=== PATIENT | male | born 1950 | race Caucasian/White ===

== ENCOUNTER 2018-05-01 14:35 | Inpatient (IN) | END 2018-05-02 18:37 | disposition home or self-care (01) | DRG 281 ==

== ENCOUNTER 2018-05-27 08:33 | Emergency (ER) | END 2018-05-27 12:58 ==

== ENCOUNTER 2018-06-20 12:57 | Inpatient (IN) | payer MEDICARE ==
[~2018-06-20] VITALS: Ht 185.4 cm; Wt 117.4 kg
[2018-06-20] VITALS (9 sets, daily range): BP systolic 131–162; BP diastolic 70–94; PULSE 77–98; RESP 16–23; Ht 185.4 cm; Wt 117.4 kg
[~2018-06-20 12:57] MED LIST: ASPI-831 PO; ATOR20TA65 PO; CARV6.2579 PO; GLIP10TA14 PO; LOSA50TA2 PO; METF-849 PO; METO-407 PO; MIRT15TA5 PO; ZOLP10TA5 PO
[2018-06-20] MEDS ORDERED: LORAZEPAM 2 MG INJ IV STA (13:16)
[2018-06-20] MEDS ORDERED: SOD CHLORIDE 0.9% 1,000 ML IV STA ×2 (13:16→14:00)
[2018-06-20] MEDS ORDERED: INSULIN LISPRO 100 UNIT/ML VIAL SC ONE (14:00)
[2018-06-20] MEDS ORDERED: ACETAMINOPHEN 325 MG TAB PO PRN (14:30)
[2018-06-20] MEDS ORDERED: ONDANSETRON 4 MG INJ IV PRN ×2 (14:30→15:30)
[2018-06-20] MEDS ORDERED: SODIUM CHLORIDE 23.4% 77 MEQ in DEXTROSE 10% 1,000 ML IV SCH (15:14)
[2018-06-20] MEDS ORDERED: POTASSIUM CHLORIDE 40 MEQ in SOD CHLORIDE 0.9% 1,000 ML IV SCH (15:14)
[2018-06-20] MEDS ORDERED: POTASSIUM CHLORIDE 30 MEQ in SOD CHLORIDE 0.9% 1,000 ML IV SCH (15:14)
[2018-06-20] MEDS ORDERED: NACL 0.9% 3 ML SYG IV SCH (15:30)
[2018-06-20] MEDS ORDERED: morphine SULFATE/PF (2 MG/2 ML) SYG IV PRN (15:30)
[2018-06-20] MEDS ORDERED: HYDROCODONE/APAP (5/325) TAB PO PRN (15:30)
[2018-06-20] MEDS ORDERED: MAGNESIUM HYDROXIDE 30ML CUP PO PRN (15:30)
[2018-06-20] MEDS ORDERED: hydrALAzine 20 MG INJ IV PRN (15:30)
[2018-06-20] MEDS ORDERED: DOCUSATE SODIUM 100 MG CAP PO PRN (15:30)
[2018-06-20] MEDS ORDERED: ALBUTEROL/IPRATROPIUM (NEB) 3 ML AMP HHN PRN (15:30)
[2018-06-20] MEDS ORDERED: NITROGLYCERIN (SL) 0.4 MG TAB SL PRN (15:30)
[2018-06-20] MEDS: ACCU-CHEK XX SCH ×8 (16:00→23:07)
--- NOTE | 2018-06-20 16:04 | NUR ---
SS Note: Consult The patient is a 68-year-old male who presented in ED with SI. Pt required admission for medical care and transferred to [facility]. SW met with pt at bedside to provide support, complete psychosocial assessment, and link pt to appropriate resources. Pt awake, alert, and oriented x4. Pt appeared depressed, hopeless, and helpless. He was calm and cooperative with SW. Pt reported hx of depression, which worsened on March 2018 when he lost his cat and was feeling lonely. Pt reported "feeling down", racing thoughts, poor appetite, and insomnia. Pt denied active SI at this time but stated he is "being passive by not eating". No HI. No AH/VH. Pt reported taking Remeron 20mg prescribed by PCP. Pt denied f/u with an outpatient mental health specialist and it's been difficult to find a psychiatrist. Per record, Pt was in the ED on 05/27/18 due to SI with plan to OD and transferred to [facility] for further psychiatric care. Per pt, he was d/c after 4 days and d/c with Rx for Remeron and Seroquel for sleeping. Pt feels Remeron is not working for for him and would like to try a different psych medication. Pt is single and has no children. Pt verbally appointed his sister, Rain Lopez , who lives in [place] as surrogate decision maker/spokesperson. Pt named his friend/supervisory training specialist, Bernardo Sandoval , as his primary support. Pt lives alone with his cat at [address]. 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 Pt is independent with ADL's and does not require DME. Pt has Medicare Part A and B insurance and has a PCP. Pt on 1:1 sitter for pt safety. placed order for [employer] psych eval. Psych eval pending for recommendation.
--- NOTE | 2018-06-20 16:11 | HP ---
Date/Time of Note Date/Time of Note DATE: 06/20/18 TIME: 16:04 Assessment/Plan VTE Prophylaxis Pharmacological prophylaxis: heparin Lines/Catheters IV Catheter Type (from [facility], [place]): Peripheral IV Assessment/Plan Hospital Course Assessment and plan: 68-year-old male diabetes, high cholesterol, depression, prior suicide ideation, hypertension who presents with DKA mild, suicidal ideation, AK I. #Depression/suicidal ideation: Again patient has been feeling this way for the last 5 days and stopped eating at that time -Continue to monitor patient likely with 1 1 sitter, will get psychiatry consult -Figueroa PIERREN #Mild DKA: Again sugars are in the mid to high 300 range with anion gap Anna elevated, bicarb slightly decreased as well. -For now we will do an admission to the ICU, start IV fluids and IV insulin. I suspect patient will correct fairly quickly however we want to make sure he gets appropriate treatment in the beginning. -Follow-up A1c -Replete electrolytes as needed #Acute kidney injury: When patient was last here in the hospital about a month ago his creatinine was 1.4. Today's 2.0 -Continue IV fluids, monitor urine output -Monitor BUN/creatinine levels, will get renal consult # DM -see above #High cholesterol: Final patient's home medications, follow-up lipid panel HPI/ROS Admit Date/Time Admit Date/Time Jun 20, 2018 at 14:17 ROS 68-year-old male past medical history of depression, diabetes, high cholesterol, prior non-ST elevation MN, hypertension who presents with elevated blood sugars and anxiety/suicidal ideation. Patient states he has been feeling depressed and having suicidal thoughts, but apparently did not go through with any attempts recently, but these have been going on for last 5 days. He subsequently stopped eating for the last 5 days. Is also had some nonbilious nonbloody vomiting mild, nausea symptoms and diarrhea. No fevers or chills, no upper or lower GI bleeding, no diarrhea constipation, no chest pain or shortness of breath. Apparently the patient had a suicide ideation symptoms as well 1 month ago and at that time he had taken clonidine extra doses, but again that was a month ago. When he came in today he was found with a creatinine of 2.0. He was also found with elevated blood sugars in the 300 range and slight elevation in his anion gap so signs of early DKA. An attempt was made apparently in the ER to have a psychiatrist evaluate the patient for his suicidal ideations, however this was not performed but a social insurance analyst has spoken to the patient today. PMH/Family/Social Past Medical History Coded Allergies: Penicillins (Verified Allergy, Unknown, 05/27/18) Past Surgical History Past Surgical Hx: no surgical history Family History Significant Family History: no pertinent family hx Social History Smoking Status: Never smoker Drug Use: none Exam/Review of Systems Vital Signs Vitals Vital Signs Date Temp Pulse Resp B/P (MAP) Pulse Ox O2 O2 Flow FiO2 Time Delivery Rate 06/20/18 97.7 98 19 145/70 98 Room Air 15:39 (95) Exam Exam Gen: lying in bed, No acute distress Head: Atraumatic Eyes: Normal Conjunctiva ENT: Normal External Ears, Nose and Mouth. Neck: Full range of motion. No meningismus. Resp: Clear to auscultation bilaterally Cardio: Regular rate and rhythm, no murmurs Abd: Soft, non tender, non distended. Normal bowel sounds Ext: no lower extremity edema bilaterally Neur: No focal deficits Medications Medications Current Medications IV Flush (NS 3 ml) 3 ml PER PROTOCOL IV ; Start 06/20/18 at 15:30 Ondansetron HCl (Zofran Inj) 4 mg Q6H PRN IV NAUSEA AND/OR VOMITING; Start 06/20/18 at 15:30 Acetaminophen (Tylenol Tab) 650 mg Q6H PRN PO PAIN LEVEL 1-3 OR FEVER; Start 06/20/18 at 15:30 Acetaminophen/ Hydrocodone Bitart ([place] (5/325)) 1 tab Q6H PRN PO MODERATE PAIN LEVEL 4-6; Start 06/20/18 at 15:30 Morphine Sulfate (morphine SULFATE (PF)) 2 mg Q4H PRN IV SEVERE PAIN LEVEL 7- 10; Start 06/20/18 at 15:30 Docusate Sodium (Colace) 100 mg Q12H PRN PO CONSTIPATION; Start 06/20/18 at 15:30 Magnesium Hydroxide (Milk Of Mag) 30 ml DAILY PRN PO CONSTIPATION; Start 06/20/18 at 15:30 Pantoprazole (Protonix Iv) 40 mg DAILY@06 IV ; Start 06/20/18 at 17:00 Heparin Sodium (Porcine) (Heparin (5000 Units/1ml)) 5,000 unit Q12 SC ; Start 06/20/18 at 17:00 Lorazepam (Ativan) 1 mg Q4H PRN IV ANXIETY; Start 06/20/18 at 15:30 Sodium Chloride 1,000 ml @ 100 mls/hr Q10H IV ; Start 06/20/18 at 16:30 Albuterol/ Ipratropium (Duoneb) 3 ml Q4H RESP THERAPY PRN HHN SHORTNESS OF BREATH; Start 06/20/18 at 15:30 Hydralazine HCl (Apresoline) 10 mg Q6H PRN IV ELEVATED BLOOD PRESSURE; Start 06/20/18 at 15:30 Nitroglycerin (Nitroglycerin (Sl Tab) 0.4 Mg) 1 tab Q5M PRN SL ANGINA; Start 06/20/18 at 15:30 Diagnostic Test (Pha) (Accu-Chek) 1 ea Q1H XX ; Start 06/20/18 at 16:00 Potassium Chloride 40 meq/ Sodium Chloride 1,020 ml @ 0 mls/hr Q0M IV ; Start 06/20/18 at 15:14 Sodium Chloride 77 meq/Potassium Chloride 40 meq/ Dextrose 1,039.25 ml @ 0 mls/hr Q0M IV ; Start 06/20/18 at 17:30 Potassium Chloride 30 meq/ Sodium Chloride 1,015 ml @ 0 mls/hr Q0M IV ; Start 06/20/18 at 15:14 Sodium Chloride 77 meq/Potassium Chloride 30 meq/ Dextrose 1,034.25 ml @ 0 mls/hr Q0M IV ; Start 06/20/18 at 15:14 Sodium Chloride 1,000 ml @ 0 mls/hr Q0M IV ; Start 06/20/18 at 16:30 Sodium Chloride 77 meq/Dextrose 1,019.25 ml @ 0 mls/hr Q0M IV ; Start 06/20/18 at 15:14 Insulin Human Regular 100 unit/ Sodium Chloride 100 ml @ 11.7 mls/hr DKA PROTOCOL IV ; Start 06/20/18 at 16:30 Aspirin (Aspirin) 81 mg DAILY PO ; Start 06/20/18 at 17:00 Atorvastatin Calcium (Lipitor) 20 mg HS PO ; Start 06/20/18 at 21:00 Carvedilol (Coreg) 6.25 mg BID PO ; Start 12/21/18 at 17:00 Mirtazapine (Remeron) 15 mg HS PO ; Start 06/20/18 at 21:00 Results Result Diagram: 06/20/18 1320 06/20/18 1320 Results 24 hrs Laboratory Tests Test 06/20/18 13:06 06/20/18 13:20 06/20/18 14:52 Bedside Glucose 344 H 279 H White Blood Count 10.1 Red Blood Count 5.33 Hemoglobin 15.6 Hematocrit 45.8 Mean Corpuscular Volume 85.9 Mean Corpuscular Hemoglobin 29.3 Mean Corpuscular 34.1 Hemoglobin Concent Red Cell Distribution Width 12.7 Platelet Count 286 Mean Platelet Volume 11.1 H Immature Granulocytes % 0.600 H Neutrophils % 67.9 Lymphocytes % 21.3 Monocytes % 7.7 Eosinophils % 2.2 Basophils % 0.3 Nucleated Red Blood Cells % 0.0 Immature Granulocytes # 0.060 H Neutrophils # 6.9 Lymphocytes # 2.2 Monocytes # 0.8 Eosinophils # 0.2 Basophils # 0.0 Nucleated Red Blood Cells # 0.0 Sodium Level 139 Potassium Level 4.6 Chloride Level 102 Carbon Dioxide Level 19 L Anion Gap 18 H Blood Urea Nitrogen 29 H Creatinine 2.09 H Est Glomerular Filtrat 32 L Rate mL/min Glucose Level 348 H Calcium Level 9.7 Total Bilirubin 0.6 Direct Bilirubin 0.00 Indirect Bilirubin 0.6 Aspartate Amino 25 Transf (AST/SGOT) Alanine 29 Aminotransferase (ALT/SGPT) Alkaline Phosphatase 119 Total Protein 7.9 Albumin 4.5 Globulin 3.40 H Albumin/Globulin Ratio 1.32 Salicylates Level < 1.0 L Acetaminophen Level < 10.0 L Ethyl Alcohol Level < 10.0 H ROBINSON RAMIREZ Jun 20, 2018 16:11
--- NOTE | 2018-06-20 16:13 | NUR ---
Nursing note: Received pt. from ER in stable condition. Pt. oriented to room, call light within reach. Belongings searched; any hazards sent to security. Pt. will be transferred to ICU per MD orders; Will give report to RN and endorse POC.
[2018-06-20] MEDS ORDERED: INSULIN REGULAR, HUMAN 100 UNIT in SOD CHLORIDE 0.9% 99 ML IV SCH ×2 (16:30)
[2018-06-20] MEDS ORDERED: SOD CHLORIDE 0.9% 1,000 ML IV SCH (16:30)
--- NOTE | 2018-06-20 16:35 | ERD ---
ER Documentation Chief Complaint Chief Complaint GEN WEAKNESS, NO APPETITE, DIARRHEA, N/V, ONSET 5 DAYS HPI Patient is a 68-year-old male with diabetes, hypertension, and depression who presents saying that he has not eaten. He said that he has had depression for the past 3 months. He said that because of his depression he has not eaten for the past 6 days. He has diarrhea but no vomiting. He denies pain. There was no blood in the diarrhea. He feels "hopeless" and admits to suicidal ideation with a plan to overdose or start of himself. He stopped his diabetes meds 1 week ago. His primary doctor is Dr. Oliver. ROS All systems reviewed and are negative except as per history of present illness. Medications Home Meds Active Scripts Aspirin (Aspirin) 81 Mg Chew, 81 MG PO DAILY, #30 TAB Prov:SMITA ORTEGA STAMP PAD MAKER 05/02/18 Carvedilol* (Carvedilol*) 6.25 Mg Tablet, 6.25 MG PO BID, #60 TAB Prov:SMITA ORTEGA STAMP PAD MAKER 05/02/18 Losartan Potassium* (Cozaar*) 50 Mg Tablet, 50 MG PO BID, #60 TAB Prov:SMITA ORTEGA STAMP PAD MAKER 05/02/18 Atorvastatin Calcium (Atorvastatin Calcium) 20 Mg Tablet, 20 MG PO HS, #30 TAB Prov:SMITA ORTEGA STAMP PAD MAKER 05/02/18 Reported Medications Metoprolol Tartrate* (Lopressor*) 100 Mg Tablet, 100 MG PO BID, #60 TAB 05/27/18 Zolpidem Tartrate* (Zolpidem Tartrate*) 10 Mg Tablet, 10 MG PO QHS PRN for INSOMNIA, #30 TAB 05/01/18 Mirtazapine* (Mirtazapine*) 15 Mg Tablet, 15 MG PO HS, TAB 05/01/18 Glipizide* (Glipizide*) 10 Mg Tablet, 10 MG PO BID, TAB 11/24/14 Metformin* (Glucophage*) 500 Mg Tab, 500 MG PO BID, TAB 11/24/14 Allergies Allergies: Coded Allergies: Penicillins (Verified Allergy, Unknown, 05/27/18) PMhx/Soc History of Surgery: Yes (CATARACT SURGERY) Anesthesia Reaction: No Hx Neurological Disorder: No Hx Respiratory Disorders: No Hx Cardiac Disorders: Yes (HTN) Hx Psychiatric Problems: Yes (ANXIETY, DEPRESSION, ) Hx Miscellaneous Medical Probl: Yes (DIABETES TYPE II, SUICIDE ATTEMPT) Hx Alcohol Use: No Hx Substance Use: No Hx Tobacco Use: No Smoking Status: Never smoker FmHx Family History: diabetes Physical Exam Vitals Vital Signs Date Temp Pulse Resp B/P (MAP) Pulse Ox O2 O2 Flow FiO2 Time Delivery Rate 06/20/18 104 13 149/85 97 Room Air 14:15 (106) 06/20/18 98.8 124 17 142/89 97 12:58 (106) Physical Exam Const: Moderate distress Head: Atraumatic Eyes: Normal Conjunctiva ENT: Normal External Ears, Nose and Mouth. Neck: Full range of motion. No meningismus. Resp: Clear to auscultation bilaterally Cardio: Tachycardic rate without murmur Abd: Soft, non tender, non distended. Normal bowel sounds Skin: No petechiae or rashes Back: No midline or flank tenderness Ext: No cyanosis, or edema Neur: Awake and alert Psych: Depressed affect with positive suicidal ideation with plan Result Diagram: 06/20/18 1320 06/20/18 1320 Results 24 hrs Laboratory Tests Test 06/20/18 13:06 06/20/18 13:20 Bedside Glucose 344 mg/dL White Blood Count 10.1 10^3/ul Red Blood Count 5.33 10^6/ul Hemoglobin 15.6 g/dl Hematocrit 45.8 % Mean Corpuscular Volume 85.9 fl Mean Corpuscular Hemoglobin 29.3 pg Mean Corpuscular Hemoglobin Concent 34.1 g/dl Red Cell Distribution Width 12.7 % Platelet Count 286 10^3/UL Mean Platelet Volume 11.1 fl Immature Granulocytes % 0.600 % Neutrophils % 67.9 % Lymphocytes % 21.3 % Monocytes % 7.7 % Eosinophils % 2.2 % Basophils % 0.3 % Nucleated Red Blood Cells % 0.0 /100WBC Immature Granulocytes # 0.060 10^3/ul Neutrophils # 6.9 10^3/ul Lymphocytes # 2.2 10^3/ul Monocytes # 0.8 10^3/ul Eosinophils # 0.2 10^3/ul Basophils # 0.0 10^3/ul Nucleated Red Blood Cells # 0.0 10^3/ul Sodium Level 139 mmol/L Potassium Level 4.6 mmol/L Chloride Level 102 mmol/L Carbon Dioxide Level 19 mmol/L Anion Gap 18 Blood Urea Nitrogen 29 mg/dl Creatinine 2.09 mg/dl Est Glomerular Filtrat Rate mL/min 32 mL/min Glucose Level 348 mg/dl Hemoglobin A1c 8.5 % Calcium Level 9.7 mg/dl Total Bilirubin 0.6 mg/dl Direct Bilirubin 0.00 mg/dl Indirect Bilirubin 0.6 mg/dl Aspartate Amino Transf (AST/SGOT) 25 IU/L Alanine Aminotransferase (ALT/SGPT) 29 IU/L Alkaline Phosphatase 119 IU/L Total Protein 7.9 g/dl Albumin 4.5 g/dl Globulin 3.40 g/dl Albumin/Globulin Ratio 1.32 Free Thyroxine 1.53 ng/dl Salicylates Level < 1.0 mg/dl Acetaminophen Level < 10.0 ug/ml Ethyl Alcohol Level < 10.0 mg/dl Current Medications Medications Dose Sig/Vaibhav Start Time Status Last (Trade) Ordered Route PRN Stop Time Admin Dose Reason Admin Sodium 1,000 ml @ Q1H STAT 06/20/18 DC 06/20/18 Chloride 1,000 mls/hr IV 13:16 13:45 06/20/18 14:15 Lorazepam 1 mg ONCE STAT 06/20/18 DC 06/20/18 (Ativan) IV 13:16 13:44 06/20/18 13:17 Sodium 1,000 ml @ Q1H STAT 06/20/18 DC 06/20/18 Chloride 1,000 mls/hr IV 14:00 14:28 06/20/18 14:59 Insulin 10 unit ONCE ONCE 06/20/18 DC 06/20/18 Human SC 14:00 14:49 Lispro 06/20/18 (Humalog) 14:01 Procedures/MDM Patient is a 68-year-old male with hypertension and diabetes who presents with depression and hyperglycemia. The patient was found to have a bicarb of 19 and a sugar of greater than 300 with a anion gap of 18. I believe this is early diabetic ketoacidosis but to be treated with subcutaneous insulin and fluids. The patient was given 2 L of normal saline and 10 units of Humalog subcutaneous. The patient will be admitted to a medical surgical bed to the care of the panel team. Tele psychiatry was consulted but has not an evaluation as of yet. The patient is not medically clear for psychiatric transfer but may require further psychiatric treatment after he has been stabilized from a medical standpoint. Critical Care: Time: 35 minutes excluding all billable procedures. Treatments/Evaluations: Close monitoring and treatment of unstable vital signs, cardiorespiratory, and neurologic status, while maintaining tight balance of fluid, respiratory, and cardiac interventions. Departure Diagnosis: Primary Impression: Hyperglycemia due to type 2 diabetes mellitus Diabetes mellitus wave guide assembler insulin use: unspecified wave guide assembler insulin use status Qualified Codes: E11.65 - Type 2 diabetes mellitus with hyperglycemia Additional Impressions: Depression Depression Type: unspecified Qualified Codes: F32.9 - Major depressive disorder, single episode, unspecified Suicidal ideation Condition: Stable NOHEMY CHAMPAGNE MD Jun 20, 2018 16:35
--- NOTE | 2018-06-20 17:16 | NUR ---
Transfer note: Pt. transferred to ICU with ALONZO Beasley and ICU Charge Nurse. Pt. transferred with 1:1 isaac. Report given to ALONOZ Odom. Addendum: 06/20/18 at 1718 by PORSCHE MCLEAN RN Pt transferred on monitor
[2018-06-20] MEDS ORDERED: SODIUM CHLORIDE 23.4% 77 MEQ, POTASSIUM CHLORIDE 40 MEQ in DEXTROSE 10% 1,000 ML IV SCH (17:30)
[2018-06-20] MEDS: SOD CHLORIDE 0.9% 1,000 ML IV SCH (17:39)
[2018-06-20] MEDS: SODIUM CHLORIDE 23.4% 77 MEQ, POTASSIUM CHLORIDE 30 MEQ in DEXTROSE 10% 1,000 ML IV SCH (18:29)
[2018-06-20] MEDS ORDERED: LACTATED RINGER'S 1,000 ML IV ONE (18:30)
--- NOTE | 2018-06-20 18:52 | NUR ---
EOSS: PATIENT ARRIVED ON THE UNIT AT 1715, PATIENT ALERT AND ORIENTED X4. CONNECT PATIENT TO MONITOR AND PATIENT APPEARS CALM AND COOPERATIVE. STARTED DKA PROTOCOL PER ORDER.
[2018-06-20] MEDS: ASPIRIN 81 MG TAB PO SCH (19:05)
[2018-06-20] MEDS: PANTOPRAZOLE 40 MG INJ IV SCH (19:05)
[2018-06-20] MEDS: HEPARIN 5,000 UNIT/1 ML VIAL SC SCH (19:08)
--- NOTE | 2018-06-20 20:44 | NUR ---
DR. JIMENEZ MADE AWARE OF LABS. RESULTS, ORDERS RECEIVED.
[2018-06-20] MEDS: ATORVASTATIN 20 MG TAB PO SCH (20:59)
[2018-06-20] MEDS ORDERED: METOPROLOL 100 MG TAB PO SCH (21:00)
[2018-06-20] MEDS ORDERED: MIRTAZAPINE 15 MG TAB PO SCH (21:00)
[2018-06-20] MEDS ORDERED: INSULIN GLARGINE [LANTus] (100 UNITS/ML) SYG SC ONE (22:00)
[2018-06-20] MEDS ORDERED: MAGNESIUM SULFATE 3 GM in DEXTROSE 5% 100 ML IVPB ONE (22:00)
[2018-06-20] MEDS: ZOLPIDEM 5 MG TAB PO PRN (23:29)
[2018-06-21] VITALS (19 sets, daily range): BP systolic 107–165; BP diastolic 58–100; PULSE 70–97; RESP 12–28
[2018-06-21] MEDS: ACCU-CHEK XX SCH ×14 (01:05→12:28)
[2018-06-21] MEDS: HEPARIN 5,000 UNIT/1 ML VIAL SC SCH ×3 (01:14→20:38)
[2018-06-21] MEDS: SOD CHLORIDE 0.9% 1,000 ML IV SCH ×3 (02:30→18:57)
[2018-06-21] MEDS: SODIUM CHLORIDE 23.4% 77 MEQ, POTASSIUM CHLORIDE 30 MEQ in DEXTROSE 10% 1,000 ML IV SCH ×2 (03:35→09:33)
[2018-06-21] MEDS: PANTOPRAZOLE 40 MG INJ IV SCH (05:57)
[2018-06-21] MEDS ORDERED: GLUCOSE GEL 15 GRAM TUBE PO PRN ×2 (09:00)
[2018-06-21] MEDS ORDERED: GLUCOSE GEL 15 GRAM TUBE BUCCAL PRN (09:00)
[2018-06-21] MEDS ORDERED: GLUCAGON 1 MG INJ IM PRN (09:00)
[2018-06-21] MEDS ORDERED: DEXTROSE 50% 50 ML SYRINGE IV PRN ×2 (09:00)
[2018-06-21] MEDS: ASPIRIN 81 MG TAB PO SCH (09:04)
--- NOTE | 2018-06-21 09:08 | PN ---
Date/Time of Note Date/Time of Note DATE: 06/21/18 TIME: 09:05 Assessment/Plan VTE Prophylaxis Risk score (from Nsg)>0 risk: 3 SCD applied (from Nsg): Yes Pharmacological prophylaxis: heparin Lines/Catheters IV Catheter Type (from Nrsg): Peripheral IV Urinary Cath still in place: No Assessment/Plan Hospital Course S: Patient had no acute events overnight, anion gap is closed, sugars still in the low 200 range, still on insulin drip and IV fluids presently. Waiting to be seen by psychiatry team. O: VS - see below PE: Gen: lying in bed, No acute distress Head: Atraumatic Eyes: Normal Conjunctiva ENT: Normal External Ears, Nose and Mouth. Neck: Full range of motion. No meningismus. Resp: Clear to auscultation bilaterally Cardio: Regular rate and rhythm, no murmurs Abd: Soft, non tender, non distended. Normal bowel sounds Ext: no lower extremity edema bilaterally Neur: No focal deficits Assessment and plan: 68-year-old male diabetes, high cholesterol, depression, prior suicide ideation, hypertension who presents with DKA mild, suicidal ideation, AK I. #Depression/suicidal ideation: Again patient has been feeling this way for the last 5 days and stopped eating at that time -Continue to monitor patient, for now with 1:1 sitter, awaiting psychiatry consult -Figueroa MONTANO #Mild DKA: DKA has resolved, sugars in the low 200 range. A1c equals 8.7 -We will switch over to subcu insulins -aspart with meals, Lantus, sliding scale -Monitor sugars, start carb controlled diet -Replete electrolytes as needed #Acute kidney injury: When patient was last here in the hospital about a month ago his creatinine was 1.4. On admission 2.0, but trending down, this morning 1.26 -Continue IV fluids, monitor urine output -Monitor BUN/creatinine levels, consider renal consult # DM -see above #High cholesterol: Final patient's home medications, follow-up lipid panel Critical care time spent on patient care today equals 45 minutes. Exam/Review of Systems Vital Signs Vitals Vital Signs Date Temp Pulse Resp B/P (MAP) Pulse Ox O2 O2 Flow FiO2 Time Delivery Rate 06/21/18 81 24 148/90 99 Room Air 06:00 (109) 06/21/18 98.5 04:00 Intake and Output 06/20/18 06/20/18 06/21/18 1515:00 23:00 07:00 IntakeIntake Total 2032.5 ml 2006.7 ml OutputOutput Total 40 ml 900 ml BalanceBalance 1992.5 ml 1106.7 ml ROBINSON RAMIREZ Jun 21, 2018 09:08
[2018-06-21] MEDS ORDERED: INSULIN GLARGINE [LANTus] (100 UNITS/ML) SYG SC SCH (09:30)
--- NOTE | 2018-06-21 09:38 | PSY ---
Date/Time of Note Date/Time of Note DATE: 06/21/18 TIME: 09:37 Psychiatric Subjective Eval Consent Pt consented to telemedicine: No Subjective Evaluation Patient location: inpatient Chief Complaint: GEN WEAKNESS, NO APPETITE, DIARRHEA, N/V, ONSET 5 DAYS History of present illness Patient is a 68-year-old male with past medical history of diabetes, high cholesterol, prior non-ST elevation UT, hypertension who presents with elevated blood sugars. On a [id number] evaluation, patient states he has been feeling depressed and hopeless, he however denies suicidal ideation and contracted for safety, patient states he had suicidal thoughts about 4 weeks ago and actually overdosed on his blood pressure medication subsequently he was admitted at [facility] inpatient behavioral health unit. Patient states he was not satisfied with the care at [facility], states he continued with ringing in the ear rumination constant rumination. He states his reason for hospitalization this time is more medical with some feeling of depression and hopelessness but he denies suicidal ideation. Discussed risk and benefits of mood stabilizers antidepressant and Abilify antipsychotic for his rumination and patient verbalized understanding Past psychiatric history Long history of depression and overdosed 4 weeks ago with his blood pressure medication, and was recently having suicidal ideation to starve staff himself to date about a week ago Medical history Problems Medical Problems: (1) Anxiety Status: Acute (2) Depression Status: Acute (3) Hyperglycemia due to type 2 diabetes mellitus Status: Acute (4) Hypertension Status: Acute (5) Hypertensive urgency Status: Acute (6) Insomnia Status: Acute (7) Non-STEMI (non-ST elevated myocardial infarction) Status: Acute (8) Suicidal ideation Status: Acute (9) Suicide threat or attempt Status: Acute Allergies: Coded Allergies: Penicillins (Verified Allergy, Unknown, 05/27/18) Substance Abuse Substance use: No known substance abuse Substance abuse history: No Prior substance abuse treatmen: No Social History Marital status: single DPA/Conservatorship: No Psychiatric Objective Eval Review of Systems: Review of Systems: Not Applicable Physical Examination: Sleep: Terminal Appetite: Decreased Energy: Decreased Interest: Decreased Mental Status Examination: Appearance: Poor Hygiene Eye Contact: Good Psychomotor Activity: Slow Behavior: Cooperative Speech: Clear AFFECT: Flat Mood: Depressed Though Process: Linear Thought Content: Other (Rumination) Orientation: x4 Insight: Intact Judgement: Intact Laboratory Results Laboratory Tests Test 06/20/18 13:06 06/20/18 13:20 06/20/18 14:52 06/20/18 16:01 Bedside Glucose 344 mg/dL 279 mg/dL White Blood 10.1 10^3/ul Count Red Blood Count 5.33 10^6/ul Hemoglobin 15.6 g/dl Hematocrit 45.8 % Mean 85.9 fl Corpuscular Volume Mean 29.3 pg Corpuscular Hemoglobin Mean 34.1 g/dl Corpuscular Hemoglobin Conc ent Red Cell 12.7 % Distribution Width Platelet Count 286 10^3/UL Mean Platelet 11.1 fl Volume Immature 0.600 % Granulocytes % Neutrophils % 67.9 % Lymphocytes % 21.3 % Monocytes % 7.7 % Eosinophils % 2.2 % Basophils % 0.3 % Nucleated Red 0.0 /100WBC Blood Cells % Immature 0.060 10^3/ul Granulocytes # Neutrophils # 6.9 10^3/ul Lymphocytes # 2.2 10^3/ul Monocytes # 0.8 10^3/ul Eosinophils # 0.2 10^3/ul Basophils # 0.0 10^3/ul Nucleated Red 0.0 10^3/ul Blood Cells # Sodium Level 139 mmol/L Potassium Level 4.6 mmol/L Chloride Level 102 mmol/L Carbon Dioxide 19 mmol/L Level Anion Gap 18 Blood Urea 29 mg/dl Nitrogen Creatinine 2.09 mg/dl Est Glomerular 32 mL/min Filtrat Rate mL/min Glucose Level 348 mg/dl Hemoglobin A1c 8.5 % Calcium Level 9.7 mg/dl Total Bilirubin 0.6 mg/dl Direct 0.00 mg/dl Bilirubin Indirect 0.6 mg/dl Bilirubin Aspartate Amino 25 IU/L Transf (AST/SGO T) Alanine 29 IU/L Aminotransferas e (ALT/SGPT) Alkaline 119 IU/L Phosphatase Total Protein 7.9 g/dl Albumin 4.5 g/dl Globulin 3.40 g/dl Albumin/Globuli 1.32 n Ratio Free Thyroxine 1.53 ng/dl Salicylates < 1.0 mg/dl Level Acetaminophen < 10.0 ug/ml Level Ethyl Alcohol < 10.0 mg/dl Level Prothrombin 13.7 Sec Time Prothrombin 1.1 Time Ratio INR 1.04 International Normalized Rati o Activated 28.8 Sec Partial Thrombo plast Time Creatine Kinase 116 IU/L Creatine Kinase 2.0 Index Creatinine 2.34 ng/ml Kinase MB (Mass) Troponin I 0.079 ng/ml Test 06/20/18 16:56 06/20/18 17:23 06/20/18 18:11 06/20/18 19:25 Phosphorus 3.0 mg/dl Level Magnesium Level 1.4 mg/dl Bedside Glucose 202 mg/dL 219 mg/dL 213 mg/dL Test 06/20/18 19:41 06/20/18 20:00 06/20/18 20:14 06/20/18 20:40 Sodium Level 142 mmol/L Potassium Level 3.7 mmol/L Chloride Level 108 mmol/L Carbon Dioxide 22 mmol/L Level Anion Gap 12 Blood Urea 24 mg/dl Nitrogen Creatinine 1.41 mg/dl Est Glomerular 50 mL/min Filtrat Rate mL/min Glucose Level 180 mg/dl Calcium Level 7.9 mg/dl Phosphorus 2.3 mg/dl Level Magnesium Level 1.3 mg/dl Blood Gas Blood venous Specimen Source Arterial Blood 06/20/2018 7:45 Date Drawn :08 PM Arterial Blood VENOUS LINE Gas Puncture Site Lobo Test N/A Venous Blood pH 7.353 Venous Blood 44.7 mmHG pCO2 (Temp Corrected ) Venous Blood 17.7 mmHG pO2 (Temp Corrected ) Venous Blood 24.3 mmol/L HCO3 Venous Blood 28.0 mmHG Oxygen Saturation Venous Blood -1.5 mmol/L Base Excess Venous Blood 14.0 g/dl Total Hemoglobin Venous Blood 27.5 % Oxyhemoglobin Venous Blood 1.5 % Methemoglobin Carboxyhemoglob 0.3 % in Blood Gas 37.0 C Temperature Blood Gas ROOM AIR Modality FiO2 21.0 % Blood Gas MG Notified Whom Blood Gas 06/20/2018 7:53 Notified Time :54 PM Bedside Glucose 197 mg/dL Urine Color YELLOW Urine Clarity SLIGHTLY CLOUD Y Urine pH 5.0 Urine Specific 1.017 [place] Urine Ketones TRACE mg/dL Urine Nitrite NEGATIVE mg/dL Urine Bilirubin NEGATIVE mg/dL Urine NEGATIVE mg/dL Urobilinogen Urine Leukocyte NEGATIVE Chelsi/u Esterase l Urine 142 /HPF Microscopic RBC Urine 4 /HPF Microscopic WBC Urine Squamous FEW /HPF Epithelial Cell s Urine Bacteria FEW /HPF Urine Mucus FEW /HPF Urine 3+ mg/dL Hemoglobin Urine Random 199.33 mg/dl Creatinine Urine Random 120 mmol/L Sodium Urine Glucose 2+ mg/dL Urine Total 18.0 mg/dl Protein Urine Opiates Negative Screen Urine Negative Barbiturates Urine Negative Amphetamines Screen Urine Negative Benzodiazepines Screen Urine Cocaine Negative Screen Urine Negative Cannabinoids Test 06/20/18 21:03 06/20/18 22:00 06/20/18 22:04 06/20/18 22:06 Bedside Glucose 162 mg/dL 104 mg/dL Blood Gas Blood venous Specimen Source Arterial Blood 06/20/2018 10:0 Date Drawn 0:25 PM Arterial Blood VENOUS LINE Gas Puncture Site Lobo Test N/A Venous Blood pH 7.342 Venous Blood 48.9 mmHG pCO2 (Temp Corrected ) Venous Blood 24.4 mmHG pO2 (Temp Corrected ) Venous Blood 25.9 mmol/L HCO3 Venous Blood 39.6 mmHG Oxygen Saturation Venous Blood -0.4 mmol/L Base Excess Venous Blood 14.0 g/dl Total Hemoglobin Venous Blood 39.2 % Oxyhemoglobin Venous Blood 0.5 % Methemoglobin Carboxyhemoglob 0.5 % in Blood Gas 37.0 C Temperature Blood Gas ROOM AIR Modality FiO2 21.0 % Blood Gas UP Notified Whom Blood Gas 06/20/2018 10:1 Notified Time 3:20 PM Sodium Level 143 mmol/L Potassium Level 3.8 mmol/L Chloride Level 106 mmol/L Carbon Dioxide 24 mmol/L Level Anion Gap 13 Blood Urea 24 mg/dl Nitrogen Creatinine 1.59 mg/dl Est Glomerular 43 mL/min Filtrat Rate mL/min Glucose Level 95 mg/dl Calcium Level 8.8 mg/dl Phosphorus 2.4 mg/dl Level Magnesium Level 1.4 mg/dl Creatine Kinase 91 IU/L Creatine Kinase 2.1 Index Creatinine 1.92 ng/ml Kinase MB (Mass) Troponin I 0.095 ng/ml Test 06/20/18 22:54 06/20/18 23:52 06/21/18 00:59 06/21/18 02:00 Bedside Glucose 103 mg/dL 91 mg/dL 102 mg/dL Blood Gas Blood venous Specimen Source Arterial Blood 06/21/2018 2:0 Date Drawn 0:34 AM Arterial Blood VENOUS LINE Gas Puncture Site Lobo Test N/A Venous Blood pH 7.368 Venous Blood 41.1 mmHG pCO2 (Temp Corrected ) Venous Blood 37.8 mmHG pO2 (Temp Corrected ) Venous Blood 23.1 mmol/L HCO3 Venous Blood 71.6 mmHG Oxygen Saturation Venous Blood -2.1 mmol/L Base Excess Venous Blood 14.7 g/dl Total Hemoglobin Venous Blood 71.0 % Oxyhemoglobin Venous Blood 0.2 % Methemoglobin Carboxyhemoglob 0.7 % in Blood Gas 37.0 C Temperature Blood Gas ROOM AIR Modality FiO2 21.0 % Blood Gas UP Notified Whom Blood Gas 06/21/2018 2:4 Notified Time 3:28 AM Test 06/21/18 02:02 06/21/18 02:04 06/21/18 02:59 06/21/18 04:05 Sodium Level 142 mmol/L Potassium Level 3.9 mmol/L Chloride Level 108 mmol/L Carbon Dioxide 22 mmol/L Level Anion Gap 12 Blood Urea 21 mg/dl Nitrogen Creatinine 1.31 mg/dl Est Glomerular 54 mL/min Filtrat Rate mL/min Glucose Level 100 mg/dl Calcium Level 8.8 mg/dl Magnesium Level 1.9 mg/dl Bedside Glucose 111 mg/dL 108 mg/dL 150 mg/dL Test 06/21/18 04:52 06/21/18 05:58 06/21/18 06:00 06/21/18 06:36 Bedside Glucose 178 mg/dL 227 mg/dL Blood Gas Blood venous Specimen Source Arterial Blood 06/21/2018 6:3 Date Drawn 5:50 AM Arterial Blood VENOUS LINE Gas Puncture Site Lobo Test N/A Venous Blood pH 7.339 Venous Blood 47.0 mmHG pCO2 (Temp Corrected ) Venous Blood 28.9 mmHG pO2 (Temp Corrected ) Venous Blood 24.7 mmol/L HCO3 Venous Blood 54.0 mmHG Oxygen Saturation Venous Blood -1.4 mmol/L Base Excess Venous Blood 14.3 g/dl Total Hemoglobin Venous Blood 53.5 % Oxyhemoglobin Venous Blood 0.3 % Methemoglobin Carboxyhemoglob 0.7 % in Blood Gas 37.0 C Temperature Blood Gas ROOM AIR Modality FiO2 21.0 % Blood Gas MG Notified Whom Blood Gas 06/21/2018 6:4 Notified Time 3:33 AM White Blood 8.4 10^3/ul Count Red Blood Count 4.44 10^6/ul Hemoglobin 13.1 g/dl Hematocrit 39.5 % Mean 89.0 fl Corpuscular Volume Mean 29.5 pg Corpuscular Hemoglobin Mean 33.2 g/dl Corpuscular Hemoglobin Conc ent Red Cell 12.7 % Distribution Width Platelet Count 167 10^3/UL Mean Platelet 11.2 fl Volume Immature 0.600 % Granulocytes % Neutrophils % 52.7 % Lymphocytes % 32.9 % Monocytes % 8.9 % Eosinophils % 4.5 % Basophils % 0.4 % Nucleated Red 0.0 /100WBC Blood Cells % Immature 0.050 10^3/ul Granulocytes # Neutrophils # 4.4 10^3/ul Lymphocytes # 2.8 10^3/ul Monocytes # 0.8 10^3/ul Eosinophils # 0.4 10^3/ul Basophils # 0.0 10^3/ul Nucleated Red 0.0 10^3/ul Blood Cells # Sodium Level 138 mmol/L Potassium Level 4.5 mmol/L Chloride Level 105 mmol/L Carbon Dioxide 23 mmol/L Level Anion Gap 10 Blood Urea 20 mg/dl Nitrogen Creatinine 1.26 mg/dl Est Glomerular 57 mL/min Filtrat Rate mL/min Glucose Level 239 mg/dl Hemoglobin A1c 8.7 % Calcium Level 8.6 mg/dl Phosphorus 2.7 mg/dl Level Magnesium Level 1.7 mg/dl Triglycerides 127 mg/dl Level Cholesterol 131 mg/dl Level LDL 79 mg/dl Cholesterol, Calculated HDL Cholesterol 27 mg/dl Cholesterol/HDL 4.8 RATIO Ratio Thyroid 1.560 MIU/L Stimulating Hormone (TSH) Test 06/21/18 06:59 06/21/18 08:10 06/21/18 09:34 Bedside Glucose 231 mg/dL 220 mg/dL 206 mg/dL Assessment and Plan Assessment/Diagnosis Diagnosis Mood disorder Recommendation/Plan Medication Management Remeron 30 mg at bedtime, Abilify 2 mg daily, Lamictal 25 mg twice a day Multiple antipsychotics: Yes Psychotherapy Provide supportive therapy Discharge Disposition: Other Legal Status: Voluntary (Patient is currently denying suicidal ideation and does not meets criteria for 5150 hold) LATANYA TSAI NP Jun 21, 2018 09:38
--- NOTE | 2018-06-21 11:16 | NUR ---
NUTRITION NOTE: Consult received. Pt admitted with suicidal idealation, elevated BG's, A1C 8.7%. Currently on insulin drip, BGs still in 200's. Pt seen asleep at time of visit, has 1:1 sitter. Pt was admitted about 1 month ago for suicidal idealation. Currently pending psych eval. Diet education is not appropriate at this time, will f/u when able to. Noted due to mental health status, pt reported not eating in 5 days. Will be starting on a carb controlled diet today. Will monitor PO tolerance and intake.
--- NOTE | 2018-06-21 12:03 | CONS ---
DATE OF ADMISSION: 06/20/2018 DATE OF CONSULTATION: 06/20/2018 TYPE OF CONSULTATION: Nephrology. REASON FOR CONSULTATION: Acute kidney injury. PHYSICIAN REQUESTING CONSULTATION: Dr. Ramirez. HISTORY OF PRESENT ILLNESS: Elliott Headley is a 68-year-old male with a past medical history of depres aurora, diabetes, dyslipidemia, history of coronary artery disease, hypertension who presents to [facility] Emergency Room with elevated blood sugars, anxiety and suicidal ideation. The patient states he has been feeling depressed and having suicidal thoughts over the last several days. The pa tient stopped eating. He also complained of some nonbilious, nonbloody emesis and nausea. The patie nt was subsequently brought into the emergency room. Upon arrival, the patient was noted to have a c reatinine of 2.0, blood sugars greater than 300. No urinalysis was performed. The patient was initia lly admitted to med/surg, but given his elevated sugars, was placed on insulin drip and transferred t o the intensive care unit. In terms of patient's renal history, the patient has a baseline creatinine of approximately 1.1 to 1. 2 mg/dL. On admission, the patient's creatinine was 2.9 mg/dL. The patient admits to having polyuri a, admits to nausea and vomiting. Denies any hemoptysis, hematemesis, hematochezia. The patient hudson s take an ARB at home. PAST MEDICAL HISTORY: See above, history of depression, diabetes, hypertension, history of CKD, hist ory of suicidal ideation. ALLERGIES: THE PATIENT IS ALLERGIC TO PENICILLIN. FAMILY HISTORY: No family history of kidney disease. SOCIAL HISTORY: Does not actively drink, smoke or do drugs. MEDICATIONS: The patient's medications have been reviewed. REVIEW OF SYSTEMS: A 14-point review of systems was conducted. Pertinent positives stated in the HP I, otherwise negative. PHYSICAL EXAMINATION: VITAL SIGNS: Blood pressure is 145/70, respirations 19, pulse 98, temperature 97.7. HEENT: Head is normocephalic. NECK: Supple. HEART: Regular rate. LUNGS: Show diminished breath sounds at the base. ABDOMEN: Soft, nontender to palpation. No rebound or guarding. EXTREMITIES: Negative for clubbing, cyanosis. No edema. DERMATOLOGIC: No rashes. MUSCULOSKELETAL: No joint effusion. NEUROLOGIC: No focal deficits. LABORATORY DATA: Shows white count 10.1, hemoglobin 15.6, platelet count 287. Sodium 139, potassium 4.6, BUN 29, creatinine 2.02, glucose 358, magnesium 1.4. ASSESSMENT AND PLAN: This is a 68-year-old male who presents with: 1. Nonoliguric acute kidney injury with previous baseline creatinine of 1.1 mg/dL. Etiology of acut e kidney injury is likely secondary to hemodynamics, possible volume depletion. Other possibilities such as acute interstitial nephritis or tubular injury are of consideration. Low suspicion for acute glomerulonephritis or vasculitis, given patient's clinical presentation. Plan at this point is to c heck a urinalysis with microanalysis, check urine electrolytes. We will check a renal ultrasound. W e will continue the patient on aggressive intravenous hydration. Recommend also to maintain euglycem ia, which will help prevent osmotic diuresis. Otherwise, continue supportive care, renally dose all medications, avoid nephrotoxins. 2. Mineral bone disorder. Monitor calcium and phosphorus levels. 3. Metabolic acidosis. Etiology is secondary to acute kidney injury, possible early diabetic ketoac idosis. The patient has an anion gap of 18, and a glucose of 348. Plan at this point is to continue the patient on IV hydration. Agree with insulin drip. Will check a urinalysis to see if there is a ny evidence of ketones. No need for bicarbonate therapy at this time. 4. Diabetes. The patient is going to be started on an insulin drip. Continue to monitor. Continue IV hydration. 5. Depression, suicidal ideation. Follow up with psychiatry. Thank you, Dr. Ramirez, for this interesting consult. It will be a pleasure to follow the patient with you throughout the hospital course. Dictated By: MICHAEL WILLIS DO NR/NTS Conf#: [id number] DID#: [id number] CC: ROBINSON RAMIREZ;*EndCC*
[2018-06-21] MEDS: ARIPIPRAZOLE 2 MG TAB PO SCH (12:20)
[2018-06-21] MEDS: INSULIN ASPART [NOVOLOG] 3 ML PEN SC SCH ×5 (12:23→20:48)
--- NOTE | 2018-06-21 12:35 | NUR ---
PT NOTE , RECEIVED MD ORDER WHILE PATIENT WAS ON MED-SURG UNIT , HOWEVER IS NOW TRANSFERRED TO ICU, PT DEPARTMENT WILL REQUIRE NEW MD ORDERS TO INITIATE PT EVALUATION DEEMED APPROPRIATE BY MD .
--- NOTE | 2018-06-21 12:55 | PN ---
DATE: 06/21/2018 SUBJECTIVE: The patient is stable. The patient is on insulin drip. No other events noted. No hemo ptysis, hematemesis, hematochezia. OBJECTIVE: VITAL SIGNS: Blood pressure is 148/90, respirations 24, pulse 81, temperature 98.5. HEENT: Head is normocephalic. NECK: Supple. HEART: Regular rate. LUNGS: Show diminished breath sounds at the base. ABDOMEN: Soft, nontender to palpation. No rebound or guarding. EXTREMITIES: Negative for clubbing, cyanosis, no edema. DERMATOLOGIC: No rashes. MUSCULOSKELETAL: No joint effusion. NEUROLOGIC: No change in exam. MEDICATIONS: The patient's medications have been reviewed. LABORATORY DATA: From 06/21/2018, shows sodium 142, potassium 3.9, BUN 21, creatinine 1.31. White c ount 8.4, hemoglobin 13.1, platelet count 167. Renal ultrasound is unremarkable. Urine shows FENa of greater than 1%, a protein creatinine ratio approximately 150 mg per gram of creatinine. ASSESSMENT AND PLAN: 1. Nonoliguric acute kidney injury with a previous baseline creatinine of 1.1 mg/dL. Etiology is se condary to hemodynamics. The patient's urinalysis shows evidence of hematuria but noted bacteria can be seen and UTI. The patient's FENa is greater than 1%. The patient has nonglomerular proteinuria. The patient's renal function has been improving with IV fluids. At this point, will continue curre nt treatment plan. Continue IV hydration. Continue supportive care, renally dose all meds. 2. Anemia. Monitor H and H levels. 3. Mineral bone disorder. Will monitor calcium and phosphorus levels. 4. Diabetic ketoacidosis. The patient is currently on insulin drip. The patient's acidosis has sig nificantly improved. Will continue current medical management. 5. Diabetes with DKA. Continue current treatment plan as stated above. 6. Dyslipidemia. Continue medical management. 7. History of depression, suicidal ideation. Continue current treatment plan. Dictated By: MICHAEL ZHANG/NTS Conf#: [id number] DID#: [id number] CC: ROBINSON RAMIREZ;*EndCC*
--- NOTE | 2018-06-21 18:20 | NUR ---
REPORT GIVEN TO ALONZO MARTINEZ. PT STABLE WITH NO SIGN OF DISTRESS OR DISCOMFORT. V.S STABLE. ONCOMING RN VERBALIZES UNDERSTANDING FOR CONTINUITY OF CARE. PT'S SECURITY TAG SENT WITH PT TO ROOM 5536. PER CLERICAL AIDE TEACHER THEY WILL TAKE BAG AND BELONGINGS TO PT IN RM# [id number]. PT WENT WITH A 1:1 SITTER FOR SUICIDAL IDEATION. CARE GIVEN PER PROTOCOL
--- NOTE | 2018-06-21 18:28 | NUR ---
Received patient at this time in no acute distress. Will monitor. Sitter at bedside.
--- NOTE | 2018-06-21 19:04 | NUR ---
EOSS Patient alert and oriented x 4. IV fluids infusing. Photographs of sacrum and heels taken. Patient preoccupied with finding his keys. Security contacted to bring belongings from safe to inspect them with the patient. Will endorse to structural steel shop supervisor nurse to follow up. Patient assessed for suicidal ideations, denies any thoughts of harming himself and contracted for safety. Dr Taylor informed and NON to discontinue 1:1 sitter at this time. Patient remains in room close to nurse's station. Will monitor and endorse plan of care at this time.
[2018-06-21] MEDS: ATORVASTATIN 20 MG TAB PO SCH (20:35)
[2018-06-21] MEDS: ACETAMINOPHEN 325 MG TAB PO PRN (20:35)
[2018-06-21] MEDS ORDERED: MIRTAZAPINE 15 MG TAB PO SCH (21:00)
--- NOTE | 2018-06-21 21:49 | NUR ---
MIRTAZAPINE and REMERON med not in stock. Notified pharmacy. Will administer once it arrives.
[2018-06-21] MEDS: LAMOTRIGINE 25 MG TAB PO SCH (22:05)
[2018-06-22 01:41] VITALS: BP 149/74; PULSE 89; RESP 18
--- NOTE | 2018-06-22 01:56 | NUR ---
Pt observed to have new onset of tremors 30 minutes after remeron 30MG PO given. Remeron was given at 0003. Pt states he takes remeron 15MG at home and has never taken 30MG. Pt states, "I have tremors but never been this bad before". EMAR states to notify MD immediately if pt develops tremors. Sent text to notifying him. Received new order for Ativan 1MG IV X1 NOW. Also, to endorse to next shift to inform Luisa that dose needs to be switched back to 15MG. Carried out orders. Will endorse to next shift. Will continue to monitor pt.
[2018-06-22] MEDS: ACCU-CHEK XX SCH (02:00)
[2018-06-22] MEDS ORDERED: LORAZEPAM 4 MG/ML VIAL IV ONE (02:06)
--- NOTE | 2018-06-22 05:51 | NUR ---
EOSS A&Ox3. All due meds given. Pt c/o pain. Pain med given. Pt had high temp. Tylenol given. Temp resolved. Meds arrived late. 2100 remeron given at 0003. Pt had reaction to med. Ativan given. Tremor resolved. Hourly rounding done. Bed left in lowest position with bed alarm on. Call light left within reach.
[2018-06-22] MEDS: PANTOPRAZOLE 40 MG INJ IV SCH (05:59)
[2018-06-22] MEDS ORDERED: INSULIN GLARGINE [LANTus] (100 UNITS/ML) SYG SC SCH (08:00)
[2018-06-22 08:26] VITALS: BP 158/85; PULSE 91; RESP 18
[2018-06-22] MEDS: INSULIN ASPART [NOVOLOG] 3 ML PEN SC SCH ×7 (09:01→20:44)
[2018-06-22] MEDS: LAMOTRIGINE 25 MG TAB PO SCH ×2 (09:05→22:13)
[2018-06-22] MEDS: ASPIRIN 81 MG TAB PO SCH (09:05)
[2018-06-22] MEDS: HEPARIN 5,000 UNIT/1 ML VIAL SC SCH ×2 (09:10→22:17)
[2018-06-22] MEDS: ARIPIPRAZOLE 2 MG TAB PO SCH (10:11)
--- NOTE | 2018-06-22 10:48 | NUR ---
Called Luisa DATABASES COMPUTER CONSULTANT regarding lowering dosage of psychiatric medication d/t adverse reaction during manager night. Luisa unavailable at this time; will contact hospitalist.
--- NOTE | 2018-06-22 12:17 | PN ---
DATE: 06/22/2018 SUBJECTIVE: The patient was transferred from ICU back to [facility]-surg. No other events noted. No hemop tysis, hematemesis, hematochezia. OBJECTIVE: VITAL SIGNS: Blood pressure is 149/74, respiration 19, pulse 89, temperature 97.6. HEENT: Head is normocephalic. NECK: Supple. HEART: Regular rate. LUNGS: Show diminished breath sounds at the base. ABDOMEN: Soft, nontender to palpation. No rebound or guarding. EXTREMITIES: Negative for clubbing, cyanosis. No edema. DERMATOLOGIC: No rashes. MUSCULOSKELETAL: No joint effusions. NEUROLOGIC: No change in exam. MEDICATIONS: Have been reviewed. LABORATORY DATA: From 04/21/2018 was reviewed. Laboratory data from 06/22/2018 are pending. ASSESSMENT AND PLAN: 1. Nonoliguric acute kidney injury. Previous baseline creatinine is 1.1 mg/dL. Etiology of acute k idney injury is secondary to hemodynamics. The patient's renal function is improved with IV hydratio n, returning back to baseline. At this point, we will discontinue IV fluids. We will continue suppo rtive care, renally dose meds, avoid nephrotoxins. 2. Anemia. Monitor hemoglobin and hematocrit levels. 3. Mineral bone disorder. Monitor calcium and phosphorus levels. 4. Diabetes with mild ketoacidosis, improved. Continue current insulin regimen. 5. Dyslipidemia. Continue statin therapy. 6. History of depression, suicidal ideation. Follow up with psychiatry. Dictated By: MICHAEL ZHANG/REBECA Conf#: [id number] DID#: [id number] CC: EULALIO PELAEZ NP; ROBINSON RAMIREZ;*EndCC*
[2018-06-22 14:58] VITALS: BP 144/73; PULSE 91; RESP 18
--- NOTE | 2018-06-22 15:29 | NUR ---
SS NOTE REFERRAL FOR [facility] AND TO PROVIDE RESOURCES FOR OUTPATIENT THERAPY. MET WITH PT AT BEDSIDE. DISCUSSED [facility] AND PROVIDED FORM. PT STATED HE WOULD WANT HIS SISTER, RADHA KINGSLEY [phone], WHO LIVES IN [place] HIS SURROGATE DECISION MAKER AND STATED HE DOES NOT WISH TO PROLONG LIFE AT THE END-OF-LIFE. PROVIDED PT WITH OUTPATIENT MENTAL HEALTH RESOURCES. PT DENIED ANY FURTHER NEEDS OR CONCERNS AT THIS TIME. SW TO REMAIN AVAILABLE.
--- NOTE | 2018-06-22 18:01 | PN ---
Date/Time of Note Date/Time of Note DATE: 06/22/18 TIME: 17:58 Assessment/Plan VTE Prophylaxis Risk score (from Nsg)>0 risk: 5 SCD applied (from Nsg): Yes Pharmacological prophylaxis: heparin Lines/Catheters IV Catheter Type (from Nrsg): Peripheral IV Urinary Cath still in place: No Assessment/Plan Hospital Course S: Patient had no acute events overnight, tolerating diet, taking p.o. medications. Seen by renal team today, psychiatry team yesterday. O: VS - see below PE: Gen: lying in bed, No acute distress Head: Atraumatic Eyes: Normal Conjunctiva ENT: Normal External Ears, Nose and Mouth. Neck: Full range of motion. No meningismus. Resp: Clear to auscultation bilaterally Cardio: Regular rate and rhythm, no murmurs Abd: Soft, non tender, non distended. Normal bowel sounds Ext: no lower extremity edema bilaterally Neur: No focal deficits Assessment and plan: 68-year-old male diabetes, high cholesterol, depression, prior suicide ideation, hypertension who presents with DKA mild, suicidal ideation, AK I. #Depression/suicidal ideation: Again patient has been feeling this way for the last 5 days and stopped eating at that time. Appreciate psychiatry consult -Continue to monitor patient, continue medications as ordered by psychiatry team -Ativan PRN #Mild DKA: DKA has resolved, sugars now in the high 100 range. A1c equals 8.7 -Monitor, continue subcu insulins -aspart with meals, Lantus, sliding scale -carb controlled diet -Replete electrolytes as needed #Acute kidney injury: When patient was last here in the hospital about a month ago his creatinine was 1.4. On admission 2.0, but trending down during this admission -Continue IV fluids, monitor urine output -Monitor BUN/creatinine levels, consider renal consult # DM -see above #High cholesterol: Final patient's home medications, follow-up lipid panel Exam/Review of Systems Vital Signs Vitals Vital Signs Date Temp Pulse Resp B/P (MAP) Pulse Ox O2 O2 Flow FiO2 Time Delivery Rate 06/22/18 98.1 91 18 144/73 96 Room Air 14:58 (96) Intake and Output 06/21/18 06/21/18 06/22/18 1515:00 23:00 07:00 IntakeIntake Total 1686 ml 480 ml 700 ml OutputOutput Total 350 ml 800 ml 350 ml BalanceBalance 1336 ml -320 ml 350 ml ROBINSON RAMIREZ Jun 22, 2018 18:01
--- NOTE | 2018-06-22 18:44 | NUR ---
End Of Shift Summary: Pt. A/Ox4, VSS, no acute distress. No c/o of pain this shift. IVF DC'd today. Accuchecks AC/HS; coverage given and scheduled dose adjusted. Pt. pending PT eval. SW consult completed. All due meds given. Hourly rounding done, call light within reach, fall precautions maintained. Will continue to monitor and endorse care to oncoming nurse.
[2018-06-22 19:35] VITALS: BP 145/76; PULSE 89; RESP 24
[2018-06-22] MEDS: MIRTAZAPINE 15 MG TAB PO SCH (22:14)
[2018-06-22] MEDS: ATORVASTATIN 20 MG TAB PO SCH (22:20)
[2018-06-23 01:23] VITALS: BP 143/74; PULSE 86; RESP 18
[2018-06-23] MEDS: ACCU-CHEK XX SCH (01:25)
--- NOTE | 2018-06-23 01:41 | NUR ---
Pt complains of 3/10 from pressure during urination and a mild headache. Offered tylenol PRN, but he refused. Pt wanted sugar free chocolate pudding, none in stock, offered sugar free red jello, pt refused.
[2018-06-23] MEDS: PANTOPRAZOLE 40 MG INJ IV SCH (05:21)
--- NOTE | 2018-06-23 06:16 | NUR ---
EOSS Due meds given. Pt given 1 unit of sc insulin. Bed alarm on. Pt instructed to use call light. Pt denied SI. Pt wants to know when he's going to be discharged. Pt complained of pain (mild headache and pressure during urination), but refused tylenol prn.
[2018-06-23 08:05] VITALS: BP 171/98; PULSE 88; RESP 20
[2018-06-23] MEDS: ARIPIPRAZOLE 2 MG TAB PO SCH (09:00)
[2018-06-23] MEDS: LAMOTRIGINE 25 MG TAB PO SCH ×2 (09:00→21:13)
[2018-06-23] MEDS: ASPIRIN 81 MG TAB PO SCH (09:00)
[2018-06-23] MEDS: HEPARIN 5,000 UNIT/1 ML VIAL SC SCH ×2 (09:01→21:20)
[2018-06-23] MEDS: INSULIN ASPART [NOVOLOG] 3 ML PEN SC SCH ×7 (09:02→21:00)
[2018-06-23] MEDS: INSULIN GLARGINE [LANTus] (100 UNITS/ML) SYG SC SCH (09:04)
--- NOTE | 2018-06-23 09:40 | NUR ---
CM NOTE: INSURANCE COVERAGE S/W pt at bedside regarding insurance coverage for inpatient stay. Informed pt that coverage would depend on pt insurance and no exact dollar amount could be given at this time. Pt verbalized understanding. Caesar Cruz RN CM [id number]
--- NOTE | 2018-06-23 11:19 | NUR ---
OT NOTE PT REQUIRES NEW OT ORDER PT TRANSFERRED TO ICU SINCE ORDER WAS PLACED.
[2018-06-23 12:15] VITALS: BP 153/92
--- NOTE | 2018-06-23 12:41 | PN ---
DATE: 06/23/2018 SUBJECTIVE: The patient is stable. No events overnight. No fevers, chills, nausea, vomiting. OBJECTIVE: VITAL SIGNS: Blood pressure is 171/98, pulse 88, respirations 20, temperature 98.1. HEENT: Head is normocephalic. NECK: Supple. HEART: Regular rate. LUNGS: Show diminished breath sounds at the base. ABDOMEN: Soft, nontender to palpation without rebound or guarding. EXTREMITIES: Negative for clubbing, cyanosis, no edema. DERMATOLOGIC: No rashes. MUSCULOSKELETAL: No joint effusions. NEUROLOGIC: No change in exam. MEDICATIONS: Reviewed. LABORATORY DATA: Shows a BMP within normal limits. The patient's CBC was reviewed. ASSESSMENT AND PLAN: 1. Nonoliguric acute kidney injury with previous baseline creatinine 1.1 mg/dL. Etiology of acute k idney injury is secondary to hemodynamics. The patient's renal function is improved, returned back t o baseline. Continue current treatment plans, supportive care, renally dose all meds. 2. Anemia. Monitor hemoglobin and hematocrit levels. 3. Mineral bone disorder, monitor calcium and phosphorus levels. 4. Diabetes. Continue current insulin regimen. 5. Dyslipidemia. Continue statin therapy. 6. History of depression, suicidal ideation. Continue to monitor. Follow up with psychiatry. Dictated By: MICHAEL ZHANG/REBECA Conf#: [id number] DID#: [id number]
[2018-06-23] MEDS: LORAZEPAM 4 MG/ML VIAL IV PRN (13:13)
--- NOTE | 2018-06-23 13:48 | NUR ---
PT Evaluation note: S: HPI per MD note: 68-year-old male past medical history of depression, diabetes, high cholesterol, prior non-ST elevation [place], hypertension who presents with elevated blood sugars and anxiety/suicidal ideation. Patient states he has been feeling depressed and having suicidal thoughts, but apparently did not go through with any attempts recently, but these have been going on for last 5 days. He subsequently stopped eating for the last 5 days. Is also had some nonbilious nonbloody vomiting mild, nausea symptoms and diarrhea. No fevers or chills, no upper or lower GI bleeding, no diarrhea constipation, no chest pain or shortness of breath. Apparently the patient had a suicide ideation symptoms as well 1 month ago and at that time he had taken clonidine extra doses, but again that was a month ago. When he came in today he was found with a creatinine of 2.0. He was also found with elevated blood sugars in the 300 range and slight elevation in his anion gap so signs of early DKA. An attempt was made apparently in the ER to have a psychiatrist evaluate the patient for his suicidal ideations, however this was not performed but a social media specialist has spoken to the patient today. O: PREC: mild to moderate fall risk, suicidal ideation. L knee buckling PLOF: Patient was independent with ADL and ambulatory without AD, lives alone in single story house, 1 regular followed by landing step to enter the house. No DME owned by patient. Patient's goal to get stronger and be able to function independent again. order received for PT consult, pt agreeable to participate, cleared by RN in charge to proceed. Pt c/o feeling weak, low energy level and not at baseline of function. CLOF: Patient needed min/CGA for bed mobility, min on transfers and ambulation using FWW, had 1x knee buckling on first 10 feet gait distance however able to stabilized knees throughout ambulation about another 40 feet with cues on knee stabilization. Generalized weakness affected balance, endurance and overall safety of pt. A: Patient can benefit from ARU placement for further therapy. P: cont PT and progress as able.
--- NOTE | 2018-06-23 14:15 | PN ---
Date/Time of Note Date/Time of Note DATE: 06/23/18 TIME: 14:12 Assessment/Plan VTE Prophylaxis Risk score (from Nsg)>0 risk: 5 SCD applied (from Nsg): No SCD contraindicated: low risk/ambulating Pharmacological prophylaxis: heparin Lines/Catheters IV Catheter Type (from Nrs): Saline Lock Urinary Cath still in place: No Assessment/Plan Assessment/Plan 68-year-old male diabetes, high cholesterol, depression, prior suicide ideation, hypertension who presents with DKA mild, suicidal ideation, TALA. #Depression/suicidal ideation: Again patient has been feeling this way for the last 5 days and stopped eating at that time. Appreciate psychiatry consult -Continue to monitor patient, continue medications as ordered by psychiatry team -Ativan PRN - ARU evaluation. #Mild DKA #insulin-dependent diabetes - DKA has resolved, sugars now in the high 100 range. A1c equals 8.7 - continue subcu insulins -aspart with meals, Lantus, sliding scale - carb controlled diet - Patient previously not dependent on insulin. Will need teaching. #Acute kidney injury: When patient was last here in the hospital about a month ago his creatinine was 1.4. On admission 2.0, but trending down during this admission - resolved #High cholesterol: Final patient's home medications, follow-up lipid panel Dispo: Case management for ARU evaluation. If not accepted, discharge home after diabetic teaching. Result Diagram: 06/23/18 0608 06/23/18 0608 Results 24hrs Laboratory Tests Test 06/22/18 17:20 06/22/18 20:41 06/23/18 01:19 06/23/18 06:08 Bedside Glucose 230 H 219 131 White Blood 7.8 Count Red Blood Count 4.54 L Hemoglobin 13.4 L Hematocrit 39.6 L Mean Corpuscular 87.2 Volume Mean Corpuscular 29.5 Hemoglobin Mean Corpuscular 33.8 Hemoglobin Lori nt Red Cell 12.3 Distribution Width Platelet Count 159 Mean Platelet 11.4 H Volume Immature 0.500 H Granulocytes % Neutrophils % 50.9 Lymphocytes % 35.1 Monocytes % 7.9 Eosinophils % 5.3 Basophils % 0.3 Nucleated Red 0.0 Blood Cells % Immature 0.040 H Granulocytes # Neutrophils # 4.0 Lymphocytes # 2.7 Monocytes # 0.6 Eosinophils # 0.4 Basophils # 0.0 Nucleated Red 0.0 Blood Cells # Sodium Level 141 Potassium Level 4.2 Chloride Level 108 Carbon Dioxide 25 Level Anion Gap 8 Blood Urea 14 Nitrogen Creatinine 1.12 Est Glomerular > 60 Filtrat Rate mL/min Glucose Level 161 Calcium Level 9.0 Test 06/23/18 08:59 06/23/18 12:27 Bedside Glucose 215 174 Subjective 24 Hr Interval Summary Free Text/Dictation No acute overnight events. Patient feels okay overall. Still very fatigued, says depression symptoms are still severely limiting function. Seen by PT today; able to ambulance, some episodes of knee buckling. Per PT would benefit from ARU. Exam/Review of Systems Vital Signs Vitals Vital Signs Date Temp Pulse Resp B/P (MAP) Pulse Ox O2 O2 Flow FiO2 Time Delivery Rate 06/23/18 153/92 12:15 (112) 06/23/18 98.1 88 20 99 Room Air 08:05 Intake and Output 06/22/18 06/22/18 06/23/18 1515:00 23:00 07:00 IntakeIntake Total 200 ml OutputOutput Total 300 ml 275 ml BalanceBalance 200 ml -300 ml -275 ml Exam Gen: lying in bed, No acute distress Head: Atraumatic Eyes: Normal Conjunctiva ENT: Normal External Ears, Nose and Mouth. Neck: Full range of motion. No meningismus. Resp: Clear to auscultation bilaterally Cardio: Regular rate and rhythm, no murmurs Abd: Soft, non tender, non distended. Normal bowel sounds Ext: no lower extremity edema bilaterally Medications Medications Current Medications IV Flush (NS 3 ml) 3 ml PER PROTOCOL IV ; Start 06/20/18 at 15:30 Ondansetron HCl (Zofran Inj) 4 mg Q6H PRN IV NAUSEA AND/OR VOMITING; Start 06/20/18 at 15:30 Acetaminophen (Tylenol Tab) 650 mg Q6H PRN PO PAIN LEVEL 1-3 OR FEVER Last adm inistered on 06/21/18at 20:35; Admin Dose 650 MG; Start 06/20/18 at 15:30 Acetaminophen/ Hydrocodone Bitart ([place] (5/325)) 1 tab Q6H PRN PO MODERATE PAIN LEVEL 4-6; Start 06/20/18 at 15:30 Morphine Sulfate (morphine SULFATE (PF)) 2 mg Q4H PRN IV SEVERE PAIN LEVEL 7- 10; Start 06/20/18 at 15:30 Docusate Sodium (Colace) 100 mg Q12H PRN PO CONSTIPATION; Start 06/20/18 at 15:30 Magnesium Hydroxide (Milk Of Mag) 30 ml DAILY PRN PO CONSTIPATION; Start 06/20/18 at 15:30 Heparin Sodium (Porcine) (Heparin (5000 Units/1ml)) 5,000 unit Q12 SC Last administered on 06/23/18at 09:01; Admin Dose 5,000 UNIT; Start 06/20/18 at 17:00 Lorazepam (Ativan) 1 mg Q4H PRN IV ANXIETY Last administered on 06/23/18at 13:13; Admin Dose 1 MG; Start 06/20/18 at 15:30 Albuterol/ Ipratropium (Duoneb) 3 ml Q4H RESP THERAPY PRN HHN SHORTNESS OF BREATH; Start 06/20/18 at 15:30 Hydralazine HCl (Apresoline) 10 mg Q6H PRN IV ELEVATED BLOOD PRESSURE; Start 06/20/18 at 15:30 Nitroglycerin (Nitroglycerin (Sl Tab) 0.4 Mg) 1 tab Q5M PRN SL ANGINA; Start 06/20/18 at 15:30 Aspirin (Aspirin) 81 mg DAILY PO Last administered on 06/23/18at 09:00; Admin Dose 81 MG; Start 06/20/18 at 17:00 Atorvastatin Calcium (Lipitor) 20 mg HS PO Last administered on 06/22/18at 22:20; Admin Dose 20 MG; Start 06/20/18 at 21:00 Carvedilol (Coreg) 6.25 mg BID PO Last administered on 06/23/18at 09:05; Admin Dose 6.25 MG; Start 06/20/18 at 17:00 Zolpidem Tartrate (Ambien) 5 mg HS PRN PO INSOMNIA Last administered on at 23:29; Admin Dose 5 MG; Start 06/20/18 at 23:30 Diagnostic Test (Pha) (Accu-Chek) 1 ea 02 XX Last administered on 06/23/18at 01:25; Admin Dose 1 EA; Start 06/22/18 at 02:00 Insulin Aspart (Novolog Insulin Pen) NOVOLOG *MILD* ALGORITHM WITH MEALS BEDTIME SC Last administered on 06/23/18at 12:30; Admin Dose 1 UNIT; Start 06/21/18 at 11:30 Miscellaneous Information 1 ea NOTE XX ; Start 06/21/18 at 09:00 Glucose (Glutose) 15 gm Q15M PRN PO DECREASED GLUCOSE; Start 06/21/18 at 09:00 Glucose (Glutose) 22.5 gm Q15M PRN PO DECREASED GLUCOSE; Start 06/21/18 at 09:00 Dextrose (D50w Syringe) 25 ml Q15M PRN IV DECREASED GLUCOSE; Start 06/21/18 at 09:00 Dextrose (D50w Syringe) 50 ml Q15M PRN IV DECREASED GLUCOSE; Start 06/21/18 at 09:00 Glucagon (Glucagen) 1 mg Q15M PRN IM DECREASED GLUCOSE; Start 06/21/18 at 09:00 Glucose (Glutose) 15 gm Q15M PRN BUCCAL DECREASED GLUCOSE; Start 06/21/18 at 09:00 Aripiprazole (Abilify) 2 mg DAILY PO Last administered on 06/23/18at 09:00; Admin Dose 2 MG; Start 06/21/18 at 12:00 Lamotrigine (Lamictal) 25 mg BID PO Last administered on 06/23/18at 09:00; Admin Dose 25 MG; Start 06/21/18 at 21:00 Insulin Aspart (Novolog Insulin Pen) 8 unit WITH MEALS SC Last administered on 06/23/18at 12:30; Admin Dose 8 UNIT; Start 06/22/18 at 12:00 Insulin Glargine (Lantus) 22 units DAILY@0800 SC Last administered on 06/23/18at 09:04; Admin Dose 22 UNITS; Start 06/23/18 at 08:00 Mirtazapine (Remeron) 15 mg HS PO Last administered on 06/22/18at 22:14; Admin Dose 15 MG; Start 06/22/18 at 21:00 Pantoprazole (Protonix Tab) 40 mg DAILY@06 PO ; Start 06/24/18 at 06:00 RUCHI SIDHU MD Jun 23, 2018 14:15
[2018-06-23 15:32] VITALS: BP 118/76; PULSE 99; RESP 22
--- NOTE | 2018-06-23 15:34 | NUR ---
CM NOTE: ARU EVAL Called Pedro of ARU ([id number]). Pedro to evaluate for ARU. Caesar Cruz RN CM [id number]
--- NOTE | 2018-06-23 18:36 | NUR ---
End Of Shift Summary: Pt. A/Ox4, VSS, no acute distress. No c/o of pain this shift. One episode of anxiety today; prn pain med given.Accuchecks AC/HS; coverage and scheduled given. PT eval done today. Pending ARU eval; Also pending nursing educator consult. All due meds given. Possible DC tomorrow after diabetic education done for pt. Hourly rounding done, call light within reach, fall precautions maintained. Will continue to monitor and endorse care to oncoming nurse.
[2018-06-23 19:24] VITALS: BP 141/92; PULSE 95; RESP 20
[2018-06-23] MEDS: ZOLPIDEM 5 MG TAB PO PRN (21:12)
[2018-06-23] MEDS: ATORVASTATIN 20 MG TAB PO SCH (21:12)
[2018-06-23] MEDS: MIRTAZAPINE 15 MG TAB PO SCH (21:13)
[2018-06-24 01:46] VITALS: BP 123/74; PULSE 84; RESP 20
[2018-06-24] MEDS: ACCU-CHEK XX SCH (02:00)
[2018-06-24] MEDS: PANTOPRAZOLE (EC) 40 MG TAB PO SCH (05:28)
--- NOTE | 2018-06-24 06:34 | NUR ---
EOSS: Pt. rested comfortably overnight. No acute changes. Pt. appeared to be in good spirits. All due meds give. Pt. blood glucose monitored overnight. No insulin coverage needed. Pt. denied having pain. Bed alarm on at all times, pt. free from injury. Will endorse care to oncoming nurse
[2018-06-24 08:30] VITALS: BP 129/78; PULSE 82; RESP 18
[2018-06-24] MEDS: INSULIN GLARGINE [LANTus] (100 UNITS/ML) SYG SC SCH (09:03)
[2018-06-24] MEDS: INSULIN ASPART [NOVOLOG] 3 ML PEN SC SCH ×7 (09:04→20:17)
[2018-06-24] MEDS: HEPARIN 5,000 UNIT/1 ML VIAL SC SCH ×2 (09:05→20:21)
[2018-06-24] MEDS: ASPIRIN 81 MG TAB PO SCH (09:14)
[2018-06-24] MEDS: LAMOTRIGINE 25 MG TAB PO SCH ×2 (09:17→20:17)
[2018-06-24] MEDS: ARIPIPRAZOLE 2 MG TAB PO SCH (09:19)
--- NOTE | 2018-06-24 11:45 | PN ---
DATE: 06/24/2018 SUBJECTIVE: The patient is stable. No events overnight. No fevers, chills, nausea, vomiting. OBJECTIVE: VITAL SIGNS: Blood pressure is 123/74, respirations 20, pulse 84, temperature 97.4. HEENT: Head is normocephalic. NECK: Supple. HEART: Regular rate. LUNGS: Show diminished breath sounds at the base. ABDOMEN: Soft, nontender to palpation without rebound or guarding. EXTREMITIES: Negative for clubbing, cyanosis, no edema. DERMATOLOGIC: No rashes. MUSCULOSKELETAL: No joint effusion. NEUROLOGIC: No change in exam. MEDICATIONS: Reviewed. LABORATORY DATA: Shows a white count 7.9, hemoglobin 13.3, platelet count is 171. BMP within normal limits. ASSESSMENT AND PLAN: 1. Nonoliguric acute kidney injury. Previous baseline creatinine of 1.1 mg/dL. Etiology of TALA is secondary to hemodynamics. Renal function has improved, currently at baseline. Continue current elizabeth atment plan, supportive care, renally dose all meds. 2. Anemia. Monitor H and H levels. 3. Mineral bone disorder. Monitor calcium and phosphorus levels. 4. Diabetes. Continue current insulin regimen. 5. Dyslipidemia. Continue statin therapy. 6. History of depression, suicidal ideation. Continue to monitor. Follow up with psychiatry. Dictated By: MICHAEL ZHANG/REBECA Conf#: [id number] DID#: [id number] CC: ROBINSON RAMIREZ;*EndCC*
--- NOTE | 2018-06-24 12:06 | PN ---
Date/Time of Note Date/Time of Note DATE: 06/24/18 TIME: 12:01 Assessment/Plan VTE Prophylaxis Risk score (from Nsg)>0 risk: 3 SCD applied (from Nsg): Yes Pharmacological prophylaxis: heparin Lines/Catheters IV Catheter Type (from Nrsg): Saline Lock Urinary Cath still in place: No Assessment/Plan Assessment/Plan 68-year-old male diabetes, high cholesterol, depression, prior suicide ideation, hypertension who presents with DKA mild, suicidal ideation, TALA. #Depression/suicidal ideation: Again patient has been feeling this way for the last 5 days and stopped eating at that time. Appreciate psychiatry consult -Continue to monitor patient, continue medications as ordered by psychiatry team -Ativan PRN - ARU evaluation. #Mild DKA #insulin-dependent diabetes - DKA has resolved, sugars now in the high 100 range. A1c equals 8.7 - continue subcu insulins -aspart with meals, Lantus, sliding scale - carb controlled diet - Patient previously not dependent on insulin. Will need teaching. #Acute kidney injury: When patient was last here in the hospital about a month ago his creatinine was 1.4. On admission 2.0, but trending down during this admission - now resolved #High cholesterol: Cont atorvastatin 20. Dispo: Case management for ARU evaluation. Patient lives alone and feels unable to care for self. May need SNF eval. Result Diagram: 06/24/1819 06/24/18 0619 Results 24hrs Laboratory Tests Test 06/23/18 12:27 06/23/18 16:22 06/23/18 17:13 06/23/18 21:12 Bedside Glucose 174 184 177 Acetone Level NEGATIVE (Chemistry) Test 06/24/18 06:19 06/24/18 09:02 White Blood 7.9 Count Red Blood Count 4.46 L Hemoglobin 13.3 L Hematocrit 39.1 L Mean Corpuscular 87.7 Volume Mean Corpuscular 29.8 Hemoglobin Mean Corpuscular 34.0 Hemoglobin Lori nt Red Cell 12.5 Distribution Width Platelet Count 171 Mean Platelet 11.2 H Volume Immature 0.600 H Granulocytes % Neutrophils % 52.2 Lymphocytes % 33.5 Monocytes % 7.9 Eosinophils % 5.4 Basophils % 0.4 Nucleated Red 0.0 Blood Cells % Immature 0.050 H Granulocytes # Neutrophils # 4.1 Lymphocytes # 2.6 Monocytes # 0.6 Eosinophils # 0.4 Basophils # 0.0 Nucleated Red 0.0 Blood Cells # Sodium Level 141 Potassium Level 4.1 Chloride Level 107 Carbon Dioxide 22 Level Anion Gap 12 Blood Urea 15 Nitrogen Creatinine 1.15 Est Glomerular > 60 Filtrat Rate mL/min Glucose Level 169 Calcium Level 9.2 Bedside Glucose 159 Subjective 24 Hr Interval Summary Free Text/Dictation No acute overnight events. This morning patient developed a low-frequency tremor of his arm after waking up and walking. It was suppressible while eating breakfast. It seems to be present while I'm in the room interacting with the patient but quickly resolves after I step out of the room. The patient says he feels unready to go home. He does not feel ready to treat himself with insulin, saying "I don't even know where I'd start". Exam/Review of Systems Vital Signs Vitals Vital Signs Date Temp Pulse Resp B/P (MAP) Pulse Ox O2 O2 Flow FiO2 Time Delivery Rate 06/24/18 98.1 82 18 129/78 97 Room Air 08:30 (95) Intake and Output 06/23/18 06/23/18 06/24/18 1515:00 23:00 07:00 IntakeIntake Total 480 ml OutputOutput Total 600 ml BalanceBalance -120 ml Exam Gen: lying in bed, No acute distress Head: Atraumatic Eyes: Normal Conjunctiva ENT: Normal External Ears, Nose and Mouth. Neck: Full range of motion. No meningismus. Resp: Clear to auscultation bilaterally Cardio: Regular rate and rhythm, no murmurs Abd: Soft, non tender, non distended. Normal bowel sounds Ext: no lower extremity edema bilaterally Medications Medications Current Medications IV Flush (NS 3 ml) 3 ml PER PROTOCOL IV ; Start 06/20/18 at 15:30 Ondansetron HCl (Zofran Inj) 4 mg Q6H PRN IV NAUSEA AND/OR VOMITING; Start 06/20/18 at 15:30 Acetaminophen (Tylenol Tab) 650 mg Q6H PRN PO PAIN LEVEL 1-3 OR FEVER Last administered on 06/21/18at 20:35; Admin Dose 650 MG; Start 06/20/18 at 15:30 Acetaminophen/ Hydrocodone Bitart ([place] (5/325)) 1 tab Q6H PRN PO MODERATE PAIN LEVEL 4-6; Start 06/20/18 at 15:30 Morphine Sulfate (morphine SULFATE (PF)) 2 mg Q4H PRN IV SEVERE PAIN LEVEL 7- 10; Start 06/20/18 at 15:30 Docusate Sodium (Colace) 100 mg Q12H PRN PO CONSTIPATION; Start 06/20/18 at 15:30 Magnesium Hydroxide (Milk Of Mag) 30 ml DAILY PRN PO CONSTIPATION; Start 06/20/18 at 15:30 Heparin Sodium (Porcine) (Heparin (5000 Units/1ml)) 5,000 unit Q12 SC Last administered on 06/24/18 09:05; Admin Dose 5,000 UNIT; Start 06/20/18 at 17:00 Lorazepam (Ativan) 1 mg Q4H PRN IV ANXIETY Last administered on 06/23/18at 13:13; Admin Dose 1 MG; Start 06/20/18 at 15:30 Albuterol/ Ipratropium (Duoneb) 3 ml Q4H RESP THERAPY PRN HHN SHORTNESS OF BREATH; Start 06/20/18 at 15:30 Hydralazine HCl (Apresoline) 10 mg Q6H PRN IV ELEVATED BLOOD PRESSURE; Start 06/20/18 at 15:30 Nitroglycerin (Nitroglycerin (Sl Tab) 0.4 Mg) 1 tab Q5M PRN SL ANGINA; Start 06/20/18 at 15:30 Aspirin (Aspirin) 81 mg DAILY PO Last administered on 06/24/18at 09:14; Admin Dose 81 MG; Start 06/20/18 at 17:00 Atorvastatin Calcium (Lipitor) 20 mg HS PO Last administered on 06/23/18 21:12; Admin Dose 20 MG; Start 06/20/18 at 21:00 Carvedilol (Coreg) 6.25 mg BID PO Last administered on 06/24/18 09:15; Admin Dose 6.25 MG; Start 06/20/18 at 17:00 Zolpidem Tartrate (Ambien) 5 mg HS PRN PO INSOMNIA Last administered on 06/23/18 21:12; Admin Dose 5 MG; Start 06/20/18 at 23:30 Diagnostic Test (Pha) (Accu-Chek) 1 ea 02 XX Last administered on 06/23/18at 01:25; Admin Dose 1 EA; Start 06/22/18 at 02:00 Insulin Aspart (Novolog Insulin Pen) NOVOLOG *MILD* ALGORITHM WITH MEALS BEDTIME SC Last administered on 06/24/18at 09:04; Admin Dose 1 UNIT; Start 06/21/18 at 11:30 Miscellaneous Information 1 ea NOTE XX ; Start 06/21/18 at 09:00 Glucose (Glutose) 15 gm Q15M PRN PO DECREASED GLUCOSE; Start 06/21/18 at 09:00 Glucose (Glutose) 22.5 gm Q15M PRN PO DECREASED GLUCOSE; Start 06/21/18 at 09:00 Dextrose (D50w Syringe) 25 ml Q15M PRN IV DECREASED GLUCOSE; Start 06/21/18 at 09:00 Dextrose (D50w Syringe) 50 ml Q15M PRN IV DECREASED GLUCOSE; Start 06/21/18 at 09:00 Glucagon (Glucagen) 1 mg Q15M PRN IM DECREASED GLUCOSE; Start 06/21/18 at 09:00 Glucose (Glutose) 15 gm Q15M PRN BUCCAL DECREASED GLUCOSE; Start 06/21/18 at 09:00 Aripiprazole (Abilify) 2 mg DAILY PO Last administered on 06/24/18at 09:19; Admin Dose 2 MG; Start 06/21/18 at 12:00 Lamotrigine (Lamictal) 25 mg BID PO Last administered on 06/24/18at 09:17; Admin Dose 25 MG; Start 06/21/18 at 21:00 Insulin Aspart (Novolog Insulin Pen) 8 unit WITH MEALS SC Last administered on 06/24/18at 09:05; Admin Dose 8 UNIT; Start 06/22/18 at 12:00 Insulin Glargine (Lantus) 22 units DAILY@0800 SC Last administered on 06/24/18 at 09:03; Admin Dose 22 UNITS; Start 06/23/18 at 08:00 Mirtazapine (Remeron) 15 mg HS PO Last administered on 06/23/18at 21:13; Admin Dose 15 MG; Start 06/22/18 at 21:00 Pantoprazole (Protonix Tab) 40 mg DAILY@06 PO Last administered on 06/24/18at 05:28; Admin Dose 40 MG; Start 06/24/18 at 06:00 RUCHI SIDHU MD Jun 24, 2018 12:06
[2018-06-24 14:00] VITALS: BP 124/77; PULSE 84; RESP 18
--- NOTE | 2018-06-24 18:12 | NUR ---
PATIENT SAFETY WAS MAINTAINED BY CHECKING BED ALARM IS ON AT ALL TIMES, CONDUCTING HOURLY ROUNDING. PATIENT HAD NO COMPLAINS OF PAIN. PATIENT COMPLAINED OF LEFT ARM SHAKINESS, DR. SIDHU MADE AWARE,NO NEW ORDERS GIVEN. PATIENT ASSISTED TO THE SHOWER, PATIENT TOLERATED WELL. WILL ENDORSE PATIENT CARE TO ONCOMING NURSE.
[2018-06-24 19:15] VITALS: BP 135/83; PULSE 85; RESP 18
[2018-06-24] MEDS: ATORVASTATIN 20 MG TAB PO SCH (20:17)
[2018-06-24] MEDS: MIRTAZAPINE 15 MG TAB PO SCH (20:17)
[2018-06-24] MEDS: ACETAMINOPHEN 325 MG TAB PO PRN (20:18)
[2018-06-25] MEDS: ACCU-CHEK XX SCH (01:30)
[2018-06-25 02:17] VITALS: BP 117/73; PULSE 82; RESP 16
--- NOTE | 2018-06-25 04:56 | NUR ---
SHIFT NOTES: PT STABLE THIS SHIFT. COMPLAINED OF HEADACHE EARLY ON THE SHIFT, WAS MEDICATED WITH TYLENOL. PT VERBALIZED RELIEF ON RE-ASSESSMENT. OTHER DUE MEDS GIVEN AND TOLERATED WELL. NEEDS ATTENDED. FALL PRECAUTION MAINTAINED. CALL LIGHT PLACED WITHIN REACH. WILL ENDORSE ACCORDINGLY TO ONCOMING NURSE.
[2018-06-25] MEDS: PANTOPRAZOLE (EC) 40 MG TAB PO SCH (05:29)
[2018-06-25 08:07] VITALS: BP 115/59; PULSE 84; RESP 16
[2018-06-25] MEDS: LAMOTRIGINE 25 MG TAB PO SCH ×2 (08:14→21:19)
[2018-06-25] MEDS: ARIPIPRAZOLE 2 MG TAB PO SCH (08:15)
[2018-06-25] MEDS: ASPIRIN 81 MG TAB PO SCH (08:15)
[2018-06-25] MEDS: HEPARIN 5,000 UNIT/1 ML VIAL SC SCH ×2 (08:17→21:23)
[2018-06-25] MEDS: INSULIN ASPART [NOVOLOG] 3 ML PEN SC SCH ×7 (08:28→21:23)
[2018-06-25] MEDS: INSULIN GLARGINE [LANTus] (100 UNITS/ML) SYG SC SCH (08:29)
--- NOTE | 2018-06-25 10:58 | PN ---
DATE: 06/25/2018 SUBJECTIVE: The patient is stable, no events overnight. No fevers, chills, nausea, vomiting. OBJECTIVE: VITAL SIGNS: Blood pressure is 117/73, respirations 16, pulse 98.2. HEENT: Head is normocephalic. NECK: Supple. HEART: Regular rate. LUNGS: Show diminished breath sounds at the base. ABDOMEN: Soft, nontender to palpation without rebound or guarding. EXTREMITIES: Negative for clubbing, cyanosis, no edema. DERMATOLOGIC: No rashes. MUSCULOSKELETAL: No joint effusions. NEUROLOGIC: No change in exam. MEDICATIONS: Patient medications have been reviewed. LABORATORY DATA: Shows sodium 140, potassium 4.0, BUN 18, creatinine 1.27. White count 7.6, hemoglo bin 12.9. ASSESSMENT AND PLAN: 1. Nonoliguric acute kidney injury with previous baseline creatinine around 1.1 to 1.2 mg/dL. Etiol ogy of acute kidney injury is secondary to hemodynamics. The patient's creatinine last 24 hours incr eased to 1.27 mg/dL. At this point, will continue to monitor, continue supportive care, renally dose all meds. Anticipate starting low dose CHRISTINE inhibitor if renal function remains stable. 2. Anemia. Continue to monitor hemoglobin and hematocrit levels. 3. Mineral bone disorder, monitor calcium and phosphorus levels. 4. Diabetes. Continue current insulin regimen. 5. Dyslipidemia. Continue statin therapy. 6. History of depression. Current suicide ideation. Continue current treatment plan. Dictated By: MICHAEL ZHANG/REBECA Conf#: [id number] DID#: [id number] CC: ROBINSON RAMIREZ;*EndCC*
--- NOTE | 2018-06-25 11:29 | NUR ---
SHAW DENIED PT, MD AWARE.
--- NOTE | 2018-06-25 11:49 | NUR ---
DR SIDHU HERE TO SEE PT, UPDATED ON PT'S STATUS. Addendum: 06/25/18 at 1158 by CRISTIANO CALHOUN RN PLAN FOR SNF, CM AWARE.
--- NOTE | 2018-06-25 12:00 | NUR ---
PT NOTE [facility] Patient: Hood Alfred : 1950 Age/Sex: 68/M Unit#: [id number] Room/Bed: 5536 User: Stacy Griffin PTA Date: 06/25/18 12:00 Type: PT Technical Record Therapy day number 2 Subjective Denies pain Pain Scale NUMERIC Pain Intensity 0 (0-10) Patient Stated Goal for Pain Relief 0 (0-10) Pain Level Comment denied pain Exercise Assessment Label Bilat Lower Extremity Exercise Type Active ROM Additional Exercise Comments APs, LAJuani, seated [facility] Training Start Time 11:31 Supine to Sit Contact Guard Assist Transfer Sit to Stand Ability Contact Guard Assist Bed Mobility Sit to Supine Minimum Assist Bed Transfer Ability Minimum Assist Chair Transfer Ability Minimum Assist Transfer Training End Time 11:41 Total Transfer Training Time 10 min (8-127) Gait Training Start Time 11:41 Gait Assist Levels Minimum Assist Assistive Devices Front Wheel Walker Ambulation Distance 60 feet Additional Gait Comments steady, reciprocal pattern, low foot clearance, forward posture Gait Training End Time 12:00 Total Gait Training Treatment Time 19 min (8-127) Static Sitting Balance Good Dynamic Sitting Balance Fair plus Standing Static Balance Fair plus Dynamic Standing Balance Fair Additional Balance Assessments Comments FWW Safety Judgement Fair Activity Tolerance Fair Post Treatment Pain Intensity 0 0-10 Quality Indicators Light headedness Variance Documentation See note Total Treament Time 29 min (8-127) Total Minutes 29 Total Units 2 PT Technical Record Comment S: ALONZO Mcelroy cleared pt for PT. Pt denied pain and agreeable to tx O: Received pt R sidelying. See above for assist levels. Gait training x 60' w/ chair in tow and presented with steady, reciprocal pattern, low foot clearance, and forward posture. VC for posture awareness and safety during ambulation. Pt c/o lightheadedness and required 1 standing rest period. Returned pt back to room/bed. Used bed rails to scoot to HOB. Positioned pt to comfort in semifowler. Call light/phone within reach. Bed alarm on. Needs met A: Fair tolerance to tx. Limited due to light headedness and fatigue. CGA/[place] throughout tx P: Continue w/ POC and progress as tolerated
[2018-06-25 12:11] VITALS: BP 137/71; PULSE 84
[2018-06-25] MEDS: LORAZEPAM 4 MG/ML VIAL IV PRN (12:13)
--- NOTE | 2018-06-25 12:16 | CONS ---
Date/Time of Note Date/Time of Note DATE: 06/25/18 TIME: 12:12 Assessment/Plan Assessment/Plan Assessment/Plan Uncontrolled diabetes/DKA Acute kidney injury, improved Depression Hypertension Preserved ejection fraction -Patient presented with multiple issues likely secondary to uncontrolled diabetes. He does admit to not eating and worsening depression. Denies any symptoms of chest pain or shortness of breath. Blood pressure trend overall remained stable. Continue beta-param as heart rate and blood pressure permits, aspirin therapy if no contraindication, statin therapy if no contraindication. Result Diagram: 06/25/18 0557 06/25/18 0557 Results 24hrs Laboratory Tests Test 06/24/18 12:43 06/24/18 17:11 06/24/18 20:16 06/25/18 05:57 Bedside Glucose 212 197 180 White Blood 7.6 Count Red Blood Count 4.35 L Hemoglobin 12.9 L Hematocrit 37.6 L Mean Corpuscular 86.4 Volume Mean Corpuscular 29.7 Hemoglobin Mean Corpuscular 34.3 Hemoglobin Lori nt Red Cell 12.8 Distribution Width Platelet Count 171 Mean Platelet 11.8 H Volume Immature 0.700 H Granulocytes % Neutrophils % 50.7 Lymphocytes % 35.4 Monocytes % 9.0 Eosinophils % 3.8 Basophils % 0.4 Nucleated Red 0.0 Blood Cells % Immature 0.050 H Granulocytes # Neutrophils # 3.9 Lymphocytes # 2.7 Monocytes # 0.7 Eosinophils # 0.3 Basophils # 0.0 Nucleated Red 0.0 Blood Cells # Sodium Level 140 Potassium Level 4.0 Chloride Level 105 Carbon Dioxide 23 Level Anion Gap 12 Blood Urea 18 Nitrogen Creatinine 1.27 H Est Glomerular 56 L Filtrat Rate mL/min Glucose Level 172 Calcium Level 9.0 Test 06/25/18 08:13 Bedside Glucose 165 Consultation Date/Type/Reason Admit Date/Time Jun 20, 2018 at 14:17 Type of Consult cv Reason for Consultation Cardiology evaluation Hx of Present Illness This is a 68-year-old male well-known to me from previous admission as well as our office patient who presents with hypovolemia, acute kidney injury, uncontrolled diabetes and worsening depression. Patient was treated medically with improvement in his multiple medical conditions. Portion patient still with severe depression. He was having intermittent shortness of breath initially but currently denies any shortness of breath. He denies exertional chest pain. He does complain of fatigue and unable to care for himself. Denies any palpitations or dizziness. 12 point review of systems was performed with all pertinent positives and negatives mentioned above and all else is negative Past Medical History Psychiatric disorder Medical History: diabetes, hypertension Medications Current Medications IV Flush (NS 3 ml) 3 ml PER PROTOCOL IV ; Start 06/20/18 at 15:30 Ondansetron HCl (Zofran Inj) 4 mg Q6H PRN IV NAUSEA AND/OR VOMITING; Start 06/20/18 at 15:30 Acetaminophen (Tylenol Tab) 650 mg Q6H PRN PO PAIN LEVEL 1-3 OR FEVER Last administered on 06/24/18at 20:18; Admin Dose 650 MG; Start 06/20/18 at 15:30 Acetaminophen/ Hydrocodone Bitart (Randolph (5/325)) 1 tab Q6H PRN PO MODERATE PAIN LEVEL 4-6; Start 06/20/18 at 15:30 Morphine Sulfate (morphine SULFATE (PF)) 2 mg Q4H PRN IV SEVERE PAIN LEVEL 7- 10; Start 06/20/18 at 15:30 Docusate Sodium (Colace) 100 mg Q12H PRN PO CONSTIPATION; Start 06/20/18 at 15:30 Magnesium Hydroxide (Milk Of Mag) 30 ml DAILY PRN PO CONSTIPATION; Start 06/20/18 at 15:30 Heparin Sodium (Porcine) (Heparin (5000 Units/1ml)) 5,000 unit Q12 SC Last administered on 06/25/18at 08:17; Admin Dose 5,000 UNIT; Start 06/20/18 at 17:00 Lorazepam (Ativan) 1 mg Q4H PRN IV ANXIETY Last administered on 06/23/18at 13:13; Admin Dose 1 MG; Start 06/20/18 at 15:30 Albuterol/ Ipratropium (Duoneb) 3 ml Q4H RESP THERAPY PRN HHN SHORTNESS OF BREATH; Start 06/20/18 at 15:30 Hydralazine HCl (Apresoline) 10 mg Q6H PRN IV ELEVATED BLOOD PRESSURE; Start 06/20/18 at 15:30 Nitroglycerin (Nitroglycerin (Sl Tab) 0.4 Mg) 1 tab Q5M PRN SL ANGINA; Start 06/20/18 at 15:30 Aspirin (Aspirin) 81 mg DAILY PO Last administered on 06/25/18 08:15; Admin Dose 81 MG; Start 06/20/18 at 17:00 Atorvastatin Calcium (Lipitor) 20 mg HS PO Last administered on 06/24/18at 20:17; Admin Dose 20 MG; Start 06/20/18 at 21:00 Carvedilol (Coreg) 6.25 mg BID PO Last administered on 06/25/18 08:15; Admin Dose 6.25 MG; Start 06/20/18 at 17:00 Zolpidem Tartrate (Ambien) 5 mg HS PRN PO INSOMNIA Last administered on 06/23/18 21:12; Admin Dose 5 MG; Start 06/20/18 at 23:30 Diagnostic Test (Pha) (Accu-Chek) 1 ea 02 XX Last administered on 06/23/18at 01:25; Admin Dose 1 EA; Start 06/22/18 at 02:00 Insulin Aspart (Novolog Insulin Pen) NOVOLOG *MILD* ALGORITHM WITH MEALS BEDTIME SC Last administered on 06/25/18at 08:28; Admin Dose 1 UNIT; Start 06/21/18 at 11:30 Miscellaneous Information 1 ea NOTE XX ; Start 06/21/18 at 09:00 Glucose (Glutose) 15 gm Q15M PRN PO DECREASED GLUCOSE; Start 06/21/18 at 09:00 Glucose (Glutose) 22.5 gm Q15M PRN PO DECREASED GLUCOSE; Start 06/21/18 at 09:00 Dextrose (D50w Syringe) 25 ml Q15M PRN IV DECREASED GLUCOSE; Start 06/21/18 at 09:00 Dextrose (D50w Syringe) 50 ml Q15M PRN IV DECREASED GLUCOSE; Start 06/21/18 at 09:00 Glucagon (Glucagen) 1 mg Q15M PRN IM DECREASED GLUCOSE; Start 06/21/18 at 09:00 Glucose (Glutose) 15 gm Q15M PRN BUCCAL DECREASED GLUCOSE; Start 06/21/18 at 09:00 Aripiprazole (Abilify) 2 mg DAILY PO Last administered on 06/25/18at 08:15; Admin Dose 2 MG; Start 06/21/18 at 12:00 Lamotrigine (Lamictal) 25 mg BID PO Last administered on 06/25/18at 08:14; Admin Dose 25 MG; Start 06/21/18 at 21:00 Insulin Aspart (Novolog Insulin Pen) 8 unit WITH MEALS SC Last administered on 06/25/18at 08:28; Admin Dose 8 UNIT; Start 06/22/18 at 12:00 Insulin Glargine (Lantus) 22 units DAILY@0800 SC Last administered on 06/25/18at 08:29; Admin Dose 22 UNITS; Start 06/23/18 at 08:00 Mirtazapine (Remeron) 15 mg HS PO Last administered on 06/24/18at 20:17; Admin Dose 15 MG; Start 06/22/18 at 21:00 Pantoprazole (Protonix Tab) 40 mg DAILY@06 PO Last administered on 06/25/18at 05:29; Admin Dose 40 MG; Start 06/24/18 at 06:00 Allergies: Coded Allergies: Penicillins (Verified Allergy, Unknown, 05/27/18) Past Surgical History Past Surgical Hx: no surgical history Family History Significant Family History: no pertinent family hx Social History Smoking Status: Never smoker Drug Use: none Exam/Review of Systems Vital Signs Vitals Vital Signs Date Temp Pulse Resp B/P (MAP) Pulse Ox O2 O2 Flow FiO2 Time Delivery Rate 06/25/18 97.9 84 16 115/59 95 Room Air 08:07 (77) Intake and Output 06/24/18 06/24/18 06/25/18 1515:00 23:00 07:00 IntakeIntake Total 720 ml 450 ml OutputOutput Total 600 ml 650 ml 400 ml BalanceBalance -600 ml 70 ml 50 ml Exam Appears depressed, no apparent distress Constitutional: alert, oriented Head: normocephalic Respiratory: other (Coarse breath sounds bilaterally, no wheezing) Cardiovascular: regular rate and rhythm, other (S1-S2 heard) Gastrointestinal: soft, non-tender, bowel sounds Extremities: other (Trace lower extremity edema) Medications Medications Current Medications IV Flush (NS 3 ml) 3 ml PER PROTOCOL IV ; Start 06/20/18 at 15:30 Ondansetron HCl (Zofran Inj) 4 mg Q6H PRN IV NAUSEA AND/OR VOMITING; Start 06/20/18 at 15:30 Acetaminophen (Tylenol Tab) 650 mg Q6H PRN PO PAIN LEVEL 1-3 OR FEVER Last administered on 06/24/18at 20:18; Admin Dose 650 MG; Start 06/20/18 at 15:30 Acetaminophen/ Hydrocodone Bitart (Randolph (5/325)) 1 tab Q6H PRN PO MODERATE PAIN LEVEL 4-6; Start 06/20/18 at 15:30 Morphine Sulfate (morphine SULFATE (PF)) 2 mg Q4H PRN IV SEVERE PAIN LEVEL 7- 10; Start 06/20/18 at 15:30 Docusate Sodium (Colace) 100 mg Q12H PRN PO CONSTIPATION; Start 06/20/18 at 15:30 Magnesium Hydroxide (Milk Of Mag) 30 ml DAILY PRN PO CONSTIPATION; Start 06/20/18 at 15:30 Heparin Sodium (Porcine) (Heparin (5000 Units/1ml)) 5,000 unit Q12 SC Last administered on 06/25/18at 08:17; Admin Dose 5,000 UNIT; Start 06/20/18 at 17:00 Lorazepam (Ativan) 1 mg Q4H PRN IV ANXIETY Last administered on 06/23/18at 13:13; Admin Dose 1 MG; Start 06/20/18 at 15:30 Albuterol/ Ipratropium (Duoneb) 3 ml Q4H RESP THERAPY PRN HHN SHORTNESS OF BREATH; Start 06/20/18 at 15:30 Hydralazine HCl (Apresoline) 10 mg Q6H PRN IV ELEVATED BLOOD PRESSURE; Start 06/20/18 at 15:30 Nitroglycerin (Nitroglycerin (Sl Tab) 0.4 Mg) 1 tab Q5M PRN SL ANGINA; Start 06/20/18 at 15:30 Aspirin (Aspirin) 81 mg DAILY PO Last administered on 06/25/18at 08:15; Admin Dose 81 MG; Start 06/20/18 at 17:00 Atorvastatin Calcium (Lipitor) 20 mg HS PO Last administered on 06/24/18at 20:17; Admin Dose 20 MG; Start 06/20/18 at 21:00 Carvedilol (Coreg) 6.25 mg BID PO Last administered on 06/25/18at 08:15; Admin Dose 6.25 MG; Start 06/20/18 at 17:00 Zolpidem Tartrate (Ambien) 5 mg HS PRN PO INSOMNIA Last administered on 06/23/18at 21:12; Admin Dose 5 MG; Start 06/20/18 at 23:30 Diagnostic Test (Pha) (Accu-Chek) 1 ea 02 XX Last administered on 06/23/18at 01:25; Admin Dose 1 EA; Start 06/22/18 at 02:00 Insulin Aspart (Novolog Insulin Pen) NOVOLOG *MILD* ALGORITHM WITH MEALS BEDTIME SC Last administered on 06/25/18at 08:28; Admin Dose 1 UNIT; Start 06/21/18 at 11:30 Miscellaneous Information 1 ea NOTE XX ; Start 06/21/18 at 09:00 Glucose (Glutose) 15 gm Q15M PRN PO DECREASED GLUCOSE; Start 06/21/18 at 09:00 Glucose (Glutose) 22.5 gm Q15M PRN PO DECREASED GLUCOSE; Start 06/21/18 at 09:00 Dextrose (D50w Syringe) 25 ml Q15M PRN IV DECREASED GLUCOSE; Start 06/21/18 at 09:00 Dextrose (D50w Syringe) 50 ml Q15M PRN IV DECREASED GLUCOSE; Start 06/21/18 at 09:00 Glucagon (Glucagen) 1 mg Q15M PRN IM DECREASED GLUCOSE; Start 06/21/18 at 09:00 Glucose (Glutose) 15 gm Q15M PRN BUCCAL DECREASED GLUCOSE; Start 06/21/18 at 09:00 Aripiprazole (Abilify) 2 mg DAILY PO Last administered on 06/25/18at 08:15; Admin Dose 2 MG; Start 06/21/18 at 12:00 Lamotrigine (Lamictal) 25 mg BID PO Last administered on 06/25/18at 08:14; Admin Dose 25 MG; Start 06/21/18 at 21:00 Insulin Aspart (Novolog Insulin Pen) 8 unit WITH MEALS SC Last administered on 06/25/18at 08:28; Admin Dose 8 UNIT; Start 06/22/18 at 12:00 Insulin Glargine (Lantus) 22 units DAILY@0800 SC Last administered on 06/25/18at 08:29; Admin Dose 22 UNITS; Start 06/23/18 at 08:00 Mirtazapine (Remeron) 15 mg HS PO Last administered on 06/24/18at 20:17; Admin Dose 15 MG; Start 06/22/18 at 21:00 Pantoprazole (Protonix Tab) 40 mg DAILY@06 PO Last administered on 06/25/18at 05:29; Admin Dose 40 MG; Start 06/24/18 at 06:00 Imaging Imaging ECG done on the demonstrates sinus tachycardia at 113 bpm, QRS 124 ms, no significant ischemic STT wave abnormalities Obi Haji DO Jun 25, 2018 12:16
--- NOTE | 2018-06-25 13:09 | NUR ---
PT TAUGHT REGARDING BLOOD SUGAR CHECKS AT HOME, PT ASKED QUESTIONS, ALL QUESTIONS ANSWERED. WILL CONTINUE TO REINFORCE TEACHING.
[2018-06-25] MEDS ORDERED: ARIP2TAB17 PO (13:54)
[2018-06-25] MEDS ORDERED: LAMO25TA PO (13:54)
[2018-06-25] MEDS ORDERED: Insulin Glargine SC (13:54)
[2018-06-25] MEDS ORDERED: NOVO3I SC (13:54)
[2018-06-25 14:17] VITALS: BP 116/59; PULSE 87; RESP 18
--- NOTE | 2018-06-25 15:25 | NUR ---
CM NOTE: SNF PLACEMENT Order for SNF placement received. S/W pt at bedside who states he is agreeable to SNF placement. Per pt, he would like placement in the [facility], however had no other preference. Inquiry sent to [facility], [facility] and [facility]. Confirmation received. Caesar Cruz RN CM [id number]
[2018-06-25] MEDS ORDERED: DIPHENHYDRAMINE 50 MG CAP PO PRN (17:30)
--- NOTE | 2018-06-25 17:31 | PN ---
Date/Time of Note Date/Time of Note DATE: 06/25/18 TIME: 17:27 Assessment/Plan VTE Prophylaxis Risk score (from Ns)>0 risk: 3 SCD applied (from Ns): No SCD contraindicated: other (not contraindicated) Pharmacological prophylaxis: heparin Lines/Catheters IV [facility]ter [facility]from [facility] [place] [facility] Urinary Cath still in place: No Assessment/Plan Assessment/Plan 68-year-old male diabetes, high cholesterol, depression, prior suicide ideation, hypertension who presents with DKA mild, suicidal ideation, TALA. #Depression/suicidal ideation: Again patient has been feeling this way for the last 5 days and stopped eating at that time. Appreciate psychiatry consult -Continue to monitor patient, continue medications as ordered by psychiatry team -Ativan PRN - ARU evaluation. #Mild DKA #insulin-dependent diabetes - DKA has resolved, sugars now in the high 100 range. A1c equals 8.7 - continue subcu insulins -aspart with meals, Lantus, sliding scale - carb controlled diet - Patient previously not dependent on insulin. Will need teaching. #Acute kidney injury: When patient was last here in the hospital about a month ago his creatinine was 1.4. On admission 2.0, but trending down during this admission - now resolved #High cholesterol: Cont atorvastatin 20. Dispo: Plan to discharge to SNF; currently with severe depression not able to care for self at home. Result Diagram: 06/25/18 0557 06/25/18 0557 Results 24hrs Laboratory Tests Test 06/24/18 20:16 06/25/18 05:57 06/25/18 08:13 06/25/18 12:25 Bedside Glucose 180 165 204 White Blood 7.6 Count Red Blood Count 4.35 L Hemoglobin 12.9 L Hematocrit 37.6 L Mean Corpuscular 86.4 Volume Mean Corpuscular 29.7 Hemoglobin Mean Corpuscular 34.3 Hemoglobin Lori nt Red Cell 12.8 Distribution Width Platelet Count 171 Mean Platelet 11.8 H Volume Immature 0.700 H Granulocytes % Neutrophils % 50.7 Lymphocytes % 35.4 Monocytes % 9.0 Eosinophils % 3.8 Basophils % 0.4 Nucleated Red 0.0 Blood Cells % Immature 0.050 H Granulocytes # Neutrophils # 3.9 Lymphocytes # 2.7 Monocytes # 0.7 Eosinophils # 0.3 Basophils # 0.0 Nucleated Red 0.0 Blood Cells # Sodium Level 140 Potassium Level 4.0 Chloride Level 105 Carbon Dioxide 23 Level Anion Gap 12 Blood Urea 18 Nitrogen Creatinine 1.27 H Est Glomerular 56 L Filtrat Rate mL/min Glucose Level 172 Calcium Level 9.0 Test 06/25/18 17:17 Bedside Glucose 177 Subjective 24 Hr Interval Summary Free Text/Dictation No acute overnight events. Walked 40 feet with PT yesterday. Patient still feeling very fatigued; severe insomnia. Exam/Review of Systems Vital Signs Vitals Vital Signs Date Temp Pulse Resp B/P (MAP) Pulse Ox O2 O2 Flow FiO2 Time Delivery Rate 06/25/18 97.9 87 18 116/59 99 Room Air 14:17 (78) Intake and Output 06/24/18 06/24/18 06/25/18 1515:00 23:00 07:00 IntakeIntake Total 720 ml 450 ml OutputOutput Total 600 ml 650 ml 400 ml BalanceBalance -600 ml 70 ml 50 ml Exam Gen: lying in bed, No acute distress Head: Atraumatic Eyes: Normal Conjunctiva ENT: Normal External Ears, Nose and Mouth. Neck: Full range of motion. No meningismus. Resp: Clear to auscultation bilaterally Cardio: Regular rate and rhythm, no murmurs Abd: Soft, non tender, non distended. Normal bowel sounds Ext: no lower extremity edema bilaterally Medications Medications Current Medications IV Flush (NS 3 ml) 3 ml PER PROTOCOL IV ; Start 06/20/18 at 15:30 Ondansetron HCl (Zofran Inj) 4 mg Q6H PRN IV NAUSEA AND/OR VOMITING; Start 06/20/18 at 15:30 Acetaminophen (Tylenol Tab) 650 mg Q6H PRN PO PAIN LEVEL 1-3 OR FEVER Last administered on 06/24/18at 20:18; Admin Dose 650 MG; Start 06/20/18 at 15:30 Acetaminophen/ Hydrocodone Bitart ([place] (5/325)) 1 tab Q6H PRN PO MODERATE PAIN LEVEL 4-6; Start 06/20/18 at 15:30 Morphine Sulfate (morphine SULFATE (PF)) 2 mg Q4H PRN IV SEVERE PAIN LEVEL 7- 10; Start 06/20/18 at 15:30 Docusate Sodium (Colace) 100 mg Q12H PRN PO CONSTIPATION; Start 06/20/18 at 15:30 Magnesium Hydroxide (Milk Of Mag) 30 ml DAILY PRN PO CONSTIPATION; Start 06/20/18 at 15:30 Heparin Sodium (Porcine) (Heparin (5000 Units/1ml)) 5,000 unit Q12 SC Last administered on 06/25/18at 08:17; Admin Dose 5,000 UNIT; Start 06/20/18 at 17:00 Lorazepam (Ativan) 1 mg Q4H PRN IV ANXIETY Last administered on 06/25/18at 12:13; Admin Dose 1 MG; Start 06/20/18 at 15:30 Albuterol/ Ipratropium (Duoneb) 3 ml Q4H RESP THERAPY PRN HHN SHORTNESS OF BREATH; Start 06/20/18 at 15:30 Hydralazine HCl (Apresoline) 10 mg Q6H PRN IV ELEVATED BLOOD PRESSURE; Start 06/20/18 at 15:30 Nitroglycerin (Nitroglycerin (Sl Tab) 0.4 Mg) 1 tab Q5M PRN SL ANGINA; Start 06/20/18 at 15:30 Aspirin (Aspirin) 81 mg DAILY PO Last administered on 06/25/18at 08:15; Admin Dose 81 MG; Start 06/20/18 at 17:00 Atorvastatin Calcium (Lipitor) 20 mg HS PO Last administered on 06/24/18at 20:17; Admin Dose 20 MG; Start 06/20/18 at 21:00 Carvedilol (Coreg) 6.25 mg BID PO Last administered on 06/25/18at 08:15; Admin Dose 6.25 MG; Start 06/20/18 at 17:00 Zolpidem Tartrate (Ambien) 5 mg HS PRN PO INSOMNIA Last administered on 06/23/18at 21:12; Admin Dose 5 MG; Start 06/20/18 at 23:30 Diagnostic Test (Pha) (Accu-Chek) 1 ea 02 XX Last administered on 06/23/18at 01:25; Admin Dose 1 EA; Start 06/22/18 at 02:00 Insulin Aspart (Novolog Insulin Pen) NOVOLOG *MILD* ALGORITHM WITH MEALS BEDTIME SC Last administered on 06/25/18at 17:19; Admin Dose 1 UNIT; Start 06/21/18 at 11:30 Miscellaneous Information 1 ea NOTE XX ; Start 06/21/18 at 09:00 Glucose (Glutose) 15 gm Q15M PRN PO DECREASED GLUCOSE; Start 06/21/18 at 09:00 Glucose (Glutose) 22.5 gm Q15M PRN PO DECREASED GLUCOSE; Start 06/21/18 at 09:00 Dextrose (D50w Syringe) 25 ml Q15M PRN IV DECREASED GLUCOSE; Start 06/21/18 at 09:00 Dextrose (D50w Syringe) 50 ml Q15M PRN IV DECREASED GLUCOSE; Start 06/21/18 at 09:00 Glucagon (Glucagen) 1 mg Q15M PRN IM DECREASED GLUCOSE; Start 06/21/18 at 09:00 Glucose (Glutose) 15 gm Q15M PRN BUCCAL DECREASED GLUCOSE; Start 06/21/18 at 09:00 Aripiprazole (Abilify) 2 mg DAILY PO Last administered on 06/25/18at 08:15; Admin Dose 2 MG; Start 06/21/18 at 12:00 Lamotrigine (Lamictal) 25 mg BID PO Last administered on 06/25/18at 08:14; Admin Dose 25 MG; Start 06/21/18 at 21:00 Insulin Aspart (Novolog Insulin Pen) 8 unit WITH MEALS SC Last administered on 06/25/18 17:20; Admin Dose 8 UNIT; Start 06/22/18 at 12:00 Insulin Glargine (Lantus) 22 units DAILY@0800 SC Last administered on 1 08/26/17at 08:29; Admin Dose 22 UNITS; Start 06/23/18 at 08:00 Mirtazapine (Remeron) 15 mg HS PO Last administered on 06/24/18at 20:17; Admin Dose 15 MG; Start 06/22/18 at 21:00 Pantoprazole (Protonix Tab) 40 mg DAILY@06 PO Last administered on 06/25/18 05:29; Admin Dose 40 MG; Start 06/24/18 at 06:00 RUCHI SIDHU MD Jun 25, 2018 17:31
--- NOTE | 2018-06-25 18:10 | NUR ---
EOSS: PT STABLE THROUGHOUT SHIFT. ALL DUE MEDS GIVEN, HOURLY ROUNDING COMPLETED. PT COMPLAINING OF WEAKNESS AND LIGHT HEADEDNESS THIS MORNING, MD MADE AWARE. PT VERBALIZED FEELING BETTER THIS AFTERNOON. POC IS FOR PT TO TRANSFER TO SNF TOMORROW, D/C ORDER ALREADY PLACED. AWAITING PLACEMENT. WILL ENDORSE CARE OF PT TO ONCOMING SOFTWARE DESIGN ENGINEER RN.
[2018-06-25 21:00] VITALS: BP 140/73; PULSE 92; RESP 18
[2018-06-25] MEDS: MIRTAZAPINE 15 MG TAB PO SCH (21:20)
[2018-06-25] MEDS: ATORVASTATIN 20 MG TAB PO SCH (21:20)
[2018-06-26 02:00] VITALS: BP 129/63; PULSE 88; RESP 18
[2018-06-26] MEDS: ACCU-CHEK XX SCH (02:00)
[2018-06-26] MEDS: PANTOPRAZOLE (EC) 40 MG TAB PO SCH (05:46)
--- NOTE | 2018-06-26 06:24 | NUR ---
END OF SHIFT NOTE: PATIENT IS ALERT AND ORIENTED, AMBULATORY WITH ASSIST. NO COMPLAINTS OF PAIN AND NO SIGNS OF DISTRESS. BLOOD SUGAR ON HIGH LEVEL WITH COVERAGE. FALL PRECAUTION OBSERVED. CALL LIGHT WITHIN REACH. ALL NEEDS MET.
[2018-06-26 07:58] VITALS: BP 113/58; PULSE 17; PULSE 85; RESP 18
--- NOTE | 2018-06-26 08:15 | NUR ---
ANDREW NOTE: SNF UPDATE Received call from [facility] stating that they are unable to accept the pt. Received call from [facility] (P:[phone]) stating that they are accepting the pt. Caesar Aguilar RN CM [id number] Addendum: 06/26/18 at 1504 by MANOLO AGUILAR CM S/W Pt at bedside who is agreeable to transfer to [facility]. Transportation arranged via [email or web address] (P:[phone]) for next available (45-60 minutes). Trip#[id number]. ALONZO Ross aware.
[2018-06-26] MEDS: ARIPIPRAZOLE 2 MG TAB PO SCH (08:26)
[2018-06-26] MEDS: ASPIRIN 81 MG TAB PO SCH (08:26)
[2018-06-26] MEDS: LAMOTRIGINE 25 MG TAB PO SCH (08:27)
[2018-06-26] MEDS: INSULIN ASPART [NOVOLOG] 3 ML PEN SC SCH ×4 (08:33→11:54)
[2018-06-26] MEDS: INSULIN GLARGINE [LANTus] (100 UNITS/ML) SYG SC SCH (08:34)
[2018-06-26] MEDS: HEPARIN 5,000 UNIT/1 ML VIAL SC SCH (08:35)
--- NOTE | 2018-06-26 09:18 | PN ---
DATE: 06/26/2018 SUBJECTIVE: The patient is stable, no events overnight. No fevers, chills, nausea, vomiting. OBJECTIVE: VITAL SIGNS: Blood pressure is 113/58, pulse 78, respiration 18, temperature 98.1. HEENT: Head is normocephalic. NECK: Supple. HEART: Regular rate. LUNGS: Show diminished breath sounds at the base. ABDOMEN: Soft, nontender to palpation without rebound or guarding. EXTREMITIES: Negative for clubbing, cyanosis, no edema. DERMATOLOGIC: No rashes. MUSCULOSKELETAL: No joint effusions. NEUROLOGIC: No change in exam. MEDICATIONS: Reviewed. LABORATORY DATA: Shows a sodium 143, BUN 19, creatinine 1.29, glucose 253. White count 7.4, hemoglo bin 12.8, platelet count is 177. ASSESSMENT AND PLAN: 1. Nonoliguric acute kidney injury with previous baseline creatinine around 1.1 and 1.2 mg/dL. Etio logy of acute kidney injury is secondary to hemodynamics. Renal function is fluctuating near the pat ient's previous baseline. At this point, continue current treatment plans, supportive care, renally dose all meds. 2. Anemia. Continue to monitor hemoglobin and hematocrit levels. 3. Mineral bone disorder. Monitor calcium and phosphorus levels. 4. Diabetes. Continue current insulin regimen. 5. Dyslipidemia. Continue statin therapy. 6. History of depression, suicidal ideation. Continue medical management. 7. Hypertension. Continue current blood pressure regimen. Anticipate starting CHRISTINE inhibitor once r enal function stabilized. Dictated By: MICHAEL ZHANG/REBECA Conf#: [id number] DID#: [id number] CC: ROBINSON RAMIREZ;*EndCC*
--- NOTE | 2018-06-26 11:52 | NUR ---
PT NOTE [facility] Patient: Hood Alfred : 1950 Age/Sex: 68/M Unit#: [id number] Room/Bed: 5536 User: Stacy Griffin PTA Date: 06/26/18 11:52 Type: PT Technical Record Therapy day number 3 Subjective Denies pain Pain Scale NUMERIC Pain Intensity 0 (0-10) Patient Stated Goal for Pain Relief 0 (0-10) Pain Level Comment denied pain Exercise Assessment Label Bilat Lower Extremity Exercise Type Active ROM Additional Exercise Comments Manny, MARIXA, [facility] Exercise Start Time 11:20 Exercise End Time 11:30 Total Exercise Time 10 min (8-127) Transfer Sit to Stand Ability Contact Guard Assist Gait Training Start Time 11:30 Gait Assist Levels Minimum Assist Assistive Devices Front Wheel Walker Ambulation Distance 100 feet Additional Gait Comments slow, reciprocal pattern, forward posture. 1 standing rest break Gait Training End Time 11:52 Total Gait Training Treatment Time 22 min (8-127) Static Sitting Balance Good Dynamic Sitting Balance Fair plus Standing Static Balance Fair plus Dynamic Standing Balance Fair Additional Balance Assessments Comments FWW Safety Judgement Fair Activity Tolerance Fair Post Treatment Pain Intensity 0 0-10 Quality Indicators Light headedness Variance Documentation See note Total Treament Time 32 min (8-127) Total Minutes 32 Total Units 2 PT Technical Record Comment S: ALONZO Ross cleared pt for PT. Pt denied pain however later c/o a headache. Agreeable to tx O: Received pt sitting at EOB. CGA sit to stand and [place] gait training x 100' and presented with slow, reciprocal pattern, foward posture. VC for posture awareness. Required 1 standing rest break d/t fatigue and light headedness. Returned pt back to room/bed. Requested to be seated at EOB. Call light/phone within reach. Bed alarm on. Needs met A: Fair tolerance to tx. Improved gait distance however required 1 rest break P: Continue w/ POC and progress as tolerated
--- NOTE | 2018-06-26 12:00 | NUR ---
Diabetes Education Referral: Thank you for the referral. R: Upon discharge, consider Lantus 24 units and premeal Prandin 2 mg vs Glipizide 10 mg BID. Pt will also require RX for glucometer, strips and lancets. HbA1c 8.7%; 117kg; BMI 34; Cr 1.29; Admitting lab glucose 348 mg/dl Pt stated he has had T2DM since 2001. Pt stated he has always been on pills, prior to this admission pt was taking Glipizide 10 mg BID and Metformin 1000 mg BID. Pt stated he does not have a glucometer. With the use of handouts discussed at length with patient at bedside where the glucose comes from, how food breaks down into glucose, and how different medications (Lantus, Prandin, Glipizide) work. Reviewed glucose targets (pre and post meal), reviewed the different food groups and when/how to manage glucose by adjusting the carbohydrates and proteins. Discussed how different factors cause extra glucose released from the liver. Discussed how an increase in activity can assist in lowering glucose levels. Reviewed signs and symptoms of hypoglycemia and treatment. Due to insurance reasons, unable to provide a glucometer at this time. Reviewed the correct finger stick technique. Discussed timing of the insulin, locations of administration, to rotate the administration site, proper storage of the insulin, and to never inject insulin cold. Reviewed the correct injection technique using sample insulin pen and Venita pen needle. Pt return demonstrated with no issues or questions. Resources were given to pt for future follow up and reinforcement of insulin administration techniques. All questions answered.
[2018-06-26 14:00] VITALS: BP 107/55; PULSE 86; RESP 18
--- NOTE | 2018-06-26 14:34 | CONS ---
Date/Time of Note Date/Time of Note DATE: 06/26/18 TIME: 14:33 Assessment/Plan Assessment/Plan Assessment/Plan Uncontrolled diabetes/DKA Acute kidney injury, improved Depression Hypertension Preserved ejection fraction -Patient denies any current shortness of breath or chest pain or palpitations. Overall feeling better. Blood pressure trend overall remained stable. Continue beta-param as heart rate and blood pressure permits, aspirin therapy if no contraindication, statin therapy if no contraindication. Result Diagram: 06/26/18 0544 06/26/18 0544 Results 24hrs Laboratory Tests Test 06/25/18 17:17 06/25/18 21:21 06/26/18 02:28 06/26/18 05:44 Bedside Glucose 177 253 H 223 H White Blood 7.4 Count Red Blood Count 4.33 L Hemoglobin 12.8 L Hematocrit 38.1 L Mean Corpuscular 88.0 Volume Mean Corpuscular 29.6 Hemoglobin Mean Corpuscular 33.6 Hemoglobin Lori nt Red Cell 12.6 Distribution Width Platelet Count 177 Mean Platelet 11.5 H Volume Immature 0.800 H Granulocytes % Neutrophils % 50.6 Lymphocytes % 34.5 Monocytes % 8.8 Eosinophils % 4.9 Basophils % 0.4 Nucleated Red 0.0 Blood Cells % Immature 0.060 H Granulocytes # Neutrophils # 3.7 Lymphocytes # 2.6 Monocytes # 0.7 Eosinophils # 0.4 Basophils # 0.0 Nucleated Red 0.0 Blood Cells # Sodium Level 143 Potassium Level 4.2 Chloride Level 105 Carbon Dioxide 25 Level Anion Gap 13 Blood Urea 19 Nitrogen Creatinine 1.29 H Est Glomerular 55 L Filtrat Rate mL/min Glucose Level 193 Calcium Level 9.2 Test 06/26/18 08:26 06/26/18 11:53 Bedside Glucose 188 198 Consultation Date/Type/Reason Admit Date/Time Jun 20, 2018 at 14:17 Initial Consult Date Type of Consult cv 24 HR Interval Summary Free Text/Dictation Feeling better today with more energy. Denies chest pain, palpitations or shortness of breath Exam/Review of Systems Vital Signs Vitals Vital Signs Date Temp Pulse Resp B/P (MAP) Pulse Ox O2 O2 Flow FiO2 Time Delivery Rate 06/26/18 97.8 86 18 107/55 97 Room Air 14:00 (72) Intake and Output 06/25/18 06/25/18 06/26/18 1515:00 23:00 07:00 IntakeIntake Total 400 ml OutputOutput Total 200 ml BalanceBalance 200 ml Exam No apparent distress, sitting on edge of bed Constitutional: alert, oriented, obese Head: normocephalic Respiratory: other (Coarse breath sounds bilaterally, no wheezing) Cardiovascular: regular rate and rhythm, other (S1-S2 heard) Gastrointestinal: soft, non-tender, bowel sounds Extremities: edema Medications Medications Current Medications IV Flush (NS 3 ml) 3 ml PER PROTOCOL IV ; Start 06/20/18 at 15:30 Ondansetron HCl (Zofran Inj) 4 mg Q6H PRN IV NAUSEA AND/OR VOMITING; Start 1 08/21/17 at 15:30 Acetaminophen (Tylenol Tab) 650 mg Q6H PRN PO PAIN LEVEL 1-3 OR FEVER Last administered on 06/24/18at 20:18; Admin Dose 650 MG; Start 06/20/18 at 15:30 Acetaminophen/ Hydrocodone Bitart ([place] (5/325)) 1 tab Q6H PRN PO MODERATE PAIN LEVEL 4-6; Start 06/20/18 at 15:30 Morphine Sulfate (morphine SULFATE (PF)) 2 mg Q4H PRN IV SEVERE PAIN LEVEL 7- 10; Start 06/20/18 at 15:30 Docusate Sodium (Colace) 100 mg Q12H PRN PO CONSTIPATION; Start 06/20/18 at 15:30 Magnesium Hydroxide (Milk Of Mag) 30 ml DAILY PRN PO CONSTIPATION; Start 06/20/18 at 15:30 Heparin Sodium (Porcine) (Heparin (5000 Units/1ml)) 5,000 unit Q12 SC Last administered on 06/26/18at 08:35; Admin Dose 5,000 UNIT; Start 06/20/18 at 17:00 Lorazepam (Ativan) 1 mg Q4H PRN IV ANXIETY Last administered on 06/25/18at 12:13; Admin Dose 1 MG; Start 06/20/18 at 15:30 Albuterol/ Ipratropium (Duoneb) 3 ml Q4H RESP THERAPY PRN HHN SHORTNESS OF BREATH; Start 06/20/18 at 15:30 Hydralazine HCl (Apresoline) 10 mg Q6H PRN IV ELEVATED BLOOD PRESSURE; Start 06/20/18 at 15:30 Nitroglycerin (Nitroglycerin (Sl Tab) 0.4 Mg) 1 tab Q5M PRN SL ANGINA; Start 06/20/18 at 15:30 Aspirin (Aspirin) 81 mg DAILY PO Last administered on 06/26/18at 08:26; Admin Dose 81 MG; Start 06/20/18 at 17:00 Atorvastatin Calcium (Lipitor) 20 mg HS PO Last administered on 06/25/18at 21:20; Admin Dose 20 MG; Start 06/20/18 at 21:00 Carvedilol (Coreg) 6.25 mg BID PO Last administered on 06/26/18at 08:31; Admin Dose 6.25 MG; Start 06/20/18 at 17:00 Zolpidem Tartrate (Ambien) 5 mg HS PRN PO INSOMNIA Last administered on at 21:12; Admin Dose 5 MG; Start 06/20/18 at 23:30 Diagnostic Test (Pha) (Accu-Chek) 1 ea 02 XX Last administered on 06/23/18at 01:25; Admin Dose 1 EA; Start 06/22/18 at 02:00 Insulin Aspart (Novolog Insulin Pen) NOVOLOG *MILD* ALGORITHM WITH MEALS BEDTIME SC Last administered on 06/26/18at 11:54; Admin Dose 2 UNIT; Start 06/21/18 at 11:30 Miscellaneous Information 1 ea NOTE XX ; Start 06/21/18 at 09:00 Glucose (Glutose) 15 gm Q15M PRN PO DECREASED GLUCOSE; Start 06/21/18 at 09:00 Glucose (Glutose) 22.5 gm Q15M PRN PO DECREASED GLUCOSE; Start 06/21/18 at 09:00 Dextrose (D50w Syringe) 25 ml Q15M PRN IV DECREASED GLUCOSE; Start 06/21/18 at 09:00 Dextrose (D50w Syringe) 50 ml Q15M PRN IV DECREASED GLUCOSE; Start 06/21/18 at 09:00 Glucagon (Glucagen) 1 mg Q15M PRN IM DECREASED GLUCOSE; Start 06/21/18 at 09:00 Glucose (Glutose) 15 gm Q15M PRN BUCCAL DECREASED GLUCOSE; Start 06/21/18 at 09:00 Aripiprazole (Abilify) 2 mg DAILY PO Last administered on 06/26/18at 08:26; Ad min Dose 2 MG; Start 06/21/18 at 12:00 Lamotrigine (Lamictal) 25 mg BID PO Last administered on 06/26/18at 08:27; Admin Dose 25 MG; Start 06/21/18 at 21:00 Insulin Aspart (Novolog Insulin Pen) 8 unit WITH MEALS SC Last administered on 06/26/18at 11:54; Admin Dose 8 UNIT; Start 06/22/18 at 12:00 Insulin Glargine (Lantus) 22 units DAILY@0800 SC Last administered on 06/26/18at 08:34; Admin Dose 22 UNITS; Start 06/23/18 at 08:00 Mirtazapine (Remeron) 15 mg HS PO Last administered on 06/25/18at 21:20; Admin Dose 15 MG; Start 06/22/18 at 21:00 Pantoprazole (Protonix Tab) 40 mg DAILY@06 PO Last administered on 06/26/18at 05:46; Admin Dose 40 MG; Start 06/24/18 at 06:00 Diphenhydramine HCl (Benadryl) 50 mg HS PRN PO insomnia; Start 06/25/18 at 17:30 Obi Haji DO Jun 26, 2018 14:34
--- NOTE | 2018-06-26 15:16 | NUR ---
DISCHARGE SUMMARY PATIENT IS ALERT AND ORIENTED X4, ABLE TO MAKE NEEDS KNOWN. PATIENT IS TO BE DISCHARGED TO [facility]. REPORT GIVEN TO MALLORIE DOWELL. PATIENT WAS SPOKEN TO BY GEOLOGY TECHNICIANANNETTE KENDALL AND DYE REEL OPERATOR HELPER, IMELDA. PATIENT AGREES TO GO TO [facility]. PACKET WAS GIVEN TO EMS. ALL BELONGINGS SENT WITH PATIENT - 2 SHIRTS, 1 PANTS, 1 HOLY BIBLE, 2 SETS OF KEYS, BELTS, AND WALLET. Addendum: 06/26/18 at 1522 by LIDIA CHILEL RN PATIENT HAS NO IV ACCESS.
--- NOTE | 2018-06-26 16:40 | DS ---
Date/Time of Note Date/Time of Note DATE: 06/26/18 TIME: 16:32 Discharge Summary Admission/Discharge Info Admit Date/Time Jun 20, 2018 at 14:17 Discharge Date/Time Jun 26, 2018 at 15:26 Discharge Diagnosis Major depressive disorder Insulin-dependent diabetes Patient Condition: Good Consults Psychiatry Hx of Present Illness 68-year-old male past medical history of depression, diabetes, high cholesterol, prior non-ST elevation [place], hypertension who presents with elevated blood sugars and anxiety/suicidal ideation. Patient states he has been feeling depressed and having suicidal thoughts, but apparently did not go through with any attempts recently, but these have been going on for last 5 days. He subsequently stopped eating for the last 5 days. Is also had some nonbilious nonbloody vomiting mild, nausea symptoms and diarrhea. No fevers or chills, no upper or lower GI bleeding, no diarrhea constipation, no chest pain or shortness of breath. Apparently the patient had a suicide ideation symptoms as well 1 month ago and at that time he had taken clonidine extra doses, but again that was a month ago. When he came in today he was found with a creatinine of 2.0. He was also found with elevated blood sugars in the 300 range and slight elevation in his anion gap so signs of early DKA. An attempt was made apparently in the ER to have a psychiatrist evaluate the patient for his suicidal ideations, however this was not performed but a hospice social worker has spoken to the patient today. Hospital Course The patient had a tele-psych eval. He was determined to not be an immediate danger to himself or others, and involuntary hold not needed. He was continued on Abilify and started on Remeron 30 mg at bedtime, and Lamictal 25 mg twice a day. He did develop a mild resting tremor during this hospitalization. After several days of treatment he did still report hopelessness, insomnia, and poor appetite; but was reassured that the treatment of major depression can take weeks to have an effect. His diabetes was managed with subcutaneous insulin. He got diabetic education to inject himself when he goes home. Will plan to discharge to SNF as we wait for his mood stabilizers to take effect; he currently is unable to care for himself at home due to severe depression. Home Meds Active Scripts Aripiprazole* (Abilify*) 2 Mg Tablet, 2 MG PO DAILY, #30 TAB Prov:RUCHI SIDHU MD 06/25/18 Lamotrigine* (Lamotrigine*) 25 Mg Tablet, 25 MG PO BID, #30 TAB Prov:RUCHI SIDHU MD 06/25/18 Insulin Aspart* (Novolog Insulin Pen*) 100 Unit/Ml Soln, 8 UNIT SC WITH MEALS, #30 DAYSX 3 28 Prov:RUCHI SIDHU MD 06/25/18 [Insulin Glargine] 100 UNITS/ML SOLN No Conflict Check, 22 UNITS SC DAILY@0800 Prov:RUCHI SIDHU MD 06/25/18 Aspirin (Aspirin) 81 Mg Chew, 81 MG PO DAILY, #30 TAB Prov:SMITA ORTEGA NP 05/02/18 Carvedilol* (Carvedilol*) 6.25 Mg Tablet, 6.25 MG PO BID, #60 TAB Prov:SMITA ORTEGA NP 05/02/18 Losartan Potassium* (Cozaar*) 50 Mg Tablet, 50 MG PO BID, #60 TAB Prov:SMITA ORTEGA DENTAL ASSISTING INSTRUCTOR 05/02/18 Atorvastatin Calcium (Atorvastatin Calcium) 20 Mg Tablet, 20 MG PO HS, #30 TAB Prov:SMITA ORTEGA DENTAL ASSISTING INSTRUCTOR 05/02/18 Reported Medications Metoprolol Tartrate* (Lopressor*) 100 Mg Tablet, 100 MG PO BID, #60 TAB 05/27/18 Zolpidem Tartrate* (Zolpidem Tartrate*) 10 Mg Tablet, 10 MG PO QHS PRN for INSOMNIA, #30 TAB 05/01/18 Mirtazapine* (Mirtazapine*) 15 Mg Tablet, 15 MG PO HS, TAB 05/01/18 Glipizide* (Glipizide*) 10 Mg Tablet, 10 MG PO BID, TAB 11/24/14 Metformin* (Glucophage*) 500 Mg Tab, 500 MG PO BID, TAB 11/24/14 Follow-up Plan See your primary care doctor or a psychiatrist in 1 week. Primary Care Provider Care Physician No Primary Time spent on discharge: > 30 minutes Pending Labs Laboratory Tests Test 06/25/18 17:17 06/25/18 21:21 06/26/18 02:28 06/26/18 05:44 Bedside 177 253 223 Glucose mg/dL (70-220) mg/dL (70-220) mg/dL (70-220) White Blood 7.4 Count 10^3/ul (4.8-1 0.8) Red Blood 4.33 Count 10^6/ul (4.70- 6.10) Hemoglobin 12.8 g/dl (14.0-18. 0) Hematocrit 38.1 % (42.0-52.0) Mean 88.0 Corpuscular fl (82.0-101.0 Volume ) Mean 29.6 Corpuscular pg (29.0-33.0) Hemoglobin Mean 33.6 Corpuscular g/dl (32.0-37. Hemoglobin Conc 0) ent Red Cell 12.6 Distribution % (11.5-14.5) Width Platelet Count 177 10^3/UL (140-4 15) Mean Platelet 11.5 Volume fl (7.4-10.4) Immature 0.800 Granulocytes % % (0.001-0.429 ) Neutrophils % 50.6 % (39.0-77.0) Lymphocytes % 34.5 % (15.0-51.0) Monocytes % 8.8 % (0.0-11.0) Eosinophils % 4.9 % (0.0-7.0) Basophils % 0.4 % (0.0-2.0) Nucleated Red 0.0 Blood Cells % /100WBC (0.0-0 .0) Immature 0.060 Granulocytes # 10^3/ul (0.0-0 .031) Neutrophils # 3.7 10^3/ul (1.6-7 .5) Lymphocytes # 2.6 10^3/ul (0.8-2 .9) Monocytes # 0.7 10^3/ul (0.3-0 .9) Eosinophils # 0.4 10^3/ul (0.0-0 .5) Basophils # 0.0 10^3/ul (0.0-0 .1) Nucleated Red 0.0 Blood Cells # 10^3/ul (0.0-0 .0) Sodium Level 143 mmol/L (135-14 4) Potassium 4.2 Level mmol/L (3.5-5. 1) Chloride Level 105 mmol/L (97-110 ) Carbon Dioxide 25 Level mmol/L (21-31) Anion Gap 13 (5-13) Blood Urea 19 Nitrogen mg/dl (7-20) Creatinine 1.29 mg/dl (0.61-1. 24) Est Glomerular 55 Filtrat mL/min (>60) Rate mL/min Glucose Level 193 mg/dl (70-220) Calcium Level 9.2 mg/dl (8.4-10. 2) Test 06/26/18 08:26 06/26/18 11:53 Bedside 188 198 Glucose mg/dL (70-220) mg/dL (70-220) RUCHI SIDHU MD Jun 26, 2018 16:40
== END 2018-06-26 15:26 | DRG 638 ==
LOC: E/R 12:57 → 5EC 14:17 → OBSVTOIN 14:17 → INTOOBSV 16:26 → OBSVTOIN 16:26 → ICU 17:22 → 5EC 06-21 18:19
PROVIDERS: ADMIT Hospitalist; ATTEND Internal Medicine
DX: E11.10 Type 2 diabetes mellitus with ketoacidosis without coma (principal); R45.851 Suicidal ideations; N17.9 Acute kidney failure, unspecified; E87.2 Acidosis; I25.2 Old myocardial infarction; F32.9 Major depressive disorder, single episode, unspecified
CPT/HCPCS: 36415; 76775; 80048; 80053; 80061; 80307; 81001; 81003; 82010; 82043; 82550; 82553; 82803; 82962; 83036; 83735; 84100; 84155; 84300; 84439; 84443; 84484; 85025; 85610; 85730; 86850; 86900; 86901; 87081; 87086; 93005; 96374; 97110; 97116; 97161; 97530; C9113; J1644; J1815; J2060; J3475; J3480; J7030; J7120

== ENCOUNTER 2018-09-22 11:00 | Inpatient (IN) | payer MEDICARE, BC ==
[~2018-09-22] VITALS: Ht 185.4 cm; Wt 112.2 kg
[~2018-09-22 11:00] MED LIST changes: +ARIP2TAB17 PO; +Insulin Glargine SC; +LAMO25TA PO; +NOVO3I SC
--- NOTE | 2018-09-22 11:15 | ERD ---
ER Documentation Chief Complaint Chief Complaint Dizziness HPI The patient is a 68-year-old male, presenting to the ER because of dizziness, room spinning for 1 day. He had similar symptoms previously, denies syncope, near syncope, facial pain, neck pain, chest pain, dyspnea, abdominal pain, vomiting, dysuria. The home health nurse visited him this morning. He was given medication for high blood pressure and advised him to go to the ER. He was recently discharged from a group home where his stay for 5 weeks back to his house 3 days ago. He does not smoke, drink Past medical history: Diabetes mellitus, hypertension, dyslipidemia, diabetes mellitus, depression, anxiety, CAD Past surgical history: None ROS All systems reviewed and are negative except as per history of present illness. Medications Home Meds Active Scripts Insulin Aspart* (Novolog Insulin Pen*) 100 Unit/Ml Soln, 8 UNIT SC WITH MEALS, #30 DAYSX 3 28 Prov:RUCHI SIDHU MD 06/25/18 Aspirin (Aspirin) 81 Mg Chew, 81 MG PO DAILY, #30 TAB Prov:SMITA ORTEGA NP 05/02/18 Carvedilol* (Carvedilol*) 6.25 Mg Tablet, 6.25 MG PO BID, #60 TAB Prov:SMITA ORTEGA NP 05/02/18 Atorvastatin Calcium (Atorvastatin Calcium) 20 Mg Tablet, 20 MG PO HS, #30 TAB Prov:SMITA ORTEGA NP 05/02/18 Reported Medications Mirtazapine* (Mirtazapine*) 7.5 Mg Tablet, 7.5 MG PO HS, TAB 09/22/18 Tamsulosin Hcl* (Flomax*) 0.4 Mg Cap.er.24h, 0.4 MG PO HS, CAP 09/22/18 Atorvastatin Calcium* (Atorvastatin Calcium*) 20 Mg Tablet, 20 MG PO QHS, #30 TAB 09/22/18 Fluvoxamine Maleate* (Luvox*) 50 Mg Tab, 50 MG PO TID, TAB 09/22/18 Insulin Glargine* (Lantus*) 100 Unit/Ml Soln, 22 UNIT SC DAILY, #1 VIAL 09/22/18 Glipizide* (Glipizide*) 10 Mg Tablet, 10 MG PO BID, TAB 11/24/14 Discontinued Reported Medications Metoprolol Tartrate* (Lopressor*) 100 Mg Tablet, 100 MG PO BID, #60 TAB 05/27/18 Zolpidem Tartrate* (Zolpidem Tartrate*) 10 Mg Tablet, 10 MG PO QHS PRN for INSOMNIA, #30 TAB 05/01/18 Mirtazapine* (Mirtazapine*) 15 Mg Tablet, 15 MG PO HS, TAB 05/01/18 Metformin* (Glucophage*) 500 Mg Tab, 500 MG PO BID, TAB 11/24/14 Discontinued Scripts Aripiprazole* (Abilify*) 2 Mg Tablet, 2 MG PO DAILY, #30 TAB Prov:RUCHI SIDHU MD 06/25/18 Lamotrigine* (Lamotrigine*) 25 Mg Tablet, 25 MG PO BID, #30 TAB Prov:RUCHI SIDHU MD 06/25/18 [Insulin Glargine] 100 UNITS/ML SOLN No Conflict Check, 22 UNITS SC DAILY@0800 Prov:RUCHI SIDHU MD 06/25/18 Losartan Potassium* (Cozaar*) 50 Mg Tablet, 50 MG PO BID, #60 TAB Prov:SMITA ORTEGA NP 05/02/18 Allergies Allergies: Coded Allergies: Penicillins (Verified Allergy, Unknown, 09/22/18) PMhx/Soc History of Surgery: Yes (CATARACT BOTH EYES) Anesthesia Reaction: No Hx Neurological Disorder: No Hx Respiratory Disorders: No Hx Cardiac Disorders: Yes (HTN.) Hx Psychiatric Problems: Yes (DEPRESSION/ANXIETY) Hx Miscellaneous Medical Probl: Yes (pls see EMR) Hx Alcohol Use: No Hx Substance Use: No Hx Tobacco Use: No Physical Exam Vitals Vital Signs Date Temp Pulse Resp B/P (MAP) Pulse Ox O2 O2 Flow FiO2 Time Delivery Rate 09/22/18 65 17 122/74 100 Room Air 12:53 (90) 09/22/18 62 15 147/82 100 Room Air 11:23 (103) 09/22/18 97.8 78 18 147/82 100 11:17 (103) Physical Exam Const: No acute distress. Head: Atraumatic. Eyes: Normal Conjunctiva. ENT: Normal External Ears, Nose and Mouth. Neck: Full range of motion. No meningismus. Resp: Clear to auscultation bilaterally. Cardio: Regular rate and rhythm. Abd: Soft, non distended, normal bowel sounds, non tender. Skin: No petechiae or rashes. Back: No midline or flank tenderness. Ext: No cyanosis, or edema. Neur: Awake and alert. No focal deficit Psych: Normal Mood and Affect. Result Diagram: 09/22/18 1137 09/22/18 1137 Results 24 hrs Laboratory Tests Test 09/22/18 11:37 09/22/18 11:45 White Blood Count 8.2 10^3/ul Red Blood Count 4.47 10^6/ul Hemoglobin 13.0 g/dl Hematocrit 39.9 % Mean Corpuscular Volume 89.3 fl Mean Corpuscular Hemoglobin 29.1 pg Mean Corpuscular Hemoglobin Concent 32.6 g/dl Red Cell Distribution Width 12.8 % Platelet Count 197 10^3/UL Mean Platelet Volume 11.0 fl Immature Granulocytes % 0.500 % Neutrophils % 71.5 % Lymphocytes % 19.3 % Monocytes % 5.6 % Eosinophils % 2.7 % Basophils % 0.4 % Nucleated Red Blood Cells % 0.0 /100WBC Immature Granulocytes # 0.040 10^3/ul Neutrophils # 5.9 10^3/ul Lymphocytes # 1.6 10^3/ul Monocytes # 0.5 10^3/ul Eosinophils # 0.2 10^3/ul Basophils # 0.0 10^3/ul Nucleated Red Blood Cells # 0.0 10^3/ul Sodium Level 143 mmol/L Potassium Level 5.1 mmol/L Chloride Level 108 mmol/L Carbon Dioxide Level 25 mmol/L Anion Gap 10 Blood Urea Nitrogen 26 mg/dl Creatinine 1.38 mg/dl Est Glomerular Filtrat Rate mL/min 51 mL/min Glucose Level 250 mg/dl Calcium Level 9.9 mg/dl Troponin I < 0.012 ng/ml Prothrombin Time 13.9 Sec Prothrombin Time Ratio 1.1 INR International Normalized Ratio 1.06 Activated Partial Thromboplast Time 31.5 Sec Current Medications Medications Dose Sig/Vaibhav Start Time Status Last (Trade) Ordered Route PRN Stop Time Admin Dose Reason Admin Meclizine 25 mg ONCE ONCE 09/22/18 DC 09/22/18 HCl PO 11:30 11:51 (Antivert) 09/22/18 11:33 Procedures/MDM EKG: Read by emergency physician Rate/Rhythm: Normal Sinus Rhythm 66 beats/min QRS, ST, T-waves: No ST elevation, no T inversion, LAD, septal Q's Impression: Abnormal EKG [place] [id number] Radiology Main Line: [phone] DIAGNOSTIC IMAGING REPORT Patient: RICKY ZACARIAS : 1950 Age: 68 Sex: M [id number] [id number] DOS: 09/22/18 1130 Ordering MD: PAULINE HILTON MD Location: E/R Room/Bed: PROCEDURE: CT Brain without contrast. CLINICAL INDICATION: Annual Exam TECHNIQUE: A CT of the brain was performed on a GE [employer] 64-slice CT scanner utilizing axial imaging from the skull base through the vertex without IV contrast. Multiplanar reformatted images were made. Images were reviewed on a PACS workstation. The CTDIvol is 38.38 mGy and the DLP is 634.23 mGycm. DICOM images are available. One or more of the following dose reduction techniques were utilized: 1.) Automated exposure control 2.) Adjustment of the mA +/- kV according to patient's size 3.) Use of iterative reconstruction technique. COMPARISON: None FINDINGS: There is no intracranial hemorrhage, mass effect, or midline shift. No extra- axial fluid collection is seen. Moderate generalized atrophy. The density of the brain is normal, and the chow white matter differentiation appears well- preserved. Moderate to severe atherosclerotic calcification of the right intracranial vertebral artery. The visualized paranasal sinuses and osseous structures are grossly unremarkable. IMPRESSION: 1. No evidence of acute intracranial pathology. 2. Senescent changes of the brain with moderate generalized atrophy. RPTAT: PP Physician Vonnie Date Time Electronically viewed and signed by Physician Vonnie on 09/22/2018 13:03 rV/ CC: PAULINE HILTON MD [phone] MEDICAL MAKING DECISION: The patient is a 68-year-old male, presenting with acute dizziness of unclear etiology, not responding to Antivert. He will be admitted for further evaluation The differential diagnoses considered include but are not limited to central causes such as cerebellar infarct, cerebellar hemorrhage, cerebellar tumor, acoustic neuroma, peripheral causes such as benign positional vertigo, labyrinthitis, medication, Meniere's disease. Departure Diagnosis: Primary Impression: Dizziness Additional Impressions: Renal insufficiency Anemia Hyperglycemia Condition: Stable Comments I discussed the findings with the patient. I discussed the patient with the hospitalist Dr Juárez at 1:35 pm who was made aware of the lab, the treatment, the patient condition. The patient is admitted to [facility] Disclaimer: Inadvertent spelling and grammatical errors are likely due to EHR/dictation software use and do not reflect on the overall quality of patient care. Also, please note that the electronic time recorded on this note does not necessarily reflect the actual time of the patient encounter. PAULINE HILTON MD Sep 22, 2018 11:15
[2018-09-22] MEDS ORDERED: MECLIZINE 12.5 MG TAB PO ONE (11:30)
[2018-09-22] MEDS ORDERED: LANT3I SC (13:14)
[2018-09-22] MEDS ORDERED: TAMS-14 PO (13:18)
[2018-09-22] MEDS ORDERED: ATOR20TA38 PO (13:18)
[2018-09-22] MEDS ORDERED: BLVX50T PO (13:18)
[2018-09-22] MEDS ORDERED: MIRT7.5T8 PO (13:18)
--- NOTE | 2018-09-22 16:28 | HP ---
Date/Time of Note Date/Time of Note DATE: 09/22/18 TIME: 16:26 Assessment/Plan VTE Prophylaxis SCD applied (from Nsg): Yes Pharmacological prophylaxis: NA/contraindicated Pharm contraindication: low risk/ambulating Lines/Catheters IV Catheter Type (from Nrsg): Saline Lock Assessment/Plan Hospital Course 1. Dizziness likely secondary to BPV CT head shows no acute findings No indication for further diagnostics and symptoms are consistent with BPV and are self-limiting Meclizine as needed Monitor overnight 2. Depression Continue home meds 3. Diabetes Continue home insulin regimen Prophylaxis: SCDs Result Diagram: 09/22/18 1137 09/22/18 1137 Results 24hrs Laboratory Tests Test 09/22/18 11:37 09/22/18 11:45 White Blood Count 8.2 Red Blood Count 4.47 L Hemoglobin 13.0 L Hematocrit 39.9 L Mean Corpuscular Volume 89.3 Mean Corpuscular Hemoglobin 29.1 Mean Corpuscular Hemoglobin Concent 32.6 Red Cell Distribution Width 12.8 Platelet Count 197 Mean Platelet Volume 11.0 H Immature Granulocytes % 0.500 H Neutrophils % 71.5 Lymphocytes % 19.3 Monocytes % 5.6 Eosinophils % 2.7 Basophils % 0.4 Nucleated Red Blood Cells % 0.0 Immature Granulocytes # 0.040 H Neutrophils # 5.9 Lymphocytes # 1.6 Monocytes # 0.5 Eosinophils # 0.2 Basophils # 0.0 Nucleated Red Blood Cells # 0.0 Sodium Level 143 Potassium Level 5.1 Chloride Level 108 Carbon Dioxide Level 25 Anion Gap 10 Blood Urea Nitrogen 26 H Creatinine 1.38 H Est Glomerular Filtrat Rate mL/min 51 L Glucose Level 250 H Calcium Level 9.9 Troponin I < 0.012 Prothrombin Time 13.9 Prothrombin Time Ratio 1.1 INR International Normalized Ratio 1.06 Activated Partial Thromboplast Time 31.5 HPI/ROS Admit Date/Time Admit Date/Time September 22, 2018 Hx of Present Illness Patient is a 68-year-old male with a history of diabetes and major depression, patient presents with 2 days of dizziness exacerbated by movement of the head. Patient has no other complaints at this time. ROS Constitutional: no complaints, improved Eyes: no complaints ENT: no complaints Respiratory: no complaints Cardiovascular: no complaints Gastrointestinal: no complaints Genitourinary: no complaints Musculoskeletal: no complaints Skin: no complaints Neurologic: dizziness Endocrine: no complaints Lymphatic: no complaints Psychological: no complaints, nl mood/affect Immunologic: no complaints PMH/Family/Social Past Medical History Diabetes, depression Coded Allergies: Penicillins (Verified Allergy, Unknown, 09/22/18) Past Surgical History Past Surgical Hx: no surgical history Family History Significant Family History: no pertinent family hx Social History Alcohol Use: rarely Smoking Status: Never smoker Drug Use: none Exam/Review of Systems Vital Signs Vitals Vital Signs Date Temp Pulse Resp B/P (MAP) Pulse Ox O2 O2 Flow FiO2 Time Delivery Rate 09/22/18 66 18 107/66 99 Room Air 16:11 (80) 09/22/18 97.8 14:38 Exam Constitutional: alert, oriented Respiratory: clear to auscultation Cardiovascular: regular rate and rhythm Gastrointestinal: soft; No distended Musculoskeletal: nl extremities to inspection HAIDER WILLIS Sep 22, 2018 16:28
[2018-09-22] MEDS ORDERED: NACL 0.9% 3 ML SYG IV SCH (16:30)
[2018-09-22] MEDS ORDERED: ZOLPIDEM 5 MG TAB PO PRN (16:30)
[2018-09-22] MEDS ORDERED: ACETAMINOPHEN 325 MG TAB PO PRN (16:30)
[2018-09-22] MEDS ORDERED: morphine 2 MG INJ IV PRN (16:30)
[2018-09-22] MEDS ORDERED: ONDANSETRON 4 MG INJ IV PRN (16:30)
[2018-09-22] MEDS ORDERED: GLUCOSE GEL 15 GRAM TUBE PO PRN ×2 (18:00)
[2018-09-22] MEDS ORDERED: GLUCAGON 1 MG INJ IM PRN (18:00)
[2018-09-22] MEDS ORDERED: GLUCOSE GEL 15 GRAM TUBE BUCCAL PRN (18:00)
[2018-09-22] MEDS ORDERED: DEXTROSE 50% 50 ML SYRINGE IV PRN ×2 (18:00)
[2018-09-22 19:41] VITALS: PULSE 65
[2018-09-22 19:50] VITALS: BP 162/69; PULSE 69; RESP 16
[2018-09-22 20:00] VITALS: PULSE 65
[2018-09-22] MEDS: INSULIN ASPART [NOVOLOG] 3 ML PEN SC SCH ×3 (20:00→21:00)
[2018-09-22 20:08] VITALS: Ht 185.4 cm; Wt 112.2 kg
[2018-09-22] MEDS: TAMSULOSIN (SR) 0.4 MG CAP PO SCH (20:56)
[2018-09-22] MEDS: MIRTAZAPINE 15 MG TAB PO SCH (20:57)
[2018-09-22] MEDS: ATORVASTATIN 20 MG TAB PO SCH (20:57)
[2018-09-22] MEDS ORDERED: glipiZIDE 10 MG TAB PO SCH (21:00)
[2018-09-22] MEDS: SOD CHLORIDE 0.9% 1,000 ML IV SCH (21:31)
[2018-09-22] MEDS: FLUVOXAMINE 50 MG TAB PO SCH (23:45)
[2018-09-23] VITALS (10 sets, daily range): BP systolic 117–154; BP diastolic 61–77; PULSE 58–68; RESP 18–20
[2018-09-23] MEDS: ACCU-CHEK XX SCH (02:00)
[2018-09-23] MEDS: SOD CHLORIDE 0.9% 1,000 ML IV SCH ×3 (02:28→22:28)
[2018-09-23] MEDS: INSULIN ASPART [NOVOLOG] 3 ML PEN SC SCH ×7 (08:05→20:33)
[2018-09-23] MEDS: INSULIN GLARGINE [LANTus] (100 UNITS/ML) SYG SC SCH (08:05)
[2018-09-23] MEDS: ASPIRIN 81 MG TAB PO SCH (08:52)
[2018-09-23] MEDS: FLUVOXAMINE 50 MG TAB PO SCH ×3 (08:52→20:31)
[2018-09-23] MEDS: MECLIZINE 25 MG TAB PO PRN ×2 (08:52→12:06)
[2018-09-23] MEDS: DOCUSATE SODIUM 100 MG CAP PO PRN (08:52)
--- NOTE | 2018-09-23 15:06 | PN ---
Date/Time of Note Date/Time of Note DATE: 09/23/18 TIME: 15:03 Assessment/Plan VTE Prophylaxis Risk score (from Ns)>0 risk: 2 SCD applied (from Ns): Yes Pharmacological prophylaxis: other Pharm contraindication: low risk/ambulating Lines/Catheters [facility] Peripheral IV Urinary Cath still in place: No Assessment/Plan Assessment/Plan 1. Benign positional vertigo, antivert 2. Depression, continue home meds 3. Diabetes, Continue home insulin regimen 4. Prophylaxis: SCDs 5. Home tomorrow, continue PT Result Diagram: 09/23/1852209/23/18522 Results 24hrs Laboratory Tests Test 09/22/18 20:28 09/23/18 05:23 09/23/18 07:56 09/23/18 09:24 Bedside Glucose 110 141 White Blood Count 7.7 Red Blood Count 4.29 L Hemoglobin 12.6 L Hematocrit 38.6 L Mean Corpuscular 90.0 Volume Mean Corpuscular 29.4 Hemoglobin Mean Corpuscular 32.6 Hemoglobin Concent Red Cell 13.1 Distribution Width Platelet Count 202 Mean Platelet Volume 11.4 H Immature 0.400 Granulocytes % Neutrophils % 53.5 Lymphocytes % 33.7 Monocytes % 8.9 Eosinophils % 3.1 Basophils % 0.4 Nucleated Red Blood 0.0 Cells % Immature 0.030 Granulocytes # Neutrophils # 4.1 Lymphocytes # 2.6 Monocytes # 0.7 Eosinophils # 0.2 Basophils # 0.0 Nucleated Red Blood 0.0 Cells # Sodium Level 146 H Potassium Level 4.3 Chloride Level 109 Carbon Dioxide Level 25 Anion Gap 12 Blood Urea Nitrogen 24 H Creatinine 1.11 Est Glomerular > 60 Filtrat Rate mL/min Glucose Level 149 # Hemoglobin A1c 7.4 H Calcium Level 9.5 Phosphorus Level 3.8 Magnesium Level 2.0 Lab Scanned Report LAB Test 09/23/18 12:04 Bedside Glucose 168 Subjective 24 Hr Interval Summary Free Text/Dictation less dizziness, still weak with poor balance on walking, lives along Exam/Review of Systems Exam Vitals Vital Signs Date Temp Pulse Resp B/P (MAP) Pulse Ox O2 O2 Flow FiO2 Time Delivery Rate 09/23/18 65 13:09 09/23/18 Room Air 12:42 09/23/18 97.3 20 136/66 97 12:13 (89) Intake and Output 09/22/18 09/22/18 09/23/18 1515:00 23:00 07:00 IntakeIntake Total 500 ml BalanceBalance 500 ml Constitutional: alert, oriented, well developed Psych: no complaints, nl mood/affect Head: normocephalic, atraumatic Eyes: nl conjunctiva, EOMI, nl lids ENMT: nl external ears & nose, nl lips & teeth, nl nasal mucosa & septum Neck: supple, non-tender Respiratory: clear to auscultation, normal air movement; No congested cough, No crackles/rales, No diminished breath sounds, No intercostal retraction, No labored breathing, No respirations, No tactile fremitus, No wheezing, No other Cardiovascular: regular rate and rhythm, nl pulses; No bruits, No diastolic murmur, No edema, No gallop, No irregular rhythm, No jugular venous distention (JVD), No murmurs/extra sounds, No rub, No systolic murmur, No S3, No S4, No other Gastrointestinal: soft, nl liver, spleen, non-tender Musculoskeletal: nl extremities to inspection Extremities: normal pulses; No calf tenderness, No cyanosis, No clubbing, No edema, No pitting pedal edema, No palpable cord, No tenderness, No other Neurological: LEAD SU[employer]AIN[employer] SPECIALIST II-XII intact, nl mental status, nl speech, nl strength Results Results 24hrs Laboratory Tests Test 09/22/18 20:28 09/23/18 05:23 09/23/18 07:56 09/23/18 09:24 Bedside Glucose 110 141 White Blood Count 7.7 Red Blood Count 4.29 L Hemoglobin 12.6 L Hematocrit 38.6 L Mean Corpuscular 90.0 Volume Mean Corpuscular 29.4 Hemoglobin Mean Corpuscular 32.6 Hemoglobin Concent Red Cell 13.1 Distribution Width Platelet Count 202 Mean Platelet Volume 11.4 H Immature 0.400 Granulocytes % Neutrophils % 53.5 Lymphocytes % 33.7 Monocytes % 8.9 Eosinophils % 3.1 Basophils % 0.4 Nucleated Red Blood 0.0 Cells % Immature 0.030 Granulocytes # Neutrophils # 4.1 Lymphocytes # 2.6 Monocytes # 0.7 Eosinophils # 0.2 Basophils # 0.0 Nucleated Red Blood 0.0 Cells # Sodium Level 146 H Potassium Level 4.3 Chloride Level 109 Carbon Dioxide Level 25 Anion Gap 12 Blood Urea Nitrogen 24 H Creatinine 1.11 Est Glomerular > 60 Filtrat Rate mL/min Glucose Level 149 # Hemoglobin A1c 7.4 H Calcium Level 9.5 Phosphorus Level 3.8 Magnesium Level 2.0 Lab Scanned Report LAB Test 09/23/18 12:04 Bedside Glucose 168 Medications Medication Current Medications Sodium Chloride 1,000 ml @ 100 mls/hr Q10H IV Last administered on 09/23/18 12:06; Admin Dose 100 MLS/HR; Start 09/22/18 at 16:28 IV Flush (NS 3 ml) 3 ml PER PROTOCOL IV ; Start 09/22/18 at 16:30 Ondansetron HCl (Zofran Inj) 4 mg Q6H PRN IV NAUSEA/VOMITING; Start 09/22/18 at 16:30 Acetaminophen (Tylenol Tab) 650 mg Q6H PRN PO .PAIN 1-3 OR TEMP; Start 09/22/18 at 16:30 Morphine Sulfate (morphine) 2 mg Q4H PRN IV .SEVERE PAIN 7-10; Start 09/22/18 at 16:30 Docusate Sodium (Colace) 100 mg Q12H PRN PO .CONSTIPATION Last administered on 09/23/18 08:52; Admin Dose 100 MG; Start 09/22/18 at 16:30 Zolpidem Tartrate (Ambien) 5 mg QHS PRN PO .INSOMNIA; Start 09/22/18 at 16:30 Aspirin (Aspirin) 81 mg DAILY PO Last administered on 09/23/18 08:52; Admin Dose 81 MG; Start 09/23/18 at 09:00 Atorvastatin Calcium (Lipitor) 20 mg QHS PO Last administered on 09/22/18 20:57; Admin Dose 20 MG; Start 09/22/18 at 21:00 Carvedilol (Coreg) 6.25 mg BID PO Last administered on 09/23/18 08:52; Admin Dose 6.25 MG; Start 09/22/18 at 21:00 Fluvoxamine Maleate (Luvox) 50 mg TID PO Last administered on 09/23/18 12:06; Admin Dose 50 MG; Start 09/22/18 at 21:00 Insulin Aspart (Novolog Insulin Pen) 8 unit WITH MEALS SC Last administered on 3/26/19at 12:09; Admin Dose 8 UNIT; Start 09/22/18 at 18:00 Insulin Glargine (Lantus) 22 units DAILY SC Last administered on 09/23/18 08:05; Admin Dose 22 UNITS; Start 09/23/18 at 09:00 Mirtazapine (Remeron) 7.5 mg HS PO Last administered on 09/22/18 20:57; Admin Dose 7.5 MG; Start 09/22/18 at 21:00 Tamsulosin HCl (Flomax) 0.4 mg HS PO Last administered on 09/22/18 20:56; Admin Dose 0.4 MG; Start 09/22/18 at 21:00 Diagnostic Test (Pha) (Accu-Chek) 1 ea 02 XX ; Start 09/23/18 at 02:00 Insulin Aspart (Novolog Insulin Pen) NOVOLOG *MILD* ALGORITHM WITH MEALS BEDTIME SC Last administered on 09/23/18 12:10; Admin Dose 1 UNIT; Start 09/22/18 at 18:00 Meclizine HCl (Antivert) 25 mg TID PRN PO DIZZINESS Last administered on 09/23/18 12:06; Admin Dose 25 MG; Start 09/22/18 at 16:30 Miscellaneous Information 1 ea NOTE XX ; Start 09/22/18 at 18:00 Glucose (Glutose) 15 gm Q15M PRN PO DECREASED GLUCOSE; Start 09/22/18 at 18:00 Glucose (Glutose) 22.5 gm Q15M PRN PO DECREASED GLUCOSE; Start 09/22/18 at 18:00 Dextrose (D50w Syringe) 25 ml Q15M PRN IV DECREASED GLUCOSE; Start 09/22/18 at 18:00 Dextrose (D50w Syringe) 50 ml Q15M PRN IV DECREASED GLUCOSE; Start 09/22/18 at 18:00 Glucagon (Glucagen) 1 mg Q15M PRN IM DECREASED GLUCOSE; Start 09/22/18 at 18:00 Glucose (Glutose) 15 gm Q15M PRN BUCCAL DECREASED GLUCOSE; Start 09/22/18 at 18:00 SHELIA SANCHEZ MD Sep 23, 2018 15:06
--- NOTE | 2018-09-23 16:29 | CONS ---
Assessment/Plan Assessment/Plan Hospital Course (Demo Recall) Dizziness Hypertension Preserved ejection fraction Diabetes Psychiatric disorder Nuclear cardiac perfusion study small infarct no ischemia in May 2018 -Patient presents with symptoms of dizziness with head movements upon waking up yesterday morning. History and exam consistent with vertigo as our esteemed hospitalist diagnosed. -Blood pressure trend slightly on the higher side. We will continue to monitor. Telemetry reviewed so far with no significant arrhythmias. Patient with recent echocardiogram with preserved ejection fraction and no significant valvular abnormalities. Consultation Date/Type/Reason Admit Date/Time September 22, 2018 Type of Consult Cardiology Reason for Consultation Dizziness Date/Time of Note DATE: 09/23/18 TIME: 16:22 Hx of Present Illness This is a 68-year-old male with past medical history of hypertension, diabetes, psychiatric disorder who presents with dizziness. The patient woke up in the morning with severe dizziness. Symptoms are worse with head movements and getting up. Over the next few hours, symptoms progressively improved. He does complain of mild dizziness with head movements currently but this is much better than before. Otherwise denies any chest pain, shortness of breath, palpitations. Denies any syncope. 12 point review of systems was performed with all pertinent positives and negatives mentioned above and all else is negative Past Medical History Medical History: diabetes, high cholesterol, hypertension Home Meds Active Scripts Insulin Aspart* (Novolog Insulin Pen*) 100 Unit/Ml Soln, 8 UNIT SC WITH MEALS, #30 DAYSX 3 28 Prov:RUCHI SIDHU MD 06/25/18 Aspirin (Aspirin) 81 Mg Chew, 81 MG PO DAILY, #30 TAB Prov:SMITA ORTEGA NP 05/02/18 Carvedilol* (Carvedilol*) 6.25 Mg Tablet, 6.25 MG PO BID, #60 TAB Prov:SMITA ORTEGA NP 05/02/18 Atorvastatin Calcium (Atorvastatin Calcium) 20 Mg Tablet, 20 MG PO HS, #30 TAB Prov:SMITA ORTEGA NP 05/02/18 Reported Medications Mirtazapine* (Mirtazapine*) 7.5 Mg Tablet, 7.5 MG PO HS, TAB 09/22/18 Tamsulosin Hcl* (Flomax*) 0.4 Mg Cap.er.24h, 0.4 MG PO HS, CAP 09/22/18 Atorvastatin Calcium* (Atorvastatin Calcium*) 20 Mg Tablet, 20 MG PO QHS, #30 TAB 09/22/18 Fluvoxamine Maleate* (Luvox*) 50 Mg Tab, 50 MG PO TID, TAB 09/22/18 Insulin Glargine* (Lantus*) 100 Unit/Ml Soln, 22 UNIT SC DAILY, #1 VIAL 09/22/18 Glipizide* (Glipizide*) 10 Mg Tablet, 10 MG PO BID, TAB 11/24/14 Discontinued Reported Medications Metoprolol Tartrate* (Lopressor*) 100 Mg Tablet, 100 MG PO BID, #60 TAB 05/27/18 Zolpidem Tartrate* (Zolpidem Tartrate*) 10 Mg Tablet, 10 MG PO QHS PRN for INSOMNIA, #30 TAB 05/01/18 Mirtazapine* (Mirtazapine*) 15 Mg Tablet, 15 MG PO HS, TAB 05/01/18 Metformin* (Glucophage*) 500 Mg Tab, 500 MG PO BID, TAB 11/24/14 Discontinued Scripts Aripiprazole* (Abilify*) 2 Mg Tablet, 2 MG PO DAILY, #30 TAB Prov:RUCHI SIDHU MD 06/25/18 Lamotrigine* (Lamotrigine*) 25 Mg Tablet, 25 MG PO BID, #30 TAB Prov:RUCHI SIDHU MD 06/25/18 [Insulin Glargine] 100 UNITS/ML SOLN No Conflict Check, 22 UNITS SC DAILY@0800 Prov:RUCHI SIDHU MD 06/25/18 Losartan Potassium* (Cozaar*) 50 Mg Tablet, 50 MG PO BID, #60 TAB Prov:SMITA ORTEGA NP 05/02/18 Medications Current Medications Sodium Chloride 1,000 ml @ 100 mls/hr Q10H IV Last administered on 09/23/18at 12:06; Admin Dose 100 MLS/HR; Start 09/22/18 at 16:28 IV Flush (NS 3 ml) 3 ml PER PROTOCOL IV ; Start 09/22/18 at 16:30 Ondansetron HCl (Zofran Inj) 4 mg Q6H PRN IV NAUSEA/VOMITING; Start 09/22/18 at 16:30 Acetaminophen (Tylenol Tab) 650 mg Q6H PRN PO .PAIN 1-3 OR TEMP; Start 09/22/18 at 16:30 Morphine Sulfate (morphine) 2 mg Q4H PRN IV .SEVERE PAIN 7-10; Start 09/22/18 at 16:30 Docusate Sodium (Colace) 100 mg Q12H PRN PO .CONSTIPATION Last administered on 09/23/18 08:52; Admin Dose 100 MG; Start 09/22/18 at 16:30 Zolpidem Tartrate (Ambien) 5 mg QHS PRN PO .INSOMNIA; Start 09/22/18 at 16:30 Aspirin (Aspirin) 81 mg DAILY PO Last administered on 09/23/18 08:52; Admin Dose 81 MG; Start 09/23/18 at 09:00 Atorvastatin Calcium (Lipitor) 20 mg QHS PO Last administered on 09/22/18 20:57; Admin Dose 20 MG; Start 09/22/18 at 21:00 Carvedilol (Coreg) 6.25 mg BID PO Last administered on 09/23/18 08:52; Admin Dose 6.25 MG; Start 09/22/18 at 21:00 Fluvoxamine Maleate (Luvox) 50 mg TID PO Last administered on 09/23/18 12:06; Admin Dose 50 MG; Start 09/22/18 at 21:00 Insulin Aspart (Novolog Insulin Pen) 8 unit WITH MEALS SC Last administered on 09/23/18 12:09; Admin Dose 8 UNIT; Start 09/22/18 at 18:00 Insulin Glargine (Lantus) 22 units DAILY SC Last administered on 09/23/18 08:05; Admin Dose 22 UNITS; Start 09/23/18 at 09:00 Mirtazapine (Remeron) 7.5 mg HS PO Last administered on 09/22/18 20:57; Admin Dose 7.5 MG; Start 09/22/18 at 21:00 Tamsulosin HCl (Flomax) 0.4 mg HS PO Last administered on 09/22/18 20:56; Admin Dose 0.4 MG; Start 09/22/18 at 21:00 Diagnostic Test (Pha) (Accu-Chek) 1 ea 02 XX ; Start 09/23/18 at 02:00 Insulin Aspart (Novolog Insulin Pen) NOVOLOG *MILD* ALGORITHM WITH MEALS BEDTIME SC Last administered on 3/26/19at 12:10; Admin Dose 1 UNIT; Start 09/22/18 at 18:00 Meclizine HCl (Antivert) 25 mg TID PRN PO DIZZINESS Last administered on 09/23/18at 12:06; Admin Dose 25 MG; Start 09/22/18 at 16:30 Miscellaneous Information 1 ea NOTE XX ; Start 09/22/18 at 18:00 Glucose (Glutose) 15 gm Q15M PRN PO DECREASED GLUCOSE; Start 09/22/18 at 18:00 Glucose (Glutose) 22.5 gm Q15M PRN PO DECREASED GLUCOSE; Start 09/22/18 at 18:00 Dextrose (D50w Syringe) 25 ml Q15M PRN IV DECREASED GLUCOSE; Start 09/22/18 at 18:00 Dextrose (D50w Syringe) 50 ml Q15M PRN IV DECREASED GLUCOSE; Start 09/22/18 at 18:00 Glucagon (Glucagen) 1 mg Q15M PRN IM DECREASED GLUCOSE; Start 09/22/18 at 18:00 Glucose (Glutose) 15 gm Q15M PRN BUCCAL DECREASED GLUCOSE; Start 09/22/18 at 18:00 Allergies: Coded Allergies: Penicillins (Verified Allergy, Unknown, 09/22/18) Past Surgical History Past Surgical Hx: no surgical history Social History Alcohol Use: rarely Smoking Status: Never smoker Drug Use: none Exam/Review of Systems Vital Signs Vitals Vital Signs Date Temp Pulse Resp B/P (MAP) Pulse Ox O2 O2 Flow FiO2 Time Delivery Rate 09/23/18 Room Air 16:09 09/23/18 98.1 62 20 154/74 98 15:11 (100) Intake and Output 09/22/18 09/22/18 09/23/18 1515:00 23:00 07:00 IntakeIntake Total 500 ml BalanceBalance 500 ml Exam Constitutional: alert, oriented (No apparent distress) Head: normocephalic Respiratory: clear to auscultation, normal air movement Cardiovascular: regular rate and rhythm (S1-S2 heard) Gastrointestinal: soft, non-tender, bowel sounds Extremities: other (No significant edema) Labs Result Diagram: 09/23/18 0523 09/23/18 0523 Results 24hrs Laboratory Tests Test 09/22/18 20:28 09/23/18 05:23 09/23/18 07:56 09/23/18 09:24 Bedside Glucose 110 141 White Blood Count 7.7 Red Blood Count 4.29 L Hemoglobin 12.6 L Hematocrit 38.6 L Mean Corpuscular 90.0 Volume Mean Corpuscular 29.4 Hemoglobin Mean Corpuscular 32.6 Hemoglobin Concent Red Cell 13.1 Distribution Width Platelet Count 202 Mean Platelet Volume 11.4 H Immature 0.400 Granulocytes % Neutrophils % 53.5 Lymphocytes % 33.7 Monocytes % 8.9 Eosinophils % 3.1 Basophils % 0.4 Nucleated Red Blood 0.0 Cells % Immature 0.030 Granulocytes # Neutrophils # 4.1 Lymphocytes # 2.6 Monocytes # 0.7 Eosinophils # 0.2 Basophils # 0.0 Nucleated Red Blood 0.0 Cells # Sodium Level 146 H Potassium Level 4.3 Chloride Level 109 Carbon Dioxide Level 25 Anion Gap 12 Blood Urea Nitrogen 24 H Creatinine 1.11 Est Glomerular > 60 Filtrat Rate mL/min Glucose Level 149 # Hemoglobin A1c 7.4 H Calcium Level 9.5 Phosphorus Level 3.8 Magnesium Level 2.0 Lab Scanned Report LAB Test 09/23/18 12:04 Bedside Glucose 168 Imaging Imaging ECG demonstrates sinus rhythm at 66 bpm, anterolateral Q waves, no significant ischemic ST abnormalities Medications Medications Current Medications Sodium Chloride 1,000 ml @ 100 mls/hr Q10H IV Last administered on 09/23/18at 12:06; Admin Dose 100 MLS/HR; Start 09/22/18 at 16:28 IV Flush (NS 3 ml) 3 ml PER PROTOCOL IV ; Start 09/22/18 at 16:30 Ondansetron HCl (Zofran Inj) 4 mg Q6H PRN IV NAUSEA/VOMITING; Start 09/22/18 at 16:30 Acetaminophen (Tylenol Tab) 650 mg Q6H PRN PO .PAIN 1-3 OR TEMP; Start 09/22/18 at 16:30 Morphine Sulfate (morphine) 2 mg Q4H PRN IV .SEVERE PAIN 7-10; Start 09/22/18 at 16:30 Docusate Sodium (Colace) 100 mg Q12H PRN PO .CONSTIPATION Last administered on 09/23/18at 08:52; Admin Dose 100 MG; Start 09/22/18 at 16:30 Zolpidem Tartrate (Ambien) 5 mg QHS PRN PO .INSOMNIA; Start 09/22/18 at 16:30 Aspirin (Aspirin) 81 mg DAILY PO Last administered on 09/23/18 08:52; Admin Dose 81 MG; Start 09/23/18 at 09:00 Atorvastatin Calcium (Lipitor) 20 mg QHS PO Last administered on 09/22/18 20:57; Admin Dose 20 MG; Start 09/22/18 at 21:00 Carvedilol (Coreg) 6.25 mg BID PO Last administered on 09/23/18 08:52; Admin Dose 6.25 MG; Start 09/22/18 at 21:00 Fluvoxamine Maleate (Luvox) 50 mg TID PO Last administered on 09/23/18 12:06; Admin Dose 50 MG; Start 09/22/18 at 21:00 Insulin Aspart (Novolog Insulin Pen) 8 unit WITH MEALS SC Last administered on 09/23/18 12:09; Admin Dose 8 UNIT; Start 09/22/18 at 18:00 Insulin Glargine (Lantus) 22 units DAILY SC Last administered on 09/23/18 08:05; Admin Dose 22 UNITS; Start 09/23/18 at 09:00 Mirtazapine (Remeron) 7.5 mg HS PO Last administered on 09/22/18 20:57; Admin Dose 7.5 MG; Start 09/22/18 at 21:00 Tamsulosin HCl (Flomax) 0.4 mg HS PO Last administered on 09/22/18 20:56; Adm in Dose 0.4 MG; Start 09/22/18 at 21:00 Diagnostic Test (Pha) (Accu-Chek) 1 ea 02 XX ; Start 09/23/18 at 02:00 Insulin Aspart (Novolog Insulin Pen) NOVOLOG *MILD* ALGORITHM WITH MEALS BEDTIME SC Last administered on 09/23/18 12:10; Admin Dose 1 UNIT; Start 09/22/18 at 18:00 Meclizine HCl (Antivert) 25 mg TID PRN PO DIZZINESS Last administered on 09/23/18 12:06; Admin Dose 25 MG; Start 09/22/18 at 16:30 Miscellaneous Information 1 ea NOTE XX ; Start 09/22/18 at 18:00 Glucose (Glutose) 15 gm Q15M PRN PO DECREASED GLUCOSE; Start 09/22/18 at 18:00 Glucose (Glutose) 22.5 gm Q15M PRN PO DECREASED GLUCOSE; Start 09/22/18 at 18:00 Dextrose (D50w Syringe) 25 ml Q15M PRN IV DECREASED GLUCOSE; Start 09/22/18 at 18:00 Dextrose (D50w Syringe) 50 ml Q15M PRN IV DECREASED GLUCOSE; Start 09/22/18 at 18:00 Glucagon (Glucagen) 1 mg Q15M PRN IM DECREASED GLUCOSE; Start 09/22/18 at 18:00 Glucose (Glutose) 15 gm Q15M PRN BUCCAL DECREASED GLUCOSE; Start 09/22/18 at 18:00 Obi Haji DO Sep 23, 2018 16:29
[2018-09-23] MEDS: ATORVASTATIN 20 MG TAB PO SCH (20:31)
[2018-09-23] MEDS: TAMSULOSIN (SR) 0.4 MG CAP PO SCH (20:31)
[2018-09-23] MEDS: MIRTAZAPINE 15 MG TAB PO SCH (20:32)
[2018-09-24] VITALS (9 sets, daily range): BP systolic 107–156; BP diastolic 58–75; PULSE 56–81; RESP 19–24
[2018-09-24] MEDS: ACCU-CHEK XX SCH (02:00)
[2018-09-24] MEDS: MECLIZINE 25 MG TAB PO PRN ×2 (02:37→17:32)
[2018-09-24] MEDS: SOD CHLORIDE 0.9% 1,000 ML IV SCH ×2 (07:00→18:46)
[2018-09-24] MEDS: INSULIN ASPART [NOVOLOG] 3 ML PEN SC SCH ×7 (08:41→21:00)
[2018-09-24] MEDS: INSULIN GLARGINE [LANTus] (100 UNITS/ML) SYG SC SCH (08:46)
[2018-09-24] MEDS: FLUVOXAMINE 50 MG TAB PO SCH ×3 (08:47→21:09)
[2018-09-24] MEDS: ASPIRIN 81 MG TAB PO SCH (08:47)
--- NOTE | 2018-09-24 14:10 | CONS ---
Assessment/Plan Assessment/Plan Hospital Course (Demo Recall) Dizziness, improving Hypertension Preserved ejection fraction Diabetes Psychiatric disorder Nuclear cardiac perfusion study small infarct no ischemia in May 2018 -Patient feeling better with less dizziness, still present with head movements but improving. -Telemetry with no significant arrhythmias. Blood pressure trend overall stable. Consultation Date/Type/Reason Admit Date/Time Sep 22, 2018 at 13:41 Initial Consult Date Type of Consult Cardiology Date/Time of Note DATE: 09/24/18 TIME: 14:07 24 HR Interval Summary Free Text/Dictation Feeling better, less dizziness. Denies shortness of breath, chest pain Exam/Review of Systems Vital Signs Vitals Vital Signs Date Temp Pulse Resp B/P (MAP) Pulse Ox O2 O2 Flow FiO2 Time Delivery Rate 09/24/18 81 12:00 09/24/18 98.0 20 121/63 98 Room Air 11:15 (82) Intake and Output 09/23/18 09/23/18 09/24/18 1515:00 23:00 07:00 IntakeIntake Total 2200 ml 1400 ml OutputOutput Total 1000 ml 350 ml BalanceBalance 1200 ml 1050 ml Exam Constitutional: alert, oriented (No apparent distress) Head: normocephalic Respiratory: other (Coarse breath sounds bilaterally, no wheezing) Cardiovascular: regular rate and rhythm (S1-S2 heard) Gastrointestinal: soft, non-tender, bowel sounds Extremities: other (No significant edema) Labs Result Diagram: 09/24/18 0516 09/24/18 0516 Results 24hrs Laboratory Tests Test 09/23/18 17:11 09/23/18 20:17 09/24/18 05:16 09/24/18 08:39 Bedside Glucose 113 145 147 White Blood Count 8.3 Red Blood Count 4.16 L Hemoglobin 12.1 L Hematocrit 36.9 L Mean Corpuscular 88.7 Volume Mean Corpuscular 29.1 Hemoglobin Mean Corpuscular 32.8 Hemoglobin Concent Red Cell 12.7 Distribution Width Platelet Count 191 Mean Platelet Volume 10.7 H Immature 0.400 Granulocytes % Neutrophils % 55.4 Lymphocytes % 32.5 Monocytes % 8.6 Eosinophils % 2.9 Basophils % 0.2 Nucleated Red Blood 0.0 Cells % Immature 0.030 Granulocytes # Neutrophils # 4.6 Lymphocytes # 2.7 Monocytes # 0.7 Eosinophils # 0.2 Basophils # 0.0 Nucleated Red Blood 0.0 Cells # Sodium Level 142 Potassium Level 4.1 Chloride Level 111 H Carbon Dioxide Level 24 Anion Gap 7 Blood Urea Nitrogen 20 Creatinine 1.20 Est Glomerular > 60 Filtrat Rate mL/min Glucose Level 134 Calcium Level 9.4 Test 09/24/18 12:42 Bedside Glucose 177 Medications Medications Current Medications Sodium Chloride 1,000 ml @ 100 mls/hr Q10H IV Last administered on 09/24/18 07:00; Admin Dose 100 MLS/HR; Start 09/22/18 at 16:28 IV Flush (NS 3 ml) 3 ml PER PROTOCOL IV ; Start 09/22/18 at 16:30 Ondansetron HCl (Zofran Inj) 4 mg Q6H PRN IV NAUSEA/VOMITING Last administered on 09/24/18 02:40; Admin Dose 4 MG; Start 09/22/18 at 16:30 Acetaminophen (Tylenol Tab) 650 mg Q6H PRN PO .PAIN 1-3 OR TEMP; Start 09/22/18 at 16:30 Morphine Sulfate (morphine) 2 mg Q4H PRN IV .SEVERE PAIN 7-10; Start 09/22/18 at 16:30 Docusate Sodium (Colace) 100 mg Q12H PRN PO .CONSTIPATION Last administered on 09/23/18 08:52; Admin Dose 100 MG; Start 09/22/18 at 16:30 Zolpidem Tartrate (Ambien) 5 mg QHS PRN PO .INSOMNIA; Start 09/22/18 at 16:30 Aspirin (Aspirin) 81 mg DAILY PO Last administered on 09/24/18 08:47; Admin Dose 81 MG; Start 09/23/18 at 09:00 Atorvastatin Calcium (Lipitor) 20 mg QHS PO Last administered on 09/23/18 20:31; Admin Dose 20 MG; Start 09/22/18 at 21:00 Carvedilol (Coreg) 6.25 mg BID PO Last administered on 09/24/18 08:46; Admin Dose 6.25 MG; Start 09/22/18 at 21:00 Fluvoxamine Maleate (Luvox) 50 mg TID PO Last administered on 09/24/18 12:42; Admin Dose 50 MG; Start 09/22/18 at 21:00 Insulin Aspart (Novolog Insulin Pen) 8 unit WITH MEALS SC Last administered on 09/24/18 12:45; Admin Dose 8 UNIT; Start 09/22/18 at 18:00 Insulin Glargine (Lantus) 22 units DAILY SC Last administered on 09/24/18 08:46; Admin Dose 22 UNITS; Start 09/23/18 at 09:00 Mirtazapine (Remeron) 7.5 mg HS PO Last administered on 09/23/18at 20:32; Admin Dose 7.5 MG; Start 09/22/18 at 21:00 Tamsulosin HCl (Flomax) 0.4 mg HS PO Last administered on 09/23/18 20:31; Admin Dose 0.4 MG; Start 09/22/18 at 21:00 Diagnostic Test (Pha) (Accu-Chek) 1 ea 02 XX ; Start 09/23/18 at 02:00 Insulin Aspart (Novolog Insulin Pen) NOVOLOG *MILD* ALGORITHM WITH MEALS BEDTIME SC Last administered on 09/24/18 12:46; Admin Dose 1 UNIT; Start 09/22/18 at 18:00 Meclizine HCl (Antivert) 25 mg TID PRN PO DIZZINESS Last administered on 09/24/18 02:37; Admin Dose 25 MG; Start 09/22/18 at 16:30 Miscellaneous Information 1 ea NOTE XX ; Start 09/22/18 at 18:00 Glucose (Glutose) 15 gm Q15M PRN PO DECREASED GLUCOSE; Start 09/22/18 at 18:00 Glucose (Glutose) 22.5 gm Q15M PRN PO DECREASED GLUCOSE; Start 09/22/18 at 18:00 Dextrose (D50w Syringe) 25 ml Q15M PRN IV DECREASED GLUCOSE; Start 09/22/18 at 18:00 Dextrose (D50w Syringe) 50 ml Q15M PRN IV DECREASED GLUCOSE; Start 09/22/18 at 18:00 Glucagon (Glucagen) 1 mg Q15M PRN IM DECREASED GLUCOSE; Start 09/22/18 at 18:00 Glucose (Glutose) 15 gm Q15M PRN BUCCAL DECREASED GLUCOSE; Start 09/22/18 at 18:00 Obi Haji DO Sep 24, 2018 14:10
[2018-09-24] MEDS ORDERED: MECL-77 PO (14:57)
--- NOTE | 2018-09-24 15:04 | DS ---
Date/Time of Note Date/Time of Note DATE: 09/24/18 TIME: 15:00 Discharge Summary Admission/Discharge Info Admit Date/Time Sep 22, 2018 at 13:41 Discharge Date/Time Discharge Diagnosis 1. Benign positional vertigo, antivert prn 2. Depression, continue home meds 3. Diabetes, Continue home insulin regimen 4. HTN, controlled 5. Dyslipidemia, on statin Patient Condition: Stable Hospital Course 68-year-old male with a history of diabetes and major depression, patient presen ts with 2 days of dizziness exacerbated by movement of the head. CT head unremarkable except atrophy. Patient is treated with meclizine for positional vertigo, symptoms improved. He will be discharged on meclizine prn and follow up with PCP in one week. Home Meds Active Scripts Meclizine Hcl* (Meclizine Hcl*) 25 Mg Tablet, 25 MG PO Q8H PRN for DIZZINESS, #20 TAB Prov:SHELIA SANCHEZ MD 09/24/18 Insulin Aspart* (Novolog Insulin Pen*) 100 Unit/Ml Soln, 8 UNIT SC WITH MEALS, #30 DAYSX 3 28 Prov:RUCHI SIDHU MD 06/25/18 Aspirin (Aspirin) 81 Mg Chew, 81 MG PO DAILY, #30 TAB Prov:SMITA ORTEGA NP 05/02/18 Carvedilol* (Carvedilol*) 6.25 Mg Tablet, 6.25 MG PO BID, #60 TAB Prov:SMITA ORTEGA NP 05/02/18 Atorvastatin Calcium (Atorvastatin Calcium) 20 Mg Tablet, 20 MG PO HS, #30 TAB Prov:SMITA ORTEGA NP 05/02/18 Reported Medications Mirtazapine* (Mirtazapine*) 7.5 Mg Tablet, 7.5 MG PO HS, TAB 09/22/18 Tamsulosin Hcl* (Flomax*) 0.4 Mg Cap.er.24h, 0.4 MG PO HS, CAP 09/22/18 Atorvastatin Calcium* (Atorvastatin Calcium*) 20 Mg Tablet, 20 MG PO QHS, #30 TAB 09/22/18 Fluvoxamine Maleate* (Luvox*) 50 Mg Tab, 50 MG PO TID, TAB 09/22/18 Insulin Glargine* (Lantus*) 100 Unit/Ml Soln, 22 UNIT SC DAILY, #1 VIAL 09/22/18 Glipizide* (Glipizide*) 10 Mg Tablet, 10 MG PO BID, TAB 11/24/14 Discontinued Reported Medications Metoprolol Tartrate* (Lopressor*) 100 Mg Tablet, 100 MG PO BID, #60 TAB 05/27/18 Zolpidem Tartrate* (Zolpidem Tartrate*) 10 Mg Tablet, 10 MG PO QHS PRN for INSOMNIA, #30 TAB 05/01/18 Mirtazapine* (Mirtazapine*) 15 Mg Tablet, 15 MG PO HS, TAB 05/01/18 Metformin* (Glucophage*) 500 Mg Tab, 500 MG PO BID, TAB 11/24/14 Discontinued Scripts Aripiprazole* (Abilify*) 2 Mg Tablet, 2 MG PO DAILY, #30 TAB Prov:RUCHI SIDHU MD 06/25/18 Lamotrigine* (Lamotrigine*) 25 Mg Tablet, 25 MG PO BID, #30 TAB Prov:RUCHI SIDHU MD 06/25/18 [Insulin Glargine] 100 UNITS/ML SOLN No Conflict Check, 22 UNITS SC DAILY@0800 Prov:RUCHI SIDHU MD 06/25/18 Losartan Potassium* (Cozaar*) 50 Mg Tablet, 50 MG PO BID, #60 TAB Prov:SMITA ORTEGA NP 05/02/18 Follow-up Plan PCP in one week Primary Care Provider Shelton Oliver Pending Labs Laboratory Tests Test 09/23/18 17:11 09/23/18 20:17 09/24/18 05:16 09/24/18 08:39 Bedside 113 145 147 Glucose mg/dL (70-220) mg/dL (70-220) mg/dL (70-220) White Blood 8.3 Count 10^3/ul (4.8-1 0.8) Red Blood 4.16 Count 10^6/ul (4.70- 6.10) Hemoglobin 12.1 g/dl (14.0-18. 0) Hematocrit 36.9 % (42.0-52.0) Mean 88.7 Corpuscular fl (82.0-101.0 Volume ) Mean 29.1 Corpuscular pg (29.0-33.0) Hemoglobin Mean 32.8 Corpuscular g/dl (32.0-37. Hemoglobin Conc 0) ent Red Cell 12.7 Distribution % (11.5-14.5) Width Platelet Count 191 10^3/UL (140-4 15) Mean Platelet 10.7 Volume fl (7.4-10.4) Immature 0.400 Granulocytes % % (0.001-0.429 ) Neutrophils % 55.4 % (39.0-77.0) Lymphocytes % 32.5 % (15.0-51.0) Monocytes % 8.6 % (0.0-11.0) Eosinophils % 2.9 % (0.0-7.0) Basophils % 0.2 % (0.0-2.0) Nucleated Red 0.0 Blood Cells % /100WBC (0.0-0 .0) Immature 0.030 Granulocytes # 10^3/ul (0.0-0 .031) Neutrophils # 4.6 10^3/ul (1.6-7 .5) Lymphocytes # 2.7 10^3/ul (0.8-2 .9) Monocytes # 0.7 10^3/ul (0.3-0 .9) Eosinophils # 0.2 10^3/ul (0.0-0 .5) Basophils # 0.0 10^3/ul (0.0-0 .1) Nucleated Red 0.0 Blood Cells # 10^3/ul (0.0-0 .0) Sodium Level 142 mmol/L (135-14 4) Potassium 4.1 Level mmol/L (3.5-5. 1) Chloride Level 111 mmol/L (97-110 ) Carbon Dioxide 24 Level mmol/L (21-31) Anion Gap 7 (5-13) Blood Urea 20 Nitrogen mg/dl (7-20) Creatinine 1.20 mg/dl (0.61-1. 24) Est Glomerular > 60 Filtrat mL/min (>60) Rate mL/min Glucose Level 134 mg/dl (70-220) Calcium Level 9.4 mg/dl (8.4-10. 2) Test 09/24/18 12:42 Bedside 177 Glucose mg/dL (70-220) SHELIA SANCHEZ MD Sep 24, 2018 15:04
[2018-09-24] MEDS: ATORVASTATIN 20 MG TAB PO SCH (21:08)
[2018-09-24] MEDS: TAMSULOSIN (SR) 0.4 MG CAP PO SCH (21:09)
[2018-09-24] MEDS: MIRTAZAPINE 15 MG TAB PO SCH (21:10)
[2018-09-25] VITALS: BP 126/71; PULSE 64; RESP 19
[2018-09-25] MEDS: ACCU-CHEK XX SCH (01:49)
[2018-09-25 01:56] VITALS: BP 130/74; PULSE 67; RESP 18
[2018-09-25] MEDS: SOD CHLORIDE 0.9% 1,000 ML IV SCH ×2 (04:51→15:28)
[2018-09-25 07:30] VITALS: BP 121/58; PULSE 60; RESP 16
[2018-09-25 07:48] VITALS: BP 125/64; PULSE 81; RESP 18
[2018-09-25] MEDS: ASPIRIN 81 MG TAB PO SCH (09:00)
[2018-09-25] MEDS: INSULIN ASPART [NOVOLOG] 3 ML PEN SC SCH ×6 (09:01→18:00)
[2018-09-25] MEDS: DOCUSATE SODIUM 100 MG CAP PO PRN (09:04)
[2018-09-25] MEDS: MECLIZINE 25 MG TAB PO PRN (09:09)
[2018-09-25] MEDS: FLUVOXAMINE 50 MG TAB PO SCH ×2 (10:43→13:15)
[2018-09-25] MEDS: INSULIN GLARGINE [LANTus] (100 UNITS/ML) SYG SC SCH (10:43)
[2018-09-25 14:20] VITALS: BP 128/65; PULSE 66; RESP 16
--- NOTE | 2018-09-25 15:09 | CONS ---
Assessment/Plan Assessment/Plan Hospital Course (Demo Recall) Dizziness, improving Hypertension Preserved ejection fraction Diabetes Psychiatric disorder Nuclear cardiac perfusion study small infarct no ischemia in May 2018 -Patient feeling better with less dizziness, still present with head movements but improving. -Blood pressure trend overall stable. -DC planning Consultation Date/Type/Reason Admit Date/Time Sep 25, 2018 at 12:39 Initial Consult Date Type of Consult Cardiology Date/Time of Note DATE: 09/25/18 TIME: 15:08 24 HR Interval Summary Free Text/Dictation Feeling better, less dizziness with standing up or with head movements. Denies shortness of breath, chest pain Exam/Review of Systems Vital Signs Vitals Vital Signs Date Temp Pulse Resp B/P (MAP) Pulse Ox O2 O2 Flow FiO2 Time Delivery Rate 09/25/18 97.7 66 16 128/65 98 Room Air 14:20 (86) Intake and Output 09/24/18 09/24/18 09/25/18 1515:00 23:00 07:00 IntakeIntake Total 1880 ml 1000 ml OutputOutput Total 950 ml BalanceBalance 930 ml 1000 ml Exam Constitutional: alert, oriented (No apparent distress) Head: normocephalic Respiratory: other (Coarse breath sounds bilaterally, no wheezing) Cardiovascular: regular rate and rhythm (S1-S2 heard) Gastrointestinal: soft, non-tender, bowel sounds Extremities: other (No significant edema) Labs Result Diagram: 09/24/18 0516 09/24/18 0516 Results 24hrs Laboratory Tests Test 09/24/18 17:28 09/24/18 20:45 09/25/18 07:53 09/25/18 12:16 Bedside Glucose 109 172 142 169 Medications Medications Current Medications Sodium Chloride 1,000 ml @ 100 mls/hr Q10H IV Last administered on 09/25/18at 04:51; Admin Dose 100 MLS/HR; Start 09/22/18 at 16:28 IV Flush (NS 3 ml) 3 ml PER PROTOCOL IV ; Start 09/22/18 at 16:30 Ondansetron HCl (Zofran Inj) 4 mg Q6H PRN IV NAUSEA/VOMITING Last administered on 09/24/18at 02:40; Admin Dose 4 MG; Start 09/22/18 at 16:30 Acetaminophen (Tylenol Tab) 650 mg Q6H PRN PO .PAIN 1-3 OR TEMP; Start 09/22/18 at 16:30 Morphine Sulfate (morphine) 2 mg Q4H PRN IV .SEVERE PAIN 7-10; Start 09/22/18 at 16:30 Docusate Sodium (Colace) 100 mg Q12H PRN PO .CONSTIPATION Last administered on 09/25/18 09:04; Admin Dose 100 MG; Start 09/22/18 at 16:30 Zolpidem Tartrate (Ambien) 5 mg QHS PRN PO .INSOMNIA; Start 09/22/18 at 16:30 Aspirin (Aspirin) 81 mg DAILY PO Last administered on 09/24/18 08:47; Admin Dose 81 MG; Start 09/23/18 at 09:00 Atorvastatin Calcium (Lipitor) 20 mg QHS PO Last administered on 09/24/18 21:08; Admin Dose 20 MG; Start 09/22/18 at 21:00 Carvedilol (Coreg) 6.25 mg BID PO Last administered on 09/25/18 08:57; Admin Dose 6.25 MG; Start 09/22/18 at 21:00 Fluvoxamine Maleate (Luvox) 50 mg TID PO Last administered on 09/25/18 13:15; Admin Dose 50 MG; Start 09/22/18 at 21:00 Insulin Aspart (Novolog Insulin Pen) 8 unit WITH MEALS SC Last administered on 09/25/18 12:17; Admin Dose 8 UNIT; Start 09/22/18 at 18:00 Insulin Glargine (Lantus) 22 units DAILY SC Last administered on 09/25/18 10:43; Admin Dose 22 UNITS; Start 09/23/18 at 09:00 Mirtazapine (Remeron) 7.5 mg HS PO Last administered on 09/24/18 21:10; Admin Dose 7.5 MG; Start 09/22/18 at 21:00 Tamsulosin HCl (Flomax) 0.4 mg HS PO Last administered on 09/24/18 21:09; Admin Dose 0.4 MG; Start 09/22/18 at 21:00 Diagnostic Test (Pha) (Accu-Chek) 1 ea 02 XX ; Start 09/23/18 at 02:00 Insulin Aspart (Novolog Insulin Pen) NOVOLOG *MILD* ALGORITHM WITH MEALS BEDTIME SC Last administered on 09/25/18at 12:18; Admin Dose 1 UNIT; Start 09/22/18 at 18:00 Meclizine HCl (Antivert) 25 mg TID PRN PO DIZZINESS Last administered on 09/25/18at 09:09; Admin Dose 25 MG; Start 09/22/18 at 16:30 Miscellaneous Information 1 ea NOTE XX ; Start 09/22/18 at 18:00 Glucose (Glutose) 15 gm Q15M PRN PO DECREASED GLUCOSE; Start 09/22/18 at 18:00 Glucose (Glutose) 22.5 gm Q15M PRN PO DECREASED GLUCOSE; Start 09/22/18 at 18:00 Dextrose (D50w Syringe) 25 ml Q15M PRN IV DECREASED GLUCOSE; Start 09/22/18 at 18:00 Dextrose (D50w Syringe) 50 ml Q15M PRN IV DECREASED GLUCOSE; Start 09/22/18 at 18:00 Glucagon (Glucagen) 1 mg Q15M PRN IM DECREASED GLUCOSE; Start 09/22/18 at 18:00 Glucose (Glutose) 15 gm Q15M PRN BUCCAL DECREASED GLUCOSE; Start 09/22/18 at 18:00 Obi Haji DO Sep 25, 2018 15:09
--- NOTE | 2018-09-25 15:11 | DS ---
Date/Time of Note Date/Time of Note DATE: 09/25/18 TIME: 15:10 Discharge Summary Admission/Discharge Info Admit Date/Time Sep 25, 2018 at 12:39 Discharge Date/Time Discharge Diagnosis 1. Benign positional vertigo, antivert prn 2. Depression, continue home meds 3. Diabetes, Continue home insulin regimen 4. HTN, controlled 5. Dyslipidemia, on statin Patient Condition: Stable Hospital Course 68-year-old male with a history of diabetes and major depression, patient presen ts with 2 days of dizziness exacerbated by movement of the head. CT head unremarkable except atrophy. Patient is treated with meclizine for positional vertigo, symptoms improved. He will be discharged on meclizine prn and follow up with PCP in one week. Patient has unsteady gait, needs assistance for walking. I will transfer him to SNF or ARU for rehab. Patient lives at home by himself, not safe to go home at this time. Home Meds Active Scripts Meclizine Hcl* (Meclizine Hcl*) 25 Mg Tablet, 25 MG PO Q8H PRN for DIZZINESS, #20 TAB Prov:SHELIA SANCHEZ MD 09/24/18 Insulin Aspart* (Novolog Insulin Pen*) 100 Unit/Ml Soln, 8 UNIT SC WITH MEALS, #30 DAYSX 3 28 Prov:RUCHI SIDHU MD 06/25/18 Aspirin (Aspirin) 81 Mg Chew, 81 MG PO DAILY, #30 TAB Prov:SMITA ORTEGA NP 05/02/18 Carvedilol* (Carvedilol*) 6.25 Mg Tablet, 6.25 MG PO BID, #60 TAB Prov:SMITA ORTEGA NP 05/02/18 Atorvastatin Calcium (Atorvastatin Calcium) 20 Mg Tablet, 20 MG PO HS, #30 TAB Prov:SMITA ORTEGA NP 05/02/18 Reported Medications Mirtazapine* (Mirtazapine*) 7.5 Mg Tablet, 7.5 MG PO HS, TAB 09/22/18 Tamsulosin Hcl* (Flomax*) 0.4 Mg Cap.er.24h, 0.4 MG PO HS, CAP 09/22/18 Atorvastatin Calcium* (Atorvastatin Calcium*) 20 Mg Tablet, 20 MG PO QHS, #30 TAB 09/22/18 Fluvoxamine Maleate* (Luvox*) 50 Mg Tab, 50 MG PO TID, TAB 09/22/18 Insulin Glargine* (Lantus*) 100 Unit/Ml Soln, 22 UNIT SC DAILY, #1 VIAL 09/22/18 Glipizide* (Glipizide*) 10 Mg Tablet, 10 MG PO BID, TAB 11/24/14 Discontinued Reported Medications Metoprolol Tartrate* (Lopressor*) 100 Mg Tablet, 100 MG PO BID, #60 TAB 05/27/18 Zolpidem Tartrate* (Zolpidem Tartrate*) 10 Mg Tablet, 10 MG PO QHS PRN for INSOMNIA, #30 TAB 05/01/18 Mirtazapine* (Mirtazapine*) 15 Mg Tablet, 15 MG PO HS, TAB 05/01/18 Metformin* (Glucophage*) 500 Mg Tab, 500 MG PO BID, TAB 11/24/14 Discontinued Scripts Aripiprazole* (Abilify*) 2 Mg Tablet, 2 MG PO DAILY, #30 TAB Prov:RUCHI SIDHU MD 06/25/18 Lamotrigine* (Lamotrigine*) 25 Mg Tablet, 25 MG PO BID, #30 TAB Prov:RUCHI SIDHU MD 06/25/18 [Insulin Glargine] 100 UNITS/ML SOLN No Conflict Check, 22 UNITS SC DAILY@0800 Prov:RUCHI SIDHU MD 06/25/18 Losartan Potassium* (Cozaar*) 50 Mg Tablet, 50 MG PO BID, #60 TAB Prov:SMITA ORTEGA NP 05/02/18 Follow-up Plan PCP in one week Primary Care Provider Shelton Oliver Pending Labs Laboratory Tests Test 09/24/18 17:28 09/24/18 20:45 09/25/18 07:53 09/25/18 12:16 Bedside 109 172 142 169 Glucose mg/dL (70-220) mg/dL (70-220) mg/dL (70-220) mg/dL (70-220) SHELIA SANCHEZ MD Sep 25, 2018 15:11
== END 2018-09-25 18:50 | DRG 149 ==
LOC: E/R 11:00 → 6WM 13:41 → PP2 09-25 02:00 → OBSVTOIN 09-25 12:39
PROVIDERS: ADMIT Internal Medicine; ATTEND Internal Medicine
DX: H81.10 Benign paroxysmal vertigo, unspecified ear (principal); F32.9 Major depressive disorder, single episode, unspecified; E11.9 Type 2 diabetes mellitus without complications; I10 Essential (primary) hypertension; E78.5 Hyperlipidemia, unspecified
CPT/HCPCS: 36415; 70450; 80048; 82962; 83036; 83735; 84100; 84484; 85025; 85610; 85730; 93005; 97161; 97164; G0378; J1815; J2405; J7030

== ENCOUNTER 2018-09-25 18:54 | Inpatient (IN) | payer MEDICARE, BC ==
[~2018-09-25] VITALS: Ht 185.4 cm; Wt 115.8 kg
[~2018-09-25 18:54] MED LIST changes: -ARIP2TAB17 PO; +ATOR20TA38 PO; +BLVX50T PO; -Insulin Glargine SC; -LAMO25TA PO; +LANT3I SC; -LOSA50TA2 PO; +MECL-77 PO; -METF-849 PO; -METO-407 PO; -MIRT15TA5 PO; +MIRT7.5T8 PO; +TAMS-14 PO; -ZOLP10TA5 PO
[2018-09-25 19:20] VITALS: BP 162/82; PULSE 73; RESP 18
[2018-09-25 20:00] VITALS: Ht 185.4 cm; Wt 115.8 kg
[2018-09-25] MEDS ORDERED: GLUCOSE GEL 15 GRAM TUBE BUCCAL PRN (20:30)
[2018-09-25] MEDS ORDERED: GLUCOSE GEL 15 GRAM TUBE PO PRN ×2 (20:30)
[2018-09-25] MEDS ORDERED: DEXTROSE 50% 50 ML SYRINGE IV PRN ×2 (20:30)
[2018-09-25] MEDS ORDERED: ACETAMINOPHEN 325 MG TAB PO PRN (20:30)
[2018-09-25] MEDS ORDERED: GLUCAGON 1 MG INJ IM PRN (20:30)
[2018-09-25] MEDS ORDERED: DOCUSATE SODIUM 100 MG CAP PO PRN (20:30)
[2018-09-25] MEDS ORDERED: BISACODYL 10 MG SUPP PR PRN (21:00)
[2018-09-25] MEDS: INSULIN ASPART [NOVOLOG] 3 ML PEN SC SCH (21:00)
[2018-09-25] MEDS ORDERED: LACTULOSE 30ML CUP PO PRN (21:00)
[2018-09-25] MEDS ORDERED: MAGNESIUM HYDROXIDE 30ML CUP PO PRN (21:00)
[2018-09-25 21:15] VITALS: BP 144/68; PULSE 66; RESP 18
[2018-09-25] MEDS: DOCUSATE SODIUM 100 MG CAP PO SCH (21:32)
[2018-09-25] MEDS: ATORVASTATIN 20 MG TAB PO SCH (21:33)
[2018-09-25] MEDS: TAMSULOSIN (SR) 0.4 MG CAP PO SCH (21:33)
[2018-09-25] MEDS: MIRTAZAPINE 15 MG TAB PO SCH (21:33)
[2018-09-25] MEDS: SENNA TAB PO SCH (21:33)
[2018-09-25] MEDS: FLUVOXAMINE 50 MG TAB PO SCH (21:34)
[2018-09-26 02:00] VITALS: BP 137/66; PULSE 64; RESP 16
[2018-09-26] MEDS: ACCU-CHEK XX SCH (02:00)
[2018-09-26] MEDS: INSULIN ASPART [NOVOLOG] 3 ML PEN SC SCH ×7 (07:35→20:31)
[2018-09-26] MEDS: INSULIN GLARGINE [LANTus] (100 UNITS/ML) SYG SC SCH (07:41)
[2018-09-26 07:50] VITALS: BP 138/70; PULSE 70; RESP 18
[2018-09-26] MEDS: FLUVOXAMINE 50 MG TAB PO SCH ×3 (08:06→20:24)
[2018-09-26] MEDS: DOCUSATE SODIUM 100 MG CAP PO SCH ×2 (08:06→20:31)
[2018-09-26] MEDS: MECLIZINE 25 MG TAB PO PRN (08:11)
[2018-09-26] MEDS: ASPIRIN 81 MG TAB PO SCH (08:11)
--- NOTE | 2018-09-26 11:43 | CONS ---
Assessment/Plan Assessment/Plan Hospital Course (Demo Recall) Dizziness, improving Hypertension Preserved ejection fraction Diabetes Psychiatric disorder Nuclear cardiac perfusion study small infarct no ischemia in May 2018 -Patient feeling better with less dizziness unable to tolerate more activity -Blood pressure trend overall stable. -New therapy as tolerated Consultation Date/Type/Reason Admit Date/Time Sep 25, 2018 at 18:57 Initial Consult Date Type of Consult Cardiology Date/Time of Note DATE: 09/26/18 TIME: 11:42 24 HR Interval Summary Free Text/Dictation Feeling better. Denies shortness of breath, chest pain. Less dizziness with activity Exam/Review of Systems Vital Signs Vitals Vital Signs Date Temp Pulse Resp B/P (MAP) Pulse Ox O2 O2 Flow FiO2 Time Delivery Rate 09/26/18 98.5 70 18 138/70 100 Room Air 07:50 (92) Intake and Output 09/25/18 09/25/18 09/26/18 1515:00 23:00 07:00 IntakeIntake Total 300 ml OutputOutput Total 200 ml 900 ml BalanceBalance -200 ml -600 ml Exam Constitutional: alert, oriented (No apparent distress) Head: normocephalic Respiratory: clear to auscultation, normal air movement Cardiovascular: regular rate and rhythm (S1-S2 heard) Gastrointestinal: soft, non-tender, bowel sounds Extremities: other (No significant edema) Labs Result Diagram: 09/26/18 0712 09/26/18 0712 Results 24hrs Laboratory Tests Test 09/25/18 19:45 09/25/18 21:31 09/26/18 07:12 09/26/18 07:34 Urine Color YELLOW Urine Clarity CLEAR Urine pH 5.0 Urine Specific 1.016 [place] Urine Ketones NEGATIVE Urine Nitrite NEGATIVE Urine Bilirubin NEGATIVE Urine Urobilinogen NEGATIVE Urine Leukocyte NEGATIVE Esterase Urine Hemoglobin NEGATIVE Urine Glucose NEGATIVE Urine Total Protein NEGATIVE Bedside Glucose 155 99 White Blood Count 8.5 Red Blood Count 4.18 L Hemoglobin 12.2 L Hematocrit 36.5 L Mean Corpuscular 87.3 Volume Mean Corpuscular 29.2 Hemoglobin Mean Corpuscular 33.4 Hemoglobin Concent Red Cell 12.8 Distribution Width Platelet Count 175 Mean Platelet Volume 11.1 H Immature 0.400 Granulocytes % Neutrophils % 59.4 Lymphocytes % 28.7 Monocytes % 8.3 Eosinophils % 2.8 Basophils % 0.4 Nucleated Red Blood 0.0 Cells % Immature 0.030 Granulocytes # Neutrophils # 5.1 Lymphocytes # 2.5 Monocytes # 0.7 Eosinophils # 0.2 Basophils # 0.0 Nucleated Red Blood 0.0 Cells # Sodium Level 143 Potassium Level 4.0 Chloride Level 109 Carbon Dioxide Level 24 Anion Gap 10 Blood Urea Nitrogen 14 Creatinine 0.98 Est Glomerular > 60 Filtrat Rate mL/min Glucose Level 98 Calcium Level 9.2 Total Bilirubin 0.4 Direct Bilirubin 0.00 Indirect Bilirubin 0.4 Aspartate Amino 18 Transf (AST/SGOT) Alanine 28 Aminotransferase (AL T/SGPT) Alkaline Phosphatase 89 Total Protein 6.2 Albumin 3.4 Globulin 2.80 Albumin/Globulin 1.21 Ratio Medications Medications Current Medications Diagnostic Test (Pha) (Accu-Chek) XX ; Start 09/26/18 at 02:00 Acetaminophen (Tylenol Tab) 650 mg Q6H PRN PO .PAIN 1-3 OR TEMP; Start 09/25/18 at 20:30 Aspirin (Aspirin) 81 mg DAILY PO Last administered on 09/26/18at 08:11; Admin Dose 81 MG; Start 09/26/18 at 09:00 Atorvastatin Calcium (Lipitor) 20 mg QHS PO Last administered on 09/25/18at 21:33; Admin Dose 20 MG; Start 09/25/18 at 21:00 Carvedilol (Coreg) 6.25 mg BID PO Last administered on 09/26/18at 08:08; Admin Dose 6.25 MG; Start 09/25/18 at 21:00 Docusate Sodium (Colace) 100 mg Q12H PRN PO .CONSTIPATION; Start 09/25/18 at 20:30 Fluvoxamine Maleate (Luvox) 50 mg TID PO Last administered on 09/26/18 08:06; Admin Dose 50 MG; Start 09/25/18 at 21:00 Insulin Aspart (Novolog Insulin Pen) NOVOLOG *MILD* ALGORITHM WITH MEALS BEDTIME SC ; Start 09/25/18 at 21:00 Insulin Aspart (Novolog Insulin Pen) 8 unit WITH MEALS SC Last administered on 09/26/18at 07:40; Admin Dose 8 UNIT; Start 09/26/18 at 07:35 Insulin Glargine (Lantus) 22 units DAILY SC Last administered on 09/26/18 07:41; Admin Dose 22 UNITS; Start 09/26/18 at 09:00 Meclizine HCl (Antivert) 25 mg TID PRN PO DIZZINESS Last administered on 09/26/18at 08:11; Admin Dose 25 MG; Start 09/25/18 at 20:30 Mirtazapine (Remeron) 7.5 mg HS PO Last administered on 09/25/18at 21:33; Admin Dose 7.5 MG; Start 09/25/18 at 21:00 Tamsulosin HCl (Flomax) 0.4 mg HS PO Last administered on 09/25/18at 21:33; Admin Dose 0.4 MG; Start 09/25/18 at 21:00 Miscellaneous Information 1 ea NOTE XX ; Start 09/25/18 at 20:30 Glucose (Glutose) 15 gm Q15M PRN PO DECREASED GLUCOSE; Start 09/25/18 at 20:30 Glucose (Glutose) 22.5 gm Q15M PRN PO DECREASED GLUCOSE; Start 09/25/18 at 20:30 Dextrose (D50w Syringe) 25 ml Q15M PRN IV DECREASED GLUCOSE; Start 09/25/18 at 20:30 Dextrose (D50w Syringe) 50 ml Q15M PRN IV DECREASED GLUCOSE; Start 09/25/18 at 20:30 Glucagon (Glucagen) 1 mg Q15M PRN IM DECREASED GLUCOSE; Start 09/25/18 at 20:30 Glucose (Glutose) 15 gm Q15M PRN BUCCAL DECREASED GLUCOSE; Start 09/25/18 at 20:30 Docusate Sodium (Colace) 100 mg BID PO Last administered on 09/26/18at 08:06; Admin Dose 100 MG; Start 09/25/18 at 21:00 Senna (Senokot) 1 tab HS PO Last administered on 09/25/18at 21:33; Admin Dose 1 TAB; Start 09/25/18 at 21:00 Magnesium Hydroxide (Milk Of Mag) 30 ml BID PRN PO CONSTIPATION Last administered on 09/26/18at 08:08; Admin Dose 30 ML; Start 09/25/18 at 21:00 Lactulose (Enulose) 20 gm DAILY PRN PO CONSTIPATION; Start 09/25/18 at 21:00 Bisacodyl (Dulcolax Supp) 10 mg DAILY PRN [place] CONSTIPATION; Start 3/28/19 at 21:00 Obi Haji DO Sep 26, 2018 11:43
[2018-09-26 13:06] VITALS: BP 107/54; PULSE 78; RESP 18
[2018-09-26] MEDS: CARBAMIDE PEROXIDE 6.5% 15ML OTIC BOTH EARS SCH ×2 (14:00→20:24)
--- NOTE | 2018-09-26 14:23 | HP ---
Date/Time of Note Date/Time of Note DATE: 09/26/18 TIME: 14:18 Assessment/Plan VTE Prophylaxis Risk score (from Ns)>0 risk: 3 SCD applied (from Ns): No SCD contraindicated: other Pharmacological prophylaxis: NA/contraindicated Pharm contraindication: low risk/ambulating Lines/Catheters [facility] [place] [facility] Urinary Cath still in place: No Assessment/Plan Hospital Course SUBJECTIVE: Sitting up in chair, no acute distress. OBJECTIVE: Vital signs-see below PHYSICAL EXAM: Constitutional: Well-developed, adequately built, lying in bed comfortably. Psych: nl mood/affect, no complaints Head: atraumatic, normocephalic Eyes: nl conjunctiva, nl sclera ENMT: mucosa pink and moist, nl external ears & nose Neck: non-tender, supple Respiratory: clear to auscultation, normal air movement Cardiovascular: nl pulses, regular rate and rhythm Gastrointestinal: non-tender, soft, bowel sounds active in all 4 quadrants. Musculoskeletal/extremities: nl extremities to inspection, motor strength equal bilaterally, no focal deficit. Normal pulses,no cyanosis, no edema. Neurological: Alert oriented 3,nl speech, nl strength Skin: nl turgor ASSESSMENT/PLAN: 68-year-old male with benign positional vertigo, hypertension, dyslipidemia, psychiatric disorders, diabetes, transferred to acute rehabilitation unit for further physical therapy following BPV. 1. Benign positional vertigo -continue PRN meclizine. -PT eval and treat-good participation and tolerance. 2. Depression -continue home meds 3. DMII -Stable glycemic trends - Continue insulin regimen 4. HTN -Controlled -Continue antihypertensives 5. Dyslipidemia - on statin 6. Chronic anemia, mild -Stable H&H. DVT prophylaxis: SCDs PUD prophylaxis: Not indicated CODE STATUS: Full code Carbohydrate controlled diet. Patient is medically stable for physical therapy designed for his diagnosis and acute rehabilitation unit. Approximately 60 minutes was spent on this history and physical. Patient was seen in collaboration with Dr. HARO Result Diagram: 09/26/18 0712 09/26/18 0712 Results 24hrs Laboratory Tests Test 09/25/18 19:45 09/25/18 21:31 09/26/18 07:12 09/26/18 07:34 Urine Color YELLOW Urine Clarity CLEAR Urine pH 5.0 Urine Specific 1.016 [place] Urine Ketones NEGATIVE Urine Nitrite NEGATIVE Urine Bilirubin NEGATIVE Urine Urobilinogen NEGATIVE Urine Leukocyte NEGATIVE Esterase Urine Hemoglobin NEGATIVE Urine Glucose NEGATIVE Urine Total Protein NEGATIVE Bedside Glucose 155 99 White Blood Count 8.5 Red Blood Count 4.18 L Hemoglobin 12.2 L Hematocrit 36.5 L Mean Corpuscular 87.3 Volume Mean Corpuscular 29.2 Hemoglobin Mean Corpuscular 33.4 Hemoglobin Concent Red Cell 12.8 Distribution Width Platelet Count 175 Mean Platelet Volume 11.1 H Immature 0.400 Granulocytes % Neutrophils % 59.4 Lymphocytes % 28.7 Monocytes % 8.3 Eosinophils % 2.8 Basophils % 0.4 Nucleated Red Blood 0.0 Cells % Immature 0.030 Granulocytes # Neutrophils # 5.1 Lymphocytes # 2.5 Monocytes # 0.7 Eosinophils # 0.2 Basophils # 0.0 Nucleated Red Blood 0.0 Cells # Sodium Level 143 Potassium Level 4.0 Chloride Level 109 Carbon Dioxide Level 24 Anion Gap 10 Blood Urea Nitrogen 14 Creatinine 0.98 Est Glomerular > 60 Filtrat Rate mL/min Glucose Level 98 Calcium Level 9.2 Total Bilirubin 0.4 Direct Bilirubin 0.00 Indirect Bilirubin 0.4 Aspartate Amino 18 Transf (AST/SGOT) Alanine 28 Aminotransferase (AL T/SGPT) Alkaline Phosphatase 89 Total Protein 6.2 Albumin 3.4 Globulin 2.80 Albumin/Globulin 1.21 Ratio Test 09/26/18 11:48 Bedside Glucose 143 HPI/ROS Admit Date/Time Admit Date/Time Sep 25, 2018 at 18:57 Hx of Present Illness This is a 68-year-old male with a history of diabetes, depression, dyslipidemia, hypertension, who was admitted at [facility] on 09/25/2018 with 2-day duration of dizziness exacerbated by movement of head. Patient was ruled out for any acute intracranial/cardiovascular events. Patient symptoms improved on meclizine. He also had associated tinnitus and most likely his symptoms were likely benign positional vertigo which responded to meclizine. Patient was then evaluated by physical therapist and discharged to acute rehabilitation unit on 09/26/2018 for further rehabilitation. At my encounter with the patient, he denied chest pain, palpitation, shortness of breath, nausea, vomiting, abdominal pain, loss of consciousness, numbness, tingling, or other constitutional symptoms. He had mild dizziness but had improved from before. He has been able to participate with physical therapy. Labs and vital signs stable. ROS A 12 point review of system was assessed and is negative other than what is mentioned in the HPI. PMH/Family/Social Past Medical History See HPI Medications Current Medications Diagnostic Test (Pha) (Accu-Chek) 1 XX ; Start 09/26/18 at 02:00 Acetaminophen (Tylenol Tab) 650 mg Q6H PRN PO .PAIN 1-3 OR TEMP; Start 09/25/18 at 20:30 Aspirin (Aspirin) 81 mg DAILY PO Last administered on 09/26/18 08:11; Admin Dose 81 MG; Start 09/26/18 at 09:00 Atorvastatin Calcium (Lipitor) 20 mg QHS PO Last administered on 09/25/18 21:33; Admin Dose 20 MG; Start 09/25/18 at 21:00 Carvedilol (Coreg) 6.25 mg BID PO Last administered on 09/26/18 08:08; Admin Dose 6.25 MG; Start 09/25/18 at 21:00 Docusate Sodium (Colace) 100 mg Q12H PRN PO .CONSTIPATION; Start 09/25/18 at 20:30 Fluvoxamine Maleate (Luvox) 50 mg TID PO Last administered on 09/26/18 12:08; Admin Dose 50 MG; Start 09/25/18 at 21:00 Insulin Aspart (Novolog Insulin Pen) NOVOLOG *MILD* ALGORITHM WITH MEALS BEDTIME SC Last administered on 09/26/18 12:05; Admin Dose 1 UNIT; Start 09/25/18 at 21:00 Insulin Aspart (Novolog Insulin Pen) 8 unit WITH MEALS SC Last administered on 09/26/18 12:06; Admin Dose 8 UNIT; Start 09/26/18 at 07:35 Insulin Glargine (Lantus) 22 units DAILY SC Last administered on 09/26/18 07:41; Admin Dose 22 UNITS; Start 09/26/18 at 09:00 Meclizine HCl (Antivert) 25 mg TID PRN PO DIZZINESS Last administered on 09/26/18 08:11; Admin Dose 25 MG; Start 09/25/18 at 20:30 Mirtazapine (Remeron) 7.5 mg HS PO Last administered on 09/25/18 21:33; Admin Dose 7.5 MG; Start 09/25/18 at 21:00 Tamsulosin HCl (Flomax) 0.4 mg HS PO Last administered on 09/25/18at 21:33; Admin Dose 0.4 MG; Start 09/25/18 at 21:00 Miscellaneous Information 1 ea NOTE XX ; Start 09/25/18 at 20:30 Glucose (Glutose) 15 gm Q15M PRN PO DECREASED GLUCOSE; Start 09/25/18 at 20:30 Glucose (Glutose) 22.5 gm Q15M PRN PO DECREASED GLUCOSE; Start 09/25/18 at 20:30 Dextrose (D50w Syringe) 25 ml Q15M PRN IV DECREASED GLUCOSE; Start 09/25/18 at 20:30 Dextrose (D50w Syringe) 50 ml Q15M PRN IV DECREASED GLUCOSE; Start 09/25/18 at 20:30 Glucagon (Glucagen) 1 mg Q15M PRN IM DECREASED GLUCOSE; Start 09/25/18 at 20:30 Glucose (Glutose) 15 gm Q15M PRN BUCCAL DECREASED GLUCOSE; Start 09/25/18 at 20:30 Docusate Sodium (Colace) 100 mg BID PO Last administered on 09/26/18at 08:06; Admin Dose 100 MG; Start 09/25/18 at 21:00 Senna (Senokot) 1 tab HS PO Last administered on 09/25/18at 21:33; Admin Dose 1 TAB; Start 09/25/18 at 21:00 Magnesium Hydroxide (Milk Of Mag) 30 ml BID PRN PO CONSTIPATION Last administered on 09/26/18at 08:08; Admin Dose 30 ML; Start 09/25/18 at 21:00 Lactulose (Enulose) 20 gm DAILY PRN PO CONSTIPATION; Start 09/25/18 at 21:00 Bisacodyl (Dulcolax Supp) 10 mg DAILY PRN [place] CONSTIPATION; Start 09/25/18 at 21:00 Carbamide Peroxide (Debrox Otic) 3 drop BID BOTH EARS ; Start 09/26/18 at 14:00; Stop 09/29/18 at 21:00 Coded Allergies: Penicillins (Verified Allergy, Unknown, 09/24/18) Past Surgical History None Past Surgical Hx: no surgical history Family History Significant Family History: no pertinent family hx Social History Denied history of alcohol, smoking or illicit drug use. Smoking Status: Never smoker Exam/Review of Systems Vital Signs Vitals Vital Signs Date Temp Pulse Resp B/P (MAP) Pulse Ox O2 O2 Flow FiO2 Time Delivery Rate 09/26/18 98.5 78 18 107/54 98 Room Air 13:06 (71) Intake and Output 09/25/18 09/25/18 09/26/18 1515:00 23:00 07:00 IntakeIntake Total 300 ml OutputOutput Total 200 ml 900 ml BalanceBalance -200 ml -600 ml JAVIER ARORA NP Sep 26, 2018 14:23
--- NOTE | 2018-09-26 14:32 | CONS ---
DATE OF ADMISSION: 09/25/2018 DATE OF CONSULTATION: 09/26/2018 REHABILITATION POST-ADMISSION PHYSICIAN EVALUATION REHABILITATION IMPAIRMENT CATEGORY: Other neuro secondary to positional vertigo. ACTIVE COMORBIDITIES: 1. Tinnitus. 2. Anemia. 3. Hypertension. 4. Diabetes mellitus type 2. 5. Hyperlipidemia. 6. Depression. 7. Impairments in self-care and mobility. HISTORY OF PRESENT ILLNESS: The patient is a pleasant 68-year-old left-handed male who had noted severe and worsening dizziness impeding mobility and self- care prior to admission. The patient was [facility] to [facility]. His head CT was negative for acute bleed. The patient noted to have significant impairments in self-care and mobility as compared to baseline and has been cleared to transfer to the rehabilitation unit for comprehensive interdisciplinary rehab care. FUNCTIONAL HISTORY: Prior to recent events, he was independent in self-care tasks and mobility. Currently, the patient requires minimal assist for self- care and mobility tasks. FAMILY & SOCIAL HISTORY: Patient lives alone in a home with steps to entry. He hopes to return home upon discharge. I have reviewed the preadmission screen and patient's current functional status is consistent with the preadmission screen. PAST MEDICAL HISTORY: 1. Diabetes mellitus. 2. Depression. 3. Hypertension. 4. Anemia. 5. Hyperlipidemia. CURRENT MEDICATIONS: 1. Aspirin 81 mg p.o. daily. 2. Lipitor 20 mg p.o. at bedtime. 3. Coreg 6.25 mg p.o. b.i.d. 4. Insulin sliding scale. 5. NovoLog 8 units subcutaneous with meals. 6. Lantus 22 units subq daily. 7. Antivert 25 mg p.o. t.i.d. 8. Remeron 7.5 mg p.o. at bedtime. ALLERGIES: PENICILLIN. PHYSICAL EXAMINATION: VITAL SIGNS: The patient is currently afebrile for stable vital signs. HEENT: Extraocular motion intact. Oropharynx clear. NECK: Supple. LUNGS: Clear anteriorly. CARDIAC: S1, S2. ABDOMEN: Soft, nontender, positive bowel sounds. NEUROLOGIC: The patient is awake, alert and oriented x3, can follow simple 1- step commands. Cranial nerves are grossly intact. He has antigravity strength in bilateral upper extremity and lower extremity. He has impaired static and dynamic balance. PLAN: The patient has been admitted for comprehensive interdisciplinary acute rehab and is anticipated to tolerate 3 hours of daily therapy in divided doses for at least 5/7 days a week. Treatment plan will include: 1. Physical therapy to focus on bed mobility, transfers, and household ambulation with the goal of having the patient reach a modified independent level. 2. Occupational therapy to focus on hygiene, grooming, dressing, bathing, and toileting activities with goal of having patient reach a modified independent level. 3. Rehabilitation nursing for carryover of therapeutic interventions, the goal of continent of bowel and bladder, and the goal of patient education with regard to the aforementioned issues. REHABILITATION BARRIER: Balance. INTERVENTION FOR BARRIER: Interdisciplinary approach. ESTIMATED LENGTH OF STAY: 7 days. DISPOSITION GOAL: Home. I acknowledge that I performed a full physical examination on this patient within 24 hours of admission to the rehabilitation unit. I believe the patient is a good candidate for comprehensive interdisciplinary rehab care and is anticipated to make reasonable goals in a reasonable period of time as outlined above. Dictated By: PETEY MERCHANT/REBECA Conf#: [id number] DID#: [id number] CC: EULALIO PELAEZ NP; NOLA HARO MD;*EndCC* MTDD
[2018-09-26 19:26] VITALS: BP 143/74; PULSE 83; RESP 18
[2018-09-26] MEDS: ATORVASTATIN 20 MG TAB PO SCH (20:24)
[2018-09-26] MEDS: TAMSULOSIN (SR) 0.4 MG CAP PO SCH (20:24)
[2018-09-26] MEDS: MIRTAZAPINE 15 MG TAB PO SCH (20:25)
[2018-09-26] MEDS: SENNA TAB PO SCH (20:31)
[2018-09-27 02:00] VITALS: BP 135/68; PULSE 78; RESP 18
[2018-09-27] MEDS: ACCU-CHEK XX SCH (02:00)
[2018-09-27 07:00] VITALS: BP 114/61; PULSE 62; RESP 16
[2018-09-27] MEDS: INSULIN ASPART [NOVOLOG] 3 ML PEN SC SCH ×7 (07:35→20:17)
[2018-09-27] MEDS: glipiZIDE 10 MG TAB PO SCH ×2 (08:11→17:23)
[2018-09-27] MEDS: INSULIN GLARGINE [LANTus] (100 UNITS/ML) SYG SC SCH (08:15)
[2018-09-27] MEDS: DOCUSATE SODIUM 100 MG CAP PO SCH ×2 (09:53→20:16)
[2018-09-27] MEDS: CARBAMIDE PEROXIDE 6.5% 15ML OTIC BOTH EARS SCH ×2 (09:53→20:10)
[2018-09-27] MEDS: ASPIRIN 81 MG TAB PO SCH (09:53)
[2018-09-27] MEDS: FLUVOXAMINE 50 MG TAB PO SCH ×3 (09:54→20:11)
--- NOTE | 2018-09-27 10:27 | PN ---
Date/Time of Note Date/Time of Note DATE: 09/27/18 TIME: 10:26 Subjective No new complaints Objective Vital Signs Date Temp Pulse Resp B/P (MAP) Pulse Ox O2 O2 Flow FiO2 Time Delivery Rate 09/27/18 97.6 62 16 114/61 97 Room Air 07:00 (78) Intake and Output 09/26/18 09/26/18 09/27/18 1515:00 23:00 07:00 IntakeIntake Total 400 ml 500 ml 250 ml OutputOutput Total 200 ml BalanceBalance 200 ml 500 ml 250 ml Exam pulm-cta min assist Results/Medications Result Diagram: 09/26/18 0712 09/26/18 0712 Results 24 hrs Laboratory Tests Test 09/26/18 11:48 09/26/18 17:52 09/26/18 20:09 09/27/18 08:04 Bedside Glucose 143 84 143 109 Medications Current Medications Diagnostic Test (Pha) (Accu-Chek) 1 ea 02 XX ; Start 09/26/18 at 02:00 Acetaminophen (Tylenol Tab) 650 mg Q6H PRN PO .PAIN 1-3 OR TEMP; Start 09/25/18 at 20:30 Aspirin (Aspirin) 81 mg DAILY PO Last administered on 09/27/18 09:53; Admin Dose 81 MG; Start 09/26/18 at 09:00 Atorvastatin Calcium (Lipitor) 20 mg QHS PO Last administered on 09/26/18at 20:24; Admin Dose 20 MG; Start 09/25/18 at 21:00 Carvedilol (Coreg) 6.25 mg BID PO Last administered on 09/27/18 09:54; Admin Dose 6.25 MG; Start 09/25/18 at 21:00 Docusate Sodium (Colace) 100 mg Q12H PRN PO .CONSTIPATION; Start 09/25/18 at 20:30 Fluvoxamine Maleate (Luvox) 50 mg TID PO Last administered on 09/27/18 09:54; Admin Dose 50 MG; Start 09/25/18 at 21:00 Insulin Aspart (Novolog Insulin Pen) NOVOLOG *MILD* ALGORITHM WITH MEALS BEDTIME SC Last administered on 09/26/18at 12:05; Admin Dose 1 UNIT; Start 09/25/18 at 21:00 Insulin Aspart (Novolog Insulin Pen) 8 unit WITH MEALS SC Last administered on 09/27/18 08:14; Admin Dose 8 UNIT; Start 09/26/18 at 07:35 Insulin Glargine (Lantus) 22 units DAILY SC Last administered on 09/27/18 08:15; Admin Dose 22 UNITS; Start 09/26/18 at 09:00 Meclizine HCl (Antivert) 25 mg TID PRN PO DIZZINESS Last administered on 09/26/18 08:11; Admin Dose 25 MG; Start 09/25/18 at 20:30 Mirtazapine (Remeron) 7.5 mg HS PO Last administered on 09/26/18 20:25; Admin Dose 7.5 MG; Start 09/25/18 at 21:00 Tamsulosin HCl (Flomax) 0.4 mg HS PO Last administered on 09/26/18 20:24; Admin Dose 0.4 MG; Start 09/25/18 at 21:00 Miscellaneous Information 1 ea NOTE XX ; Start 09/25/18 at 20:30 Glucose (Glutose) 15 gm Q15M PRN PO DECREASED GLUCOSE; Start 09/25/18 at 20:30 Glucose (Glutose) 22.5 gm Q15M PRN PO DECREASED GLUCOSE; Start 09/25/18 at 20:30 Dextrose (D50w Syringe) 25 ml Q15M PRN IV DECREASED GLUCOSE; Start 09/25/18 at 20:30 Dextrose (D50w Syringe) 50 ml Q15M PRN IV DECREASED GLUCOSE; Start 09/25/18 at 20:30 Glucagon (Glucagen) 1 mg Q15M PRN IM DECREASED GLUCOSE; Start 09/25/18 at 20:30 Glucose (Glutose) 15 gm Q15M PRN BUCCAL DECREASED GLUCOSE; Start 09/25/18 at 20:30 Docusate Sodium (Colace) 100 mg BID PO Last administered on 09/27/18 09:53; Admin Dose 100 MG; Start 09/25/18 at 21:00 Senna (Senokot) 1 tab HS PO Last administered on 09/25/18 21:33; Admin Dose 1 TAB; Start 09/25/18 at 21:00 Magnesium Hydroxide (Milk Of Mag) 30 ml BID PRN PO CONSTIPATION Last administered on 09/26/18 08:08; Admin Dose 30 ML; Start 09/25/18 at 21:00 Lactulose (Enulose) 20 gm DAILY PRN PO CONSTIPATION; Start 09/25/18 at 21:00 Bisacodyl (Dulcolax Supp) 10 mg DAILY PRN ND CONSTIPATION Last administered on 09/26/18at 17:50; Admin Dose 10 MG; Start 09/25/18 at 21:00 Carbamide Peroxide (Debrox Otic) 3 drop BID BOTH EARS Last administered on 09/27/18at 09:53; Admin Dose 3 DROP; Start 09/26/18 at 14:00; Stop 09/29/18 at 21:00 Glipizide (Glucotrol) 10 mg AC BREAKFAST DINNER PO Last administered on 09/27/18at 08:11; Admin Dose 10 MG; Start 09/27/18 at 07:05 Assessment/Plan Additional Assessment/Plan Rehab- Other neuro secondary to positional vertigo; debility Positional training and interdisciplinary rehab Tinnitus. Anemia. Hypertension. Diabetes mellitus type 2. Hyperlipidemia. Depression. PETEY CARVAJAL MD Sep 27, 2018 10:27
[2018-09-27 14:00] VITALS: BP 125/65; PULSE 74; RESP 16
--- NOTE | 2018-09-27 14:16 | PN ---
Date/Time of Note Date/Time of Note DATE: 09/27/18 TIME: 14:13 Assessment/Plan VTE Prophylaxis Risk score (from Ns)>0 risk: 3 SCD applied (from Ns): No SCD contraindicated: low risk/ambulating Pharmacological prophylaxis: heparin Lines/Catheters [facility] Saline Lock Urinary Cath still in place: No Assessment/Plan Problems: (1) Benign positional vertigo Status: Acute Comment: He is now in the acute rehabilitation unit going through the protocols to enhance his ability to take care of himself. Continue treatment. These note that he is responding well to the usage of meclizine Qualifiers: Laterality: unspecified laterality Qualified Codes: H81.10 - Benign paroxysmal vertigo, unspecified ear (2) Tinnitus, bilateral Status: Chronic Comment: Noted. (3) Essential hypertension Status: Chronic Comment: Adequate control blood pressure (4) Diabetes mellitus type 2 in obese Status: Chronic Comment: In a controlled environment with controlled administration medications and diet he has excellent glycemic control (5) Hyperlipidemia Status: Chronic Comment: Statin therapy Qualifiers: Hyperlipidemia type: pure hypercholesterolemia Qualified Codes: E78.00 - Pure hypercholesterolemia, unspecified (6) Benign prostatic hyperplasia Status: Chronic Comment: Continue usage of alpha blockade Qualifiers: Lower urinary tract symptom presence: symptoms present Lower urinary tract symptom detail: unspecified Qualified Codes: N40.1 - Benign prostatic hyperplasia with lower urinary tract symptoms (7) Major depressive disorder Status: Chronic Comment: On treatment. (8) Obesity (BMI 30.0-34.9) Result Diagram: 09/26/18 0712 09/26/18 0712 Results 24hrs Laboratory Tests Test 09/26/18 17:52 09/26/18 20:09 09/27/18 08:04 09/27/18 12:05 Bedside Glucose 84 143 109 164 Subjective 24 Hr Interval Summary Free Text/Dictation Patient reports his sensation of dizziness his left this although he did have some when they tried the Kevan maneuver on him. Constitutional: no complaints (No fevers chills or sweats) Respiratory: no complaints Cardiovascular: no complaints Gastrointestinal: no complaints Endocrine: no complaints Exam/Review of Systems Exam Vitals Vital Signs Date Temp Pulse Resp B/P (MAP) Pulse Ox O2 O2 Flow FiO2 Time Delivery Rate 09/27/18 97.6 62 16 114/61 97 Room Air 07:00 (78) Intake and Output 09/26/18 09/26/18 09/27/18 1515:00 23:00 07:00 IntakeIntake Total 400 ml 500 ml 250 ml OutputOutput Total 200 ml BalanceBalance 200 ml 500 ml 250 ml Constitutional: alert, oriented Eyes: other (No nystagmus) ENMT: nl external ears & nose, nl lips & teeth, nl nasal mucosa & septum Neck: supple, non-tender Respiratory: clear to auscultation Cardiovascular: regular rate and rhythm, nl pulses Gastrointestinal: soft, nl liver, spleen, non-tender Results Results 24hrs Laboratory Tests Test 09/26/18 17:52 09/26/18 20:09 09/27/18 08:04 09/27/18 12:05 Bedside Glucose 84 143 109 164 Medications Medication Current Medications Diagnostic Test (Pha) (Accu-Chek) 1 XX ; Start 09/26/18 at 02:00 Acetaminophen (Tylenol Tab) 650 mg Q6H PRN PO .PAIN 1-3 OR TEMP; Start 09/25/18 at 20:30 Aspirin (Aspirin) 81 mg DAILY PO Last administered on 09/27/18 09:53; Admin Dose 81 MG; Start 09/26/18 at 09:00 Atorvastatin Calcium (Lipitor) 20 mg QHS PO Last administered on 09/26/18 20:24; Admin Dose 20 MG; Start 09/25/18 at 21:00 Carvedilol (Coreg) 6.25 mg BID PO Last administered on 09/27/18 09:54; Admin Dose 6.25 MG; Start 09/25/18 at 21:00 Docusate Sodium (Colace) 100 mg Q12H PRN PO .CONSTIPATION; Start 09/25/18 at 20:30 Fluvoxamine Maleate (Luvox) 50 mg TID PO Last administered on 09/27/18 14:11; Admin Dose 50 MG; Start 09/25/18 at 21:00 Insulin Aspart (Novolog Insulin Pen) NOVOLOG *MILD* ALGORITHM WITH MEALS BEDTIME SC Last administered on 09/27/18 12:08; Admin Dose 1 UNIT; Start 09/25/18 at 21:00 Insulin Aspart (Novolog Insulin Pen) 8 unit WITH MEALS SC Last administered on 09/27/18 12:07; Admin Dose 8 UNIT; Start 09/26/18 at 07:35 Insulin Glargine (Lantus) 22 units DAILY SC Last administered on 09/27/18 08:15; Admin Dose 22 UNITS; Start 09/26/18 at 09:00 Meclizine HCl (Antivert) 25 mg TID PRN PO DIZZINESS Last administered on 09/26/18 08:11; Admin Dose 25 MG; Start 09/25/18 at 20:30 Mirtazapine (Remeron) 7.5 mg HS PO Last administered on 09/26/18 20:25; Admin Dose 7.5 MG; Start 09/25/18 at 21:00 Tamsulosin HCl (Flomax) 0.4 mg HS PO Last administered on 09/26/18 20:24; Admin Dose 0.4 MG; Start 09/25/18 at 21:00 Miscellaneous Information 1 ea NOTE XX ; Start 09/25/18 at 20:30 Glucose (Glutose) 15 gm Q15M PRN PO DECREASED GLUCOSE; Start 09/25/18 at 20:30 Glucose (Glutose) 22.5 gm Q15M PRN PO DECREASED GLUCOSE; Start 09/25/18 at 20:30 Dextrose (D50w Syringe) 25 ml Q15M PRN IV DECREASED GLUCOSE; Start 09/25/18 at 20:30 Dextrose (D50w Syringe) 50 ml Q15M PRN IV DECREASED GLUCOSE; Start 09/25/18 at 20:30 Glucagon (Glucagen) 1 mg Q15M PRN IM DECREASED GLUCOSE; Start 09/25/18 at 20:30 Glucose (Glutose) 15 gm Q15M PRN BUCCAL DECREASED GLUCOSE; Start 09/25/18 at 20:30 Docusate Sodium (Colace) 100 mg BID PO Last administered on 09/27/18 09:53; Admin Dose 100 MG; Start 09/25/18 at 21:00 Senna (Senokot) 1 tab HS PO Last administered on 09/25/18at 21:33; Admin Dose 1 TAB; Start 09/25/18 at 21:00 Magnesium Hydroxide (Milk Of Mag) 30 ml BID PRN PO CONSTIPATION Last administered on 09/26/18 08:08; Admin Dose 30 ML; Start 09/25/18 at 21:00 Lactulose (Enulose) 20 gm DAILY PRN PO CONSTIPATION; Start 09/25/18 at 21:00 Bisacodyl (Dulcolax Supp) 10 mg DAILY PRN [place] CONSTIPATION Last administered on 09/26/18at 17:50; Admin Dose 10 MG; Start 09/25/18 at 21:00 Carbamide Peroxide (Debrox Otic) 3 drop BID BOTH EARS Last administered on 09/27/18at 09:53; Admin Dose 3 DROP; Start 09/26/18 at 14:00; Stop 09/29/18 at 21:00 Glipizide (Glucotrol) 10 mg AC BREAKFAST DINNER PO Last administered on 09/27/18at 08:11; Admin Dose 10 MG; Start 09/27/18 at 07:05 BIJU BOYLE MD Sep 27, 2018 14:16
[2018-09-27 19:39] VITALS: BP 125/61; PULSE 80; RESP 18
[2018-09-27] MEDS: TAMSULOSIN (SR) 0.4 MG CAP PO SCH (20:11)
[2018-09-27] MEDS: ATORVASTATIN 20 MG TAB PO SCH (20:11)
[2018-09-27] MEDS: MECLIZINE 25 MG TAB PO PRN (20:11)
[2018-09-27] MEDS: MIRTAZAPINE 15 MG TAB PO SCH (20:11)
[2018-09-27] MEDS: SENNA TAB PO SCH (20:16)
[2018-09-28] MEDS: ACCU-CHEK XX SCH (02:00)
[2018-09-28 03:00] VITALS: BP 99/56; PULSE 65; RESP 18
[2018-09-28 07:00] VITALS: BP 123/73; PULSE 77; RESP 18
[2018-09-28] MEDS: INSULIN ASPART [NOVOLOG] 3 ML PEN SC SCH ×7 (07:35→20:31)
[2018-09-28] MEDS: glipiZIDE 10 MG TAB PO SCH ×2 (07:57→17:29)
[2018-09-28] MEDS: FLUVOXAMINE 50 MG TAB PO SCH ×3 (08:35→20:25)
[2018-09-28] MEDS: ASPIRIN 81 MG TAB PO SCH (08:35)
[2018-09-28] MEDS: DOCUSATE SODIUM 100 MG CAP PO SCH ×2 (08:35→20:31)
[2018-09-28] MEDS: CARBAMIDE PEROXIDE 6.5% 15ML OTIC BOTH EARS SCH ×2 (08:36→20:25)
[2018-09-28] MEDS: INSULIN GLARGINE [LANTus] (100 UNITS/ML) SYG SC SCH (08:41)
--- NOTE | 2018-09-28 10:53 | PN ---
Date/Time of Note Date/Time of Note DATE: 09/28/18 TIME: 10:51 Assessment/Plan VTE Prophylaxis Risk score (from Ns)>0 risk: 4 SCD applied (from Ns): No SCD contraindicated: low risk/ambulating Pharmacological prophylaxis: heparin Lines/Catheters [facility] Saline Lock Urinary Cath still in place: No Assessment/Plan Problems: (1) Iron deficiency anemia Status: Chronic Comment: Will need to be worked up as an outpatient Qualifiers: Iron deficiency anemia type: unspecified iron deficiency Qualified Codes: D50.9 - Iron deficiency anemia, unspecified (2) Benign positional vertigo Status: Acute Comment: Improving quite nicely. Continue rehabilitation unit protocol as per the director Qualifiers: Laterality: unspecified laterality Qualified Codes: H81.10 - Benign paroxysmal vertigo, unspecified ear (3) Tinnitus, bilateral Status: Chronic Comment: Noted. (4) Major depressive disorder Status: Chronic Comment: Stable and under control on medications Qualifiers: Major depression recurrence: recurrent Active/Remission status: in partial remission Qualified Codes: F33.41 - Major depressive disorder, recurrent, in partial remission (5) Anxiety Status: Acute Comment: Adequate control with medications (6) Essential hypertension Status: Chronic Comment: Adequate control on medications and well compensated (7) Benign prostatic hyperplasia Status: Chronic Comment: Stable on treatment Qualifiers: Lower urinary tract symptom presence: symptoms present Lower urinary tract symptom detail: unspecified Qualified Codes: N40.1 - Benign prostatic hyperplasia with lower urinary tract symptoms (8) Diabetes mellitus type 2 in obese Status: Chronic Comment: Adequate control (9) Obesity (BMI 30.0-34.9) Status: Chronic Comment: Calorie restriction diet (10) Hyperlipidemia Status: Chronic Comment: Continue with statin therapy Qualifiers: Hyperlipidemia type: pure hypercholesterolemia Qualified Codes: E78.00 - Pure hypercholesterolemia, unspecified Result Diagram: 09/26/18 0712 09/26/18 0712 Results 24hrs Laboratory Tests Test 09/27/18 12:05 09/27/18 14:27 09/27/18 17:21 09/27/18 20:09 Bedside Glucose 164 117 180 Iron Level 38 Total Iron Binding 236 L Capacity Percent Iron 16 L Saturation Vitamin B12 Level 551 Test 09/28/18 07:34 Bedside Glucose 101 Subjective 24 Hr Interval Summary Free Text/Dictation Patient reports he is having no further episodes of vertigo Constitutional: no complaints Respiratory: no complaints Cardiovascular: no complaints Gastrointestinal: no complaints Genitourinary: no complaints Exam/Review of Systems Exam Vitals Vital Signs Date Temp Pulse Resp B/P (MAP) Pulse Ox O2 O2 Flow FiO2 Time Delivery Rate 09/28/18 97.9 77 18 123/73 99 Room Air 07:00 (90) Intake and Output 09/27/18 09/27/18 09/28/18 1515:00 23:00 07:00 IntakeIntake Total 1620 ml 200 ml OutputOutput Total 1150 ml 450 ml BalanceBalance 470 ml -250 ml Constitutional: alert, oriented Neck: supple, non-tender Respiratory: clear to auscultation, normal air movement Cardiovascular: regular rate and rhythm, nl pulses Gastrointestinal: soft, nl liver, spleen, non-tender Extremities: normal pulses Results Results 24hrs Laboratory Tests Test 09/27/18 12:05 09/27/18 14:27 09/27/18 17:21 09/27/18 20:09 Bedside Glucose 164 117 180 Iron Level 38 Total Iron Binding 236 L Capacity Percent Iron 16 L Saturation Vitamin B12 Level 551 Test 09/28/18 07:34 Bedside Glucose 101 Medications Medication Current Medications Diagnostic Test (Pha) (Accu-Chek) 1 ea 02 XX ; Start 09/26/18 at 02:00 Acetaminophen (Tylenol Tab) 650 mg Q6H PRN PO .PAIN 1-3 OR TEMP; Start 09/25/18 at 20:30 Aspirin (Aspirin) 81 mg DAILY PO Last administered on 09/28/18at 08:35; Admin Dose 81 MG; Start 09/26/18 at 09:00 Atorvastatin Calcium (Lipitor) 20 mg QHS PO Last administered on 09/27/18at 20:11; Admin Dose 20 MG; Start 09/25/18 at 21:00 Carvedilol (Coreg) 6.25 mg BID PO Last administered on 09/28/18at 08:36; Admin Dose 6.25 MG; Start 09/25/18 at 21:00 Docusate Sodium (Colace) 100 mg Q12H PRN PO .CONSTIPATION; Start 09/25/18 at 20:30 Fluvoxamine Maleate (Luvox) 50 mg TID PO Last administered on 09/28/18at 08:35; Admin Dose 50 MG; Start 09/25/18 at 21:00 Insulin Aspart (Novolog Insulin Pen) NOVOLOG *MILD* ALGORITHM WITH MEALS BEDTIME SC Last administered on 09/27/18at 12:08; Admin Dose 1 UNIT; Start 09/25/18 at 21:00 Insulin Aspart (Novolog Insulin Pen) 8 unit WITH MEALS SC Last administered on 09/28/18 08:00; Admin Dose 8 UNIT; Start 09/26/18 at 07:35 Insulin Glargine (Lantus) 22 units DAILY SC Last administered on 09/28/18 08:41; Admin Dose 22 UNITS; Start 09/26/18 at 09:00 Meclizine HCl (Antivert) 25 mg TID PRN PO DIZZINESS Last administered on 09/27/18 20:11; Admin Dose 25 MG; Start 09/25/18 at 20:30 Mirtazapine (Remeron) 7.5 mg HS PO Last administered on 09/27/18 20:11; Admin Dose 7.5 MG; Start 09/25/18 at 21:00 Tamsulosin HCl (Flomax) 0.4 mg HS PO Last administered on 09/27/18 20:11; Admin Dose 0.4 MG; Start 09/25/18 at 21:00 Miscellaneous Information 1 ea NOTE XX ; Start 09/25/18 at 20:30 Glucose (Glutose) 15 gm Q15M PRN PO DECREASED GLUCOSE; Start 09/25/18 at 20:30 Glucose (Glutose) 22.5 gm Q15M PRN PO DECREASED GLUCOSE; Start 09/25/18 at 20:30 Dextrose (D50w Syringe) 25 ml Q15M PRN IV DECREASED GLUCOSE; Start 09/25/18 at 20:30 Dextrose (D50w Syringe) 50 ml Q15M PRN IV DECREASED GLUCOSE; Start 09/25/18 at 20:30 Glucagon (Glucagen) 1 mg Q15M PRN IM DECREASED GLUCOSE; Start 09/25/18 at 20:30 Glucose (Glutose) 15 gm Q15M PRN BUCCAL DECREASED GLUCOSE; Start 09/25/18 at 20:30 Docusate Sodium (Colace) 100 mg BID PO Last administered on 09/28/18 08:35; Admin Dose 100 MG; Start 09/25/18 at 21:00 Senna (Senokot) 1 tab HS PO Last administered on 09/25/18at 21:33; Admin Dose 1 TAB; Start 09/25/18 at 21:00 Magnesium Hydroxide (Milk Of Mag) 30 ml BID PRN PO CONSTIPATION Last administered on 09/26/18 08:08; Admin Dose 30 ML; Start 09/25/18 at 21:00 Lactulose (Enulose) 20 gm DAILY PRN PO CONSTIPATION; Start 09/25/18 at 21:00 Bisacodyl (Dulcolax Supp) 10 mg DAILY PRN IN CONSTIPATION Last administered on 09/26/18at 17:50; Admin Dose 10 MG; Start 09/25/18 at 21:00 Carbamide Peroxide (Debrox Otic) 3 drop BID BOTH EARS Last administered on 09/28/18at 08:36; Admin Dose 3 DROP; Start 09/26/18 at 14:00; Stop 09/29/18 at 21:00 Glipizide (Glucotrol) 10 mg AC BREAKFAST DINNER PO Last administered on 09/28/18at 07:57; Admin Dose 10 MG; Start 09/27/18 at 07:05 BIJU BOYLE MD Sep 28, 2018 10:53
[2018-09-28] MEDS: FERROUS FUMARATE (SR) TAB PO SCH (12:06)
[2018-09-28 14:00] VITALS: BP 127/67; PULSE 74; RESP 18
[2018-09-28] MEDS: TAMSULOSIN (SR) 0.4 MG CAP PO SCH (20:25)
[2018-09-28] MEDS: MIRTAZAPINE 15 MG TAB PO SCH (20:25)
[2018-09-28] MEDS: ATORVASTATIN 20 MG TAB PO SCH (20:25)
[2018-09-28 20:29] VITALS: BP 126/60; PULSE 78; RESP 18
[2018-09-28] MEDS: SENNA TAB PO SCH (20:31)
[2018-09-29] MEDS: ACCU-CHEK XX SCH (02:00)
[2018-09-29 02:28] VITALS: BP 104/56; PULSE 69; RESP 18
[2018-09-29 07:00] VITALS: BP 123/75; PULSE 69; RESP 18
[2018-09-29] MEDS: INSULIN ASPART [NOVOLOG] 3 ML PEN SC SCH ×7 (07:35→21:00)
[2018-09-29] MEDS: glipiZIDE 10 MG TAB PO SCH ×2 (08:08→17:24)
[2018-09-29] MEDS: INSULIN GLARGINE [LANTus] (100 UNITS/ML) SYG SC SCH (08:09)
[2018-09-29] MEDS: FERROUS FUMARATE (SR) TAB PO SCH (10:34)
[2018-09-29] MEDS: DOCUSATE SODIUM 100 MG CAP PO SCH ×2 (10:34→21:00)
[2018-09-29] MEDS: ASPIRIN 81 MG TAB PO SCH (10:34)
[2018-09-29] MEDS: CARBAMIDE PEROXIDE 6.5% 15ML OTIC BOTH EARS SCH ×2 (10:34→21:06)
[2018-09-29] MEDS: FLUVOXAMINE 50 MG TAB PO SCH ×3 (10:35→21:06)
--- NOTE | 2018-09-29 11:38 | CONS ---
Assessment/Plan Assessment/Plan Hospital Course (Demo Recall) Dizziness, resolved Hypertension Preserved ejection fraction Diabetes Psychiatric disorder Nuclear cardiac perfusion study small infarct no ischemia in May 2018 -Patient feeling better and denies any further dizziness with activity -Blood pressure trend overall stable. -Continue therapy as tolerated Consultation Date/Type/Reason Admit Date/Time Sep 25, 2018 at 18:57 Initial Consult Date Type of Consult Cardiology Date/Time of Note DATE: 09/29/18 TIME: 11:37 24 HR Interval Summary Free Text/Dictation Denies dizziness, shortness of breath, chest pain at rest or with activity Exam/Review of Systems Vital Signs Vitals Vital Signs Date Temp Pulse Resp B/P (MAP) Pulse Ox O2 O2 Flow FiO2 Time Delivery Rate 09/29/18 98.1 69 18 123/75 96 Room Air 07:00 (91) Intake and Output 09/28/18 09/28/18 09/29/18 1515:00 23:00 07:00 IntakeIntake Total 1000 ml OutputOutput Total 800 ml 300 ml BalanceBalance 200 ml -300 ml Exam Constitutional: alert, oriented (No apparent distress) Respiratory: clear to auscultation, normal air movement Cardiovascular: regular rate and rhythm (S1-S2 heard) Gastrointestinal: non-tender, bowel sounds Extremities: other (No significant edema) Labs Result Diagram: 09/26/18 0712 09/26/18 0712 Results 24hrs Laboratory Tests Test 09/28/18 11:51 09/28/18 17:23 09/28/18 20:24 09/29/18 08:06 Bedside Glucose 112 146 130 106 Medications Medications Current Medications Diagnostic Test (Pha) (Accu-Chek) XX ; Start 09/26/18 at 02:00 Acetaminophen (Tylenol Tab) 650 mg Q6H PRN PO .PAIN 1-3 OR TEMP; Start 09/25/18 at 20:30 Aspirin (Aspirin) 81 mg DAILY PO Last administered on 09/29/18at 10:34; Admin Dose 81 MG; Start 09/26/18 at 09:00 Atorvastatin Calcium (Lipitor) 20 mg QHS PO Last administered on 09/28/18at 20:25; Admin Dose 20 MG; Start 09/25/18 at 21:00 Carvedilol (Coreg) 6.25 mg BID PO Last administered on 09/29/18at 10:34; Admin Dose 6.25 MG; Start 09/25/18 at 21:00 Docusate Sodium (Colace) 100 mg Q12H PRN PO .CONSTIPATION; Start 09/25/18 at 20:30 Fluvoxamine Maleate (Luvox) 50 mg TID PO Last administered on 09/29/18 10:35; Admin Dose 50 MG; Start 09/25/18 at 21:00 Insulin Aspart (Novolog Insulin Pen) NOVOLOG *MILD* ALGORITHM WITH MEALS BEDTIME SC Last administered on 09/28/18 17:31; Admin Dose 1 UNIT; Start 09/25/18 at 21:00 Insulin Aspart (Novolog Insulin Pen) 8 unit WITH MEALS SC Last administered on 09/29/18 08:08; Admin Dose 8 UNIT; Start 09/26/18 at 07:35 Insulin Glargine (Lantus) 22 units DAILY SC Last administered on 09/29/18 08:09; Admin Dose 22 UNITS; Start 09/26/18 at 09:00 Meclizine HCl (Antivert) 25 mg TID PRN PO DIZZINESS Last administered on 09/27/18 20:11; Admin Dose 25 MG; Start 09/25/18 at 20:30 Mirtazapine (Remeron) 7.5 mg HS PO Last administered on 09/28/18 20:25; Admin Dose 7.5 MG; Start 09/25/18 at 21:00 Tamsulosin HCl (Flomax) 0.4 mg HS PO Last administered on 09/28/18 20:25; Admin Dose 0.4 MG; Start 09/25/18 at 21:00 Miscellaneous Information 1 ea NOTE XX ; Start 09/25/18 at 20:30 Glucose (Glutose) 15 gm Q15M PRN PO DECREASED GLUCOSE; Start 09/25/18 at 20:30 Glucose (Glutose) 22.5 gm Q15M PRN PO DECREASED GLUCOSE; Start 09/25/18 at 20:30 Dextrose (D50w Syringe) 25 ml Q15M PRN IV DECREASED GLUCOSE; Start 09/25/18 at 20:30 Dextrose (D50w Syringe) 50 ml Q15M PRN IV DECREASED GLUCOSE; Start 09/25/18 at 20:30 Glucagon (Glucagen) 1 mg Q15M PRN IM DECREASED GLUCOSE; Start 09/25/18 at 20:30 Glucose (Glutose) 15 gm Q15M PRN BUCCAL DECREASED GLUCOSE; Start 09/25/18 at 20:30 Docusate Sodium (Colace) 100 mg BID PO Last administered on 09/29/18 10:34; Admin Dose 100 MG; Start 09/25/18 at 21:00 Senna (Senokot) 1 tab HS PO Last administered on 09/25/18at 21:33; Admin Dose 1 TAB; Start 09/25/18 at 21:00 Magnesium Hydroxide (Milk Of Mag) 30 ml BID PRN PO CONSTIPATION Last administered on 09/26/18 08:08; Admin Dose 30 ML; Start 09/25/18 at 21:00 Lactulose (Enulose) 20 gm DAILY PRN PO CONSTIPATION; Start 09/25/18 at 21:00 Bisacodyl (Dulcolax Supp) 10 mg DAILY PRN ND CONSTIPATION Last administered on 09/26/18at 17:50; Admin Dose 10 MG; Start 09/25/18 at 21:00 Carbamide Peroxide (Debrox Otic) 3 drop BID BOTH EARS Last administered on 09/29/18 10:34; Admin Dose 3 DROP; Start 09/26/18 at 14:00; Stop 09/29/18 at 21:00 Glipizide (Glucotrol) 10 mg AC BREAKFAST DINNER PO Last administered on 09/29/18 08:08; Admin Dose 10 MG; Start 09/27/18 at 07:05 Docusate Sodium/ Ferrous Fumarate (Kevan-Sequels) 1 tab DAILY PO Last administered on 09/29/18 10:34; Admin Dose 1 TAB; Start 09/28/18 at 11:00; Stop 10/28/18 at 10:59 Obi Haji DO Sep 29, 2018 11:38
--- NOTE | 2018-09-29 12:10 | PN ---
Date/Time of Note Date/Time of Note DATE: 09/29/18 TIME: 12:08 Assessment/Plan VTE Prophylaxis Risk score (from Nsg)>0 risk: 4 SCD applied (from Nsg): Yes Pharmacological prophylaxis: heparin Lines/Catheters IV Catheter Type (from Nrsg): Saline Lock Urinary Cath still in place: No Assessment/Plan Hospital Course SUBJECTIVE: was doing PT, no dizziness OBJECTIVE: Vital signs-see below PHYSICAL EXAM: Constitutional: Well-developed, adequately built, lying in bed comfortably. Psych: nl mood/affect, no complaints Head: atraumatic, normocephalic Eyes: nl conjunctiva, nl sclera ENMT: mucosa pink and moist, nl external ears & nose Neck: non-tender, supple Respiratory: clear to auscultation, normal air movement Cardiovascular: nl pulses, regular rate and rhythm Gastrointestinal: non-tender, soft, bowel sounds active in all 4 quadrants. Musculoskeletal/extremities: nl extremities to inspection, motor strength equal bilaterally, no focal deficit. Normal pulses,no cyanosis, no edema. Neurological: Alert oriented 3,nl speech, nl strength Skin: nl turgor ASSESSMENT/PLAN: 68-year-old male with benign positional vertigo, hypertension, dyslipidemia, psychiatric disorders, diabetes, transferred to acute rehabilitation unit for further physical therapy following BPV. 1. Benign positional vertigo -continue PRN meclizine. -PT eval and treat-good participation and tolerance. 2. Depression -continue home meds 3. DMII -Stable glycemic trends - Continue insulin regimen 4. HTN -Controlled -Continue antihypertensives 5. Dyslipidemia - on statin 6. Chronic anemia, mild -Stable H&H. DVT prophylaxis: SCDs PUD prophylaxis: Not indicated CODE STATUS: Full code Carbohydrate controlled diet. Result Diagram: 09/26/18 0712 09/26/18 0712 Results 24hrs Laboratory Tests Test 09/28/18 17:23 09/28/18 20:24 09/29/18 08:06 09/29/18 11:58 Bedside Glucose 146 130 106 135 Exam/Review of Systems Exam Vitals Vital Signs Date Temp Pulse Resp B/P (MAP) Pulse Ox O2 O2 Flow FiO2 Time Delivery Rate 09/29/18 98.1 69 18 123/75 96 Room Air 07:00 (91) Intake and Output 09/28/18 09/28/18 09/29/18 1515:00 23:00 07:00 IntakeIntake Total 1000 ml OutputOutput Total 800 ml 300 ml BalanceBalance 200 ml -300 ml Results Results 24hrs Laboratory Tests Test 09/28/18 17:23 09/28/18 20:24 09/29/18 08:06 09/29/18 11:58 Bedside Glucose 146 130 106 135 Medications Medication Current Medications Diagnostic Test (Pha) (Accu-Chek) XX ; Start 09/26/18 at 02:00 Acetaminophen (Tylenol Tab) 650 mg Q6H PRN PO .PAIN 1-3 OR TEMP; Start 09/25/18 at 20:30 Aspirin (Aspirin) 81 mg DAILY PO Last administered on 09/29/18 10:34; Admin Dose 81 MG; Start 09/26/18 at 09:00 Atorvastatin Calcium (Lipitor) 20 mg QHS PO Last administered on 09/28/18 20:25; Admin Dose 20 MG; Start 09/25/18 at 21:00 Carvedilol (Coreg) 6.25 mg BID PO Last administered on 09/29/18 10:34; Admin Dose 6.25 MG; Start 09/25/18 at 21:00 Docusate Sodium (Colace) 100 mg Q12H PRN PO .CONSTIPATION; Start 09/25/18 at 20:30 Fluvoxamine Maleate (Luvox) 50 mg TID PO Last administered on 09/29/18 10:35; Admin Dose 50 MG; Start 09/25/18 at 21:00 Insulin Aspart (Novolog Insulin Pen) NOVOLOG *MILD* ALGORITHM WITH MEALS BEDTIME SC Last administered on 09/28/18 17:31; Admin Dose 1 UNIT; Start 09/25/18 at 21:00 Insulin Aspart (Novolog Insulin Pen) 8 unit WITH MEALS SC Last administered on 09/29/18 12:01; Admin Dose 8 UNIT; Start 09/26/18 at 07:35 Insulin Glargine (Lantus) 22 units DAILY SC Last administered on 09/29/18 08:09; Admin Dose 22 UNITS; Start 09/26/18 at 09:00 Meclizine HCl (Antivert) 25 mg TID PRN PO DIZZINESS Last administered on 09/27/18 20:11; Admin Dose 25 MG; Start 09/25/18 at 20:30 Mirtazapine (Remeron) 7.5 mg HS PO Last administered on 09/28/18at 20:25; Admin Dose 7.5 MG; Start 09/25/18 at 21:00 Tamsulosin HCl (Flomax) 0.4 mg HS PO Last administered on 09/28/18at 20:25; Admin Dose 0.4 MG; Start 09/25/18 at 21:00 Miscellaneous Information 1 ea NOTE XX ; Start 09/25/18 at 20:30 Glucose (Glutose) 15 gm Q15M PRN PO DECREASED GLUCOSE; Start 09/25/18 at 20:30 Glucose (Glutose) 22.5 gm Q15M PRN PO DECREASED GLUCOSE; Start 09/25/18 at 20:30 Dextrose (D50w Syringe) 25 ml Q15M PRN IV DECREASED GLUCOSE; Start 09/25/18 at 20:30 Dextrose (D50w Syringe) 50 ml Q15M PRN IV DECREASED GLUCOSE; Start 09/25/18 at 20:30 Glucagon (Glucagen) 1 mg Q15M PRN IM DECREASED GLUCOSE; Start 09/25/18 at 20:30 Glucose (Glutose) 15 gm Q15M PRN BUCCAL DECREASED GLUCOSE; Start 09/25/18 at 20:30 Docusate Sodium (Colace) 100 mg BID PO Last administered on 09/29/18at 10:34; Admin Dose 100 MG; Start 09/25/18 at 21:00 Senna (Senokot) 1 tab HS PO Last administered on 09/25/18at 21:33; Admin Dose 1 TAB; Start 09/25/18 at 21:00 Magnesium Hydroxide (Milk Of Mag) 30 ml BID PRN PO CONSTIPATION Last administered on 09/26/18at 08:08; Admin Dose 30 ML; Start 09/25/18 at 21:00 Lactulose (Enulose) 20 gm DAILY PRN PO CONSTIPATION; Start 09/25/18 at 21:00 Bisacodyl (Dulcolax Supp) 10 mg DAILY PRN [place] CONSTIPATION Last administered on 09/26/18at 17:50; Admin Dose 10 MG; Start 09/25/18 at 21:00 Carbamide Peroxide (Debrox Otic) 3 drop BID BOTH EARS Last administered on 09/29/18at 10:34; Admin Dose 3 DROP; Start 09/26/18 at 14:00; Stop 09/29/18 at 21:00 Glipizide (Glucotrol) 10 mg AC BREAKFAST DINNER PO Last administered on 09/29/18at 08:08; Admin Dose 10 MG; Start 09/27/18 at 07:05 Docusate Sodium/ Ferrous Fumarate (Kevan-Sequels) 1 tab DAILY PO Last administered on 09/29/18at 10:34; Admin Dose 1 TAB; Start 09/28/18 at 11:00; Stop 10/28/18 at 10:59 ROSE PISANO Sep 29, 2018 12:10
--- NOTE | 2018-09-29 12:48 | PN ---
Date/Time of Note Date/Time of Note DATE: 09/29/18 TIME: 12:47 Objective Vital Signs Date Temp Pulse Resp B/P (MAP) Pulse Ox O2 O2 Flow FiO2 Time Delivery Rate 09/29/18 98.1 69 18 123/75 96 Room Air 07:00 (91) Intake and Output 09/28/18 09/28/18 09/29/18 1515:00 23:00 07:00 IntakeIntake Total 1000 ml OutputOutput Total 800 ml 300 ml BalanceBalance 200 ml -300 ml Exam INTERDISCIPLINARY TEAM CONFERENCE Overall feeling better Physical Exam: Pulm-cta Abd-soft BOWEL- Cont BLADDER-Cont SKIN- scratches on bilat LE OT- DRESSING-cga BATHING-cga TOILETING-cga PT- BED MOBILITY-min TRANSFERS-min [id number] feet A/P- Interdisciplinary team conference held today. Please see interdisciplinary sheet. Working toward d.c. on 10/01 with post discharge follow up of physical therapy, occupational therapy. Results/Medications Result Diagram: 09/26/18 0712 09/26/18 0712 Results 24 hrs Laboratory Tests Test 09/28/18 17:23 09/28/18 20:24 09/29/18 08:06 09/29/18 11:58 Bedside Glucose 146 130 106 135 Medications Current Medications Diagnostic Test (Pha) (Accu-Chek) 1 02 XX ; Start 09/26/18 at 02:00 Acetaminophen (Tylenol Tab) 650 mg Q6H PRN PO .PAIN 1-3 OR TEMP; Start 09/25/18 at 20:30 Aspirin (Aspirin) 81 mg DAILY PO Last administered on 09/29/18at 10:34; Admin Dose 81 MG; Start 09/26/18 at 09:00 Atorvastatin Calcium (Lipitor) 20 mg QHS PO Last administered on 09/28/18at 20:25; Admin Dose 20 MG; Start 09/25/18 at 21:00 Carvedilol (Coreg) 6.25 mg BID PO Last administered on 09/29/18at 10:34; Admin Dose 6.25 MG; Start 09/25/18 at 21:00 Docusate Sodium (Colace) 100 mg Q12H PRN PO .CONSTIPATION; Start 09/25/18 at 20:30 Fluvoxamine Maleate (Luvox) 50 mg TID PO Last administered on 09/29/18 10:35; Admin Dose 50 MG; Start 09/25/18 at 21:00 Insulin Aspart (Novolog Insulin Pen) NOVOLOG *MILD* ALGORITHM WITH MEALS BEDTIME SC Last administered on 09/28/18 17:31; Admin Dose 1 UNIT; Start 09/25/18 at 21:00 Insulin Aspart (Novolog Insulin Pen) 8 unit WITH MEALS SC Last administered on 09/29/18 12:01; Admin Dose 8 UNIT; Start 09/26/18 at 07:35 Insulin Glargine (Lantus) 22 units DAILY SC Last administered on 09/29/18 08:09; Admin Dose 22 UNITS; Start 09/26/18 at 09:00 Meclizine HCl (Antivert) 25 mg TID PRN PO DIZZINESS Last administered on 09/27/18 20:11; Admin Dose 25 MG; Start 09/25/18 at 20:30 Mirtazapine (Remeron) 7.5 mg HS PO Last administered on 09/28/18 20:25; Admin Dose 7.5 MG; Start 09/25/18 at 21:00 Tamsulosin HCl (Flomax) 0.4 mg HS PO Last administered on 09/28/18 20:25; Admin Dose 0.4 MG; Start 09/25/18 at 21:00 Miscellaneous Information 1 ea NOTE XX ; Start 09/25/18 at 20:30 Glucose (Glutose) 15 gm Q15M PRN PO DECREASED GLUCOSE; Start 09/25/18 at 20:30 Glucose (Glutose) 22.5 gm Q15M PRN PO DECREASED GLUCOSE; Start 09/25/18 at 20:30 Dextrose (D50w Syringe) 25 ml Q15M PRN IV DECREASED GLUCOSE; Start 09/25/18 at 20:30 Dextrose (D50w Syringe) 50 ml Q15M PRN IV DECREASED GLUCOSE; Start 09/25/18 at 20:30 Glucagon (Glucagen) 1 mg Q15M PRN IM DECREASED GLUCOSE; Start 09/25/18 at 20:30 Glucose (Glutose) 15 gm Q15M PRN BUCCAL DECREASED GLUCOSE; Start 09/25/18 at 20:30 Docusate Sodium (Colace) 100 mg BID PO Last administered on 09/29/18 10:34; Admin Dose 100 MG; Start 09/25/18 at 21:00 Senna (Senokot) 1 tab HS PO Last administered on 09/25/18at 21:33; Admin Dose 1 TAB; Start 09/25/18 at 21:00 Magnesium Hydroxide (Milk Of Mag) 30 ml BID PRN PO CONSTIPATION Last administered on 09/26/18 08:08; Admin Dose 30 ML; Start 09/25/18 at 21:00 Lactulose (Enulose) 20 gm DAILY PRN PO CONSTIPATION; Start 09/25/18 at 21:00 Bisacodyl (Dulcolax Supp) 10 mg DAILY PRN [place] CONSTIPATION Last administered on 09/26/18at 17:50; Admin Dose 10 MG; Start 09/25/18 at 21:00 Carbamide Peroxide (Debrox Otic) 3 drop BID BOTH EARS Last administered on 09/29/18at 10:34; Admin Dose 3 DROP; Start 09/26/18 at 14:00; Stop 09/29/18 at 21:00 Glipizide (Glucotrol) 10 mg AC BREAKFAST DINNER PO Last administered on 09/29/18at 08:08; Admin Dose 10 MG; Start 09/27/18 at 07:05 Docusate Sodium/ Ferrous Fumarate (Kevan-Sequels) 1 tab DAILY PO Last administered on 09/29/18at 10:34; Admin Dose 1 TAB; Start 09/28/18 at 11:00; Stop 10/28/18 at 10:59 Neomycin/ Polymyxin/ Bacitracin (Neosporin Topical Oint) 1 applic BID TOP ; Start 09/29/18 at 13:30 PETEY CARVAJAL MD Sep 29, 2018 12:48
[2018-09-29 14:00] VITALS: BP 115/60; PULSE 73; RESP 18
[2018-09-29] MEDS: NEOMYC/POLYMYX/BACIT 30 GM OINT TOP SCH ×2 (15:00→21:09)
[2018-09-29 20:00] VITALS: BP 117/61; PULSE 75; RESP 18
[2018-09-29] MEDS: SENNA TAB PO SCH (21:00)
[2018-09-29] MEDS: ATORVASTATIN 20 MG TAB PO SCH (21:06)
[2018-09-29] MEDS: MIRTAZAPINE 15 MG TAB PO SCH (21:06)
[2018-09-29] MEDS: TAMSULOSIN (SR) 0.4 MG CAP PO SCH (21:06)
[2018-09-30] MEDS: ACCU-CHEK XX SCH (02:00)
[2018-09-30 02:28] VITALS: BP 124/73; PULSE 67; RESP 18
[2018-09-30 07:30] VITALS: BP 102/55; PULSE 69; RESP 18
[2018-09-30] MEDS: INSULIN ASPART [NOVOLOG] 3 ML PEN SC SCH ×7 (07:35→20:44)
[2018-09-30] MEDS: glipiZIDE 10 MG TAB PO SCH ×2 (08:01→17:22)
[2018-09-30] MEDS: INSULIN GLARGINE [LANTus] (100 UNITS/ML) SYG SC SCH (08:03)
[2018-09-30] MEDS: ASPIRIN 81 MG TAB PO SCH (08:36)
[2018-09-30] MEDS: DOCUSATE SODIUM 100 MG CAP PO SCH ×2 (08:36→20:44)
[2018-09-30] MEDS: FERROUS FUMARATE (SR) TAB PO SCH (08:36)
[2018-09-30] MEDS: NEOMYC/POLYMYX/BACIT 30 GM OINT TOP SCH ×2 (08:39→20:45)
[2018-09-30] MEDS: FLUVOXAMINE 50 MG TAB PO SCH ×4 (09:00→20:46)
[2018-09-30 14:00] VITALS: BP 108/58; PULSE 80; RESP 18
--- NOTE | 2018-09-30 14:20 | PN ---
Date/Time of Note Date/Time of Note DATE: 09/30/18 TIME: 14:18 Subjective Patient complains of skin irritation on bilateral shins Objective Vital Signs Date Temp Pulse Resp B/P (MAP) Pulse Ox O2 O2 Flow FiO2 Time Delivery Rate 09/30/18 97.4 69 18 102/55 97 Room Air 07:30 (71) Intake and Output 09/29/18 09/29/18 09/30/18 1515:00 23:00 07:00 IntakeIntake Total 1200 ml 300 ml OutputOutput Total 350 ml 800 ml 950 ml BalanceBalance -350 ml 400 ml -650 ml Exam pulm-cta integ- papular erythema anterior shins sba ambulation Results/Medications Result Diagram: 09/30/18 1043 09/26/18 0712 Results 24 hrs Laboratory Tests Test 09/29/18 17:23 09/29/18 21:05 09/30/18 07:59 09/30/18 10:43 Bedside Glucose 89 116 90 White Blood Count 9.0 Red Blood Count 4.60 L Hemoglobin 13.5 L Hematocrit 40.7 L Mean Corpuscular Volume 88.5 Mean Corpuscular 29.3 Hemoglobin Mean Corpuscular 33.2 Hemoglobin Concent Red Cell Distribution 13.2 Width Platelet Count 221 # Mean Platelet Volume 10.8 H Immature Granulocytes % 0.600 H Neutrophils % 63.2 Lymphocytes % 24.8 Monocytes % 7.8 Eosinophils % 3.3 Basophils % 0.3 Nucleated Red Blood 0.0 Cells % Immature Granulocytes # 0.050 H Neutrophils # 5.7 Lymphocytes # 2.2 Monocytes # 0.7 Eosinophils # 0.3 Basophils # 0.0 Nucleated Red Blood 0.0 Cells # Test 09/30/18 11:47 Bedside Glucose 120 Medications Current Medications Diagnostic Test (Pha) (Accu-Chek) 1 ea 02 XX ; Start 09/26/18 at 02:00 Acetaminophen (Tylenol Tab) 650 mg Q6H PRN PO .PAIN 1-3 OR TEMP; Start 09/25/18 at 20:30 Aspirin (Aspirin) 81 mg DAILY PO Last administered on 09/30/18at 08:36; Admin Dose 81 MG; Start 09/26/18 at 09:00 Atorvastatin Calcium (Lipitor) 20 mg QHS PO Last administered on 09/29/18at 21:06; Admin Dose 20 MG; Start 09/25/18 at 21:00 Carvedilol (Coreg) 6.25 mg BID PO Last administered on 09/29/18 21:08; Admin Dose 6.25 MG; Start 09/25/18 at 21:00 Docusate Sodium (Colace) 100 mg Q12H PRN PO .CONSTIPATION; Start 09/25/18 at 20:30 Fluvoxamine Maleate (Luvox) 50 mg TID PO Last administered on 09/30/18 13:08; Admin Dose 50 MG; Start 09/25/18 at 21:00 Insulin Aspart (Novolog Insulin Pen) NOVOLOG *MILD* ALGORITHM WITH MEALS BEDTIME SC Last administered on 09/28/18 17:31; Admin Dose 1 UNIT; Start 09/25/18 at 21:00 Insulin Aspart (Novolog Insulin Pen) 8 unit WITH MEALS SC Last administered on 09/30/18 11:50; Admin Dose 8 UNIT; Start 09/26/18 at 07:35 Insulin Glargine (Lantus) 22 units DAILY SC Last administered on 09/30/18 08:03; Admin Dose 22 UNITS; Start 09/26/18 at 09:00 Meclizine HCl (Antivert) 25 mg TID PRN PO DIZZINESS Last administered on 09/27/18 20:11; Admin Dose 25 MG; Start 09/25/18 at 20:30 Mirtazapine (Remeron) 7.5 mg HS PO Last administered on 09/29/18 21:06; Admin Dose 7.5 MG; Start 09/25/18 at 21:00 Tamsulosin HCl (Flomax) 0.4 mg HS PO Last administered on 09/29/18 21:06; Admin Dose 0.4 MG; Start 09/25/18 at 21:00 Miscellaneous Information 1 ea NOTE XX ; Start 09/25/18 at 20:30 Glucose (Glutose) 15 gm Q15M PRN PO DECREASED GLUCOSE; Start 09/25/18 at 20:30 Glucose (Glutose) 22.5 gm Q15M PRN PO DECREASED GLUCOSE; Start 09/25/18 at 20:30 Dextrose (D50w Syringe) 25 ml Q15M PRN IV DECREASED GLUCOSE; Start 09/25/18 at 20:30 Dextrose (D50w Syringe) 50 ml Q15M PRN IV DECREASED GLUCOSE; Start 09/25/18 at 20:30 Glucagon (Glucagen) 1 mg Q15M PRN IM DECREASED GLUCOSE; Start 09/25/18 at 20:30 Glucose (Glutose) 15 gm Q15M PRN BUCCAL DECREASED GLUCOSE; Start 09/25/18 at 20:30 Docusate Sodium (Colace) 100 mg BID PO Last administered on 09/30/18 08:36; Admin Dose 100 MG; Start 09/25/18 at 21:00 Senna (Senokot) 1 tab HS PO Last administered on 09/25/18at 21:33; Admin Dose 1 TAB; Start 09/25/18 at 21:00 Magnesium Hydroxide (Milk Of Mag) 30 ml BID PRN PO CONSTIPATION Last administered on 09/26/18 08:08; Admin Dose 30 ML; Start 09/25/18 at 21:00 Lactulose (Enulose) 20 gm DAILY PRN PO CONSTIPATION; Start 09/25/18 at 21:00 Bisacodyl (Dulcolax Supp) 10 mg DAILY PRN [place] CONSTIPATION Last administered on 09/26/18at 17:50; Admin Dose 10 MG; Start 09/25/18 at 21:00 Glipizide (Glucotrol) 10 mg AC BREAKFAST DINNER PO Last administered on 09/30/18 08:01; Admin Dose 10 MG; Start 09/27/18 at 07:05 Docusate Sodium/ Ferrous Fumarate (Kevan-Sequels) 1 tab DAILY PO Last administered on 09/30/18 08:36; Admin Dose 1 TAB; Start 09/28/18 at 11:00; Stop 10/28/18 at 10:59 Neomycin/ Polymyxin/ Bacitracin (Neosporin Topical Oint) 1 applic BID TOP Last administered on 09/30/18 08:39; Admin Dose 1 APPLIC; Start 09/29/18 at 13:30 Cephalexin (Keflex) 250 mg Q8 PO ; Start 09/30/18 at 14:00 Assessment/Plan Additional Assessment/Plan Rehab- Other neuro secondary to positional vertigo; debility Steady progress, home tomorrow Integ- Patient appears to have scratched anterior shins bilaterally, and has mild superficial cellulitis. Will start short course of antibiotics Tinnitus. Anemia. Hypertension. Diabetes mellitus type 2. Hyperlipidemia. Depression. GRITTON,LIVA L. MD Sep 30, 2018 14:20
[2018-09-30] MEDS: CEPHALEXIN 250 MG CAP PO SCH ×2 (14:25→22:05)
--- NOTE | 2018-09-30 18:00 | PN ---
Date/Time of Note Date/Time of Note DATE: 09/30/18 TIME: 17:59 Assessment/Plan VTE Prophylaxis Risk score (from Ns)>0 risk: 2 [place] [facility] [place] contraindicated: low risk/ambulating Pharmacological prophylaxis: NA/contraindicated Pharm contraindication: low risk/ambulating Lines/Catheters IV Catheter Type (from [facility]): Saline Lock Urinary Cath still in place: No Assessment/Plan Hospital Course SUBJECTIVE: no new complaints OBJECTIVE: Vital signs-see below PHYSICAL EXAM: Constitutional: Well-developed, adequately built, no distress Psych: nl mood/affect, no complaints Head: atraumatic, normocephalic Eyes: nl conjunctiva, nl sclera ENMT: mucosa pink and moist, nl external ears & nose Neck: non-tender, supple Respiratory: clear to auscultation, normal air movement Cardiovascular: nl pulses, regular rate and rhythm Gastrointestinal: non-tender, soft, bowel sounds active in all 4 quadrants. Musculoskeletal/extremities: nl extremities to inspection, motor strength equal bilaterally, no focal deficit. Normal pulses,no cyanosis, no edema. Neurological: Alert oriented 3,nl speech, nl strength Skin: nl turgor ASSESSMENT/PLAN: 68-year-old male with benign positional vertigo, hypertension, dyslipidemia, psychiatric disorders, diabetes, transferred to acute rehabilitation unit for further physical therapy following BPV. 1. Benign positional vertigo -continue PRN meclizine. -PT eval and treat-good participation and tolerance. 2. Depression -continue home meds 3. DMII -Stable glycemic trends - Continue insulin regimen 4. HTN -Controlled -Continue antihypertensives 5. Dyslipidemia - on statin 6. Chronic anemia, mild -Stable H&H. DVT prophylaxis: SCDs PUD prophylaxis: Not indicated CODE STATUS: Full code Carbohydrate controlled diet. Result Diagram: 09/30/18 1043 09/26/18 0712 Results 24hrs Laboratory Tests Test 09/29/18 21:05 09/30/18 07:59 09/30/18 10:43 09/30/18 11:47 Bedside Glucose 116 90 120 White Blood Count 9.0 Red Blood Count 4.60 L Hemoglobin 13.5 L Hematocrit 40.7 L Mean Corpuscular Volume 88.5 Mean Corpuscular 29.3 Hemoglobin Mean Corpuscular 33.2 Hemoglobin Concent Red Cell Distribution 13.2 Width Platelet Count 221 # Mean Platelet Volume 10.8 H Immature Granulocytes % 0.600 H Neutrophils % 63.2 Lymphocytes % 24.8 Monocytes % 7.8 Eosinophils % 3.3 Basophils % 0.3 Nucleated Red Blood 0.0 Cells % Immature Granulocytes # 0.050 H Neutrophils # 5.7 Lymphocytes # 2.2 Monocytes # 0.7 Eosinophils # 0.3 Basophils # 0.0 Nucleated Red Blood 0.0 Cells # Test 09/30/18 17:14 Bedside Glucose 134 Exam/Review of Systems Exam Vitals Vital Signs Date Temp Pulse Resp B/P (MAP) Pulse Ox O2 O2 Flow FiO2 Time Delivery Rate 09/30/18 98.0 80 18 108/58 97 Room Air 14:00 (75) Intake and Output 09/29/18 09/29/18 09/30/18 1515:00 23:00 07:00 IntakeIntake Total 1200 ml 300 ml OutputOutput Total 350 ml 800 ml 950 ml BalanceBalance -350 ml 400 ml -650 ml Results Results 24hrs Laboratory Tests Test 09/29/18 21:05 09/30/18 07:59 09/30/18 10:43 09/30/18 11:47 Bedside Glucose 116 90 120 White Blood Count 9.0 Red Blood Count 4.60 L Hemoglobin 13.5 L Hematocrit 40.7 L Mean Corpuscular Volume 88.5 Mean Corpuscular 29.3 Hemoglobin Mean Corpuscular 33.2 Hemoglobin Concent Red Cell Distribution 13.2 Width Platelet Count 221 # Mean Platelet Volume 10.8 H Immature Granulocytes % 0.600 H Neutrophils % 63.2 Lymphocytes % 24.8 Monocytes % 7.8 Eosinophils % 3.3 Basophils % 0.3 Nucleated Red Blood 0.0 Cells % Immature Granulocytes # 0.050 H Neutrophils # 5.7 Lymphocytes # 2.2 Monocytes # 0.7 Eosinophils # 0.3 Basophils # 0.0 Nucleated Red Blood 0.0 Cells # Test 09/30/18 17:14 Bedside Glucose 134 Medications Medication Current Medications Diagnostic Test (Pha) (Accu-Chek) XX ; Start 09/26/18 at 02:00 Acetaminophen (Tylenol Tab) 650 mg Q6H PRN PO .PAIN 1-3 OR TEMP; Start 09/25/18 at 20:30 Aspirin (Aspirin) 81 mg DAILY PO Last administered on 4/2/19at 08:36; Admin Dose 81 MG; Start 09/26/18 at 09:00 Atorvastatin Calcium (Lipitor) 20 mg QHS PO Last administered on 09/29/18 21:06; Admin Dose 20 MG; Start 09/25/18 at 21:00 Carvedilol (Coreg) 6.25 mg BID PO Last administered on 09/29/18 21:08; Admin Dose 6.25 MG; Start 09/25/18 at 21:00 Docusate Sodium (Colace) 100 mg Q12H PRN PO .CONSTIPATION; Start 09/25/18 at 20:30 Fluvoxamine Maleate (Luvox) 50 mg TID PO Last administered on 09/30/18 13:08; Admin Dose 50 MG; Start 09/25/18 at 21:00 Insulin Aspart (Novolog Insulin Pen) NOVOLOG *MILD* ALGORITHM WITH MEALS BEDTIME SC Last administered on 09/28/18 17:31; Admin Dose 1 UNIT; Start 09/25/18 at 21:00 Insulin Aspart (Novolog Insulin Pen) 8 unit WITH MEALS SC Last administered on 09/30/18 17:19; Admin Dose 8 UNIT; Start 09/26/18 at 07:35 Insulin Glargine (Lantus) 22 units DAILY SC Last administered on 09/30/18 08:03; Admin Dose 22 UNITS; Start 09/26/18 at 09:00 Meclizine HCl (Antivert) 25 mg TID PRN PO DIZZINESS Last administered on 08/31 20:11; Admin Dose 25 MG; Start 09/25/18 at 20:30 Mirtazapine (Remeron) 7.5 mg HS PO Last administered on 09/29/18 21:06; Admin Dose 7.5 MG; Start 09/25/18 at 21:00 Tamsulosin HCl (Flomax) 0.4 mg HS PO Last administered on 09/29/18 21:06; Admin Dose 0.4 MG; Start 09/25/18 at 21:00 Miscellaneous Information 1 ea NOTE XX ; Start 09/25/18 at 20:30 Glucose (Glutose) 15 gm Q15M PRN PO DECREASED GLUCOSE; Start 09/25/18 at 20:30 Glucose (Glutose) 22.5 gm Q15M PRN PO DECREASED GLUCOSE; Start 09/25/18 at 20:30 Dextrose (D50w Syringe) 25 ml Q15M PRN IV DECREASED GLUCOSE; Start 09/25/18 at 20:30 Dextrose (D50w Syringe) 50 ml Q15M PRN IV DECREASED GLUCOSE; Start 09/25/18 at 20:30 Glucagon (Glucagen) 1 mg Q15M PRN IM DECREASED GLUCOSE; Start 09/25/18 at 20:30 Glucose (Glutose) 15 gm Q15M PRN BUCCAL DECREASED GLUCOSE; Start 09/25/18 at 20:30 Docusate Sodium (Colace) 100 mg BID PO Last administered on 09/30/18 08:36; Admin Dose 100 MG; Start 09/25/18 at 21:00 Senna (Senokot) 1 tab HS PO Last administered on 09/25/18at 21:33; Admin Dose 1 TAB; Start 09/25/18 at 21:00 Magnesium Hydroxide (Milk Of Mag) 30 ml BID PRN PO CONSTIPATION Last administered on 09/26/18 08:08; Admin Dose 30 ML; Start 09/25/18 at 21:00 Lactulose (Enulose) 20 gm DAILY PRN PO CONSTIPATION; Start 09/25/18 at 21:00 Bisacodyl (Dulcolax Supp) 10 mg DAILY PRN [place] CONSTIPATION Last administered on 09/26/18at 17:50; Admin Dose 10 MG; Start 09/25/18 at 21:00 Glipizide (Glucotrol) 10 mg AC BREAKFAST DINNER PO Last administered on 09/30/18 17:22; Admin Dose 10 MG; Start 09/27/18 at 07:05 Docusate Sodium/ Ferrous Fumarate (Kevan-Sequels) 1 tab DAILY PO Last administered on 09/30/18 08:36; Admin Dose 1 TAB; Start 09/28/18 at 11:00; Stop 10/28/18 at 10:59 Neomycin/ Polymyxin/ Bacitracin (Neosporin Topical Oint) 1 applic BID TOP Last administered on 09/30/18 08:39; Admin Dose 1 APPLIC; Start 09/29/18 at 13:30 Cephalexin (Keflex) 250 mg Q8 PO Last administered on 09/30/18 14:25; Admin Dose 250 MG; Start 4/2/19 at 14:00 ROSE PISANO Sep 30, 2018 18:00
[2018-09-30 20:00] VITALS: BP 129/64; PULSE 72; RESP 18
[2018-09-30] MEDS: SENNA TAB PO SCH (20:44)
[2018-09-30] MEDS: MIRTAZAPINE 15 MG TAB PO SCH (20:46)
[2018-09-30] MEDS: ATORVASTATIN 20 MG TAB PO SCH (20:47)
[2018-09-30] MEDS: TAMSULOSIN (SR) 0.4 MG CAP PO SCH (20:47)
--- NOTE | 2018-09-30 21:44 | CONS ---
Assessment/Plan Assessment/Plan Hospital Course (Demo Recall) Dizziness, resolved Hypertension Preserved ejection fraction Diabetes Psychiatric disorder Nuclear cardiac perfusion study small infarct no ischemia in May 2018 -Patient feeling better and denies any further dizziness with activity -Blood pressure trend overall stable. -Continue therapy as tolerated -DC planning Consultation Date/Type/Reason Admit Date/Time Sep 25, 2018 at 18:57 Initial Consult Date Type of Consult Cardiology Date/Time of Note DATE: 09/30/18 TIME: 21:44 24 HR Interval Summary Free Text/Dictation no dizziness, sob, palp Exam/Review of Systems Vital Signs Vitals Vital Signs Date Temp Pulse Resp B/P (MAP) Pulse Ox O2 O2 Flow FiO2 Time Delivery Rate 09/30/18 98.0 80 18 108/58 97 Room Air 14:00 (75) Intake and Output 09/29/18 09/29/18 09/30/18 1414:59 22:59 06:59 IntakeIntake Total 1200 ml 300 ml OutputOutput Total 350 ml 800 ml 950 ml BalanceBalance -350 ml 400 ml -650 ml Exam Constitutional: alert, oriented (nad) Head: normocephalic Respiratory: clear to auscultation, normal air movement Cardiovascular: regular rate and rhythm (s1s2) Gastrointestinal: soft, non-tender, bowel sounds Extremities: edema (no) Labs Result Diagram: 09/30/18 1043 09/26/18 0712 Results 24hrs Laboratory Tests Test 09/30/18 07:59 09/30/18 10:43 09/30/18 11:47 09/30/18 17:14 Bedside Glucose 90 120 134 White Blood Count 9.0 Red Blood Count 4.60 L Hemoglobin 13.5 L Hematocrit 40.7 L Mean Corpuscular Volume 88.5 Mean Corpuscular 29.3 Hemoglobin Mean Corpuscular 33.2 Hemoglobin Concent Red Cell Distribution 13.2 Width Platelet Count 221 # Mean Platelet Volume 10.8 H Immature Granulocytes % 0.600 H Neutrophils % 63.2 Lymphocytes % 24.8 Monocytes % 7.8 Eosinophils % 3.3 Basophils % 0.3 Nucleated Red Blood 0.0 Cells % Immature Granulocytes # 0.050 H Neutrophils # 5.7 Lymphocytes # 2.2 Monocytes # 0.7 Eosinophils # 0.3 Basophils # 0.0 Nucleated Red Blood 0.0 Cells # Test 09/30/18 20:43 Bedside Glucose 139 Medications Medications Current Medications Diagnostic Test (Pha) (Accu-Chek) 1 XX ; Start 09/26/18 at 02:00 Acetaminophen (Tylenol Tab) 650 mg Q6H PRN PO .PAIN 1-3 OR TEMP; Start 09/25/18 at 20:30 Aspirin (Aspirin) 81 mg DAILY PO Last administered on 09/30/18 08:36; Admin Dose 81 MG; Start 09/26/18 at 09:00 Atorvastatin Calcium (Lipitor) 20 mg QHS PO Last administered on 09/30/18 20:47; Admin Dose 20 MG; Start 09/25/18 at 21:00 Carvedilol (Coreg) 6.25 mg BID PO Last administered on 09/30/18 20:46; Admin Dose 6.25 MG; Start 09/25/18 at 21:00 Docusate Sodium (Colace) 100 mg Q12H PRN PO .CONSTIPATION; Start 09/25/18 at 20:30 Fluvoxamine Maleate (Luvox) 50 mg TID PO Last administered on 09/30/18 20:46; Admin Dose 50 MG; Start 09/25/18 at 21:00 Insulin Aspart (Novolog Insulin Pen) NOVOLOG *MILD* ALGORITHM WITH MEALS BEDTIME SC Last administered on 09/28/18 17:31; Admin Dose 1 UNIT; Start 09/25/18 at 21:00 Insulin Aspart (Novolog Insulin Pen) 8 unit WITH MEALS SC Last administered on 09/30/18 17:19; Admin Dose 8 UNIT; Start 09/26/18 at 07:35 Insulin Glargine (Lantus) 22 units DAILY SC Last administered on 09/30/18 08:03; Admin Dose 22 UNITS; Start 09/26/18 at 09:00 Meclizine HCl (Antivert) 25 mg TID PRN PO DIZZINESS Last administered on 09/27/18 20:11; Admin Dose 25 MG; Start 09/25/18 at 20:30 Mirtazapine (Remeron) 7.5 mg HS PO Last administered on 09/30/18 20:46; Admin Dose 7.5 MG; Start 09/25/18 at 21:00 Tamsulosin HCl (Flomax) 0.4 mg HS PO Last administered on 4/2/19at 20:47; Admin Dose 0.4 MG; Start 09/25/18 at 21:00 Miscellaneous Information 1 ea NOTE XX ; Start 09/25/18 at 20:30 Glucose (Glutose) 15 gm Q15M PRN PO DECREASED GLUCOSE; Start 09/25/18 at 20:30 Glucose (Glutose) 22.5 gm Q15M PRN PO DECREASED GLUCOSE; Start 09/25/18 at 20:30 Dextrose (D50w Syringe) 25 ml Q15M PRN IV DECREASED GLUCOSE; Start 09/25/18 at 20:30 Dextrose (D50w Syringe) 50 ml Q15M PRN IV DECREASED GLUCOSE; Start 09/25/18 at 20:30 Glucagon (Glucagen) 1 mg Q15M PRN IM DECREASED GLUCOSE; Start 09/25/18 at 20:30 Glucose (Glutose) 15 gm Q15M PRN BUCCAL DECREASED GLUCOSE; Start 09/25/18 at 20:30 Docusate Sodium (Colace) 100 mg BID PO Last administered on 09/30/18at 08:36; Admin Dose 100 MG; Start 09/25/18 at 21:00 Senna (Senokot) 1 tab HS PO Last administered on 09/25/18at 21:33; Admin Dose 1 TAB; Start 09/25/18 at 21:00 Magnesium Hydroxide (Milk Of Mag) 30 ml BID PRN PO CONSTIPATION Last administered on 09/26/18at 08:08; Admin Dose 30 ML; Start 09/25/18 at 21:00 Lactulose (Enulose) 20 gm DAILY PRN PO CONSTIPATION; Start 09/25/18 at 21:00 Bisacodyl (Dulcolax Supp) 10 mg DAILY PRN [place] CONSTIPATION Last administered on 09/26/18at 17:50; Admin Dose 10 MG; Start 09/25/18 at 21:00 Glipizide (Glucotrol) 10 mg AC BREAKFAST DINNER PO Last administered on 09/30/18at 17:22; Admin Dose 10 MG; Start 09/27/18 at 07:05 Docusate Sodium/ Ferrous Fumarate (Kevan-Sequels) 1 tab DAILY PO Last administered on 09/30/18 08:36; Admin Dose 1 TAB; Start 09/28/18 at 11:00; Stop 10/28/18 at 10:59 Neomycin/ Polymyxin/ Bacitracin (Neosporin Topical Oint) 1 applic BID TOP Last administered on 09/30/18at 20:45; Admin Dose 1 APPLIC; Start 09/29/18 at 13:30 Cephalexin (Keflex) 250 mg Q8 PO Last administered on 09/30/18at 14:25; Admin Dose 250 MG; Start 09/30/18 at 14:00 Obi Haji DO Sep 30, 2018 21:44
[2018-10-01 02:00] VITALS: BP 123/68; RESP 18
[2018-10-01] MEDS: ACCU-CHEK XX SCH (02:00)
[2018-10-01] MEDS: CEPHALEXIN 250 MG CAP PO SCH ×2 (06:55→13:54)
[2018-10-01 07:30] VITALS: BP 110/58; PULSE 70; RESP 18
[2018-10-01] MEDS: INSULIN ASPART [NOVOLOG] 3 ML PEN SC SCH ×4 (07:35→12:07)
[2018-10-01] MEDS: glipiZIDE 10 MG TAB PO SCH (08:11)
[2018-10-01] MEDS: INSULIN GLARGINE [LANTus] (100 UNITS/ML) SYG SC SCH (08:17)
[2018-10-01] MEDS: DOCUSATE SODIUM 100 MG CAP PO SCH (08:46)
[2018-10-01] MEDS: FLUVOXAMINE 50 MG TAB PO SCH ×2 (08:46→13:54)
[2018-10-01] MEDS: FERROUS FUMARATE (SR) TAB PO SCH (08:46)
[2018-10-01] MEDS: NEOMYC/POLYMYX/BACIT 30 GM OINT TOP SCH (08:47)
[2018-10-01] MEDS: ASPIRIN 81 MG TAB PO SCH (08:47)
--- NOTE | 2018-10-01 13:01 | DS ---
Date/Time of Note Date/Time of Note DATE: 10/01/18 TIME: 12:58 Discharge Summary Admission/Discharge Info Admit Date/Time Sep 25, 2018 at 18:57 Discharge Date/Time Discharge Diagnosis 1. Other neuro secondary to positional vertigo. 2. Cellulitis 3. Anemia. 4. Hypertension. 5. Diabetes mellitus type 2. 6. Hyperlipidemia. 7. Depression. 7. Improvements in self-care and mobility. Patient Condition: Good Hospital Course The patient was admitted for comprehensive interdisciplinary rehabilitation and made steady functional gains from a Mod/min level to a [place] level for self care tasks and mobility including ambulating over 150 feet with the use of a FWW. Patient was noted to have mild cellulitis on anterior lower extremities, which showed improvement after initiating antibiotics. Patient is being discharged home with the recommendation of home health PT, OT and RN follow up. The DC meds are per the medication reconciliation sheet. The discharge equipment recommendations include: FWW, BSC, shower chair. The patient will follow up with PMD upon DC. Home Meds Active Scripts Meclizine Hcl* (Meclizine Hcl*) 25 Mg Tablet, 25 MG PO Q8H PRN for DIZZINESS, #20 TAB Prov:SHELIA SANCHEZ MD 09/24/18 Insulin Aspart* (Novolog Insulin Pen*) 100 Unit/Ml Soln, 8 UNIT SC WITH MEALS, #30 DAYSX 3 28 Prov:RUCHI SIDHU MD 06/25/18 Aspirin (Aspirin) 81 Mg Chew, 81 MG PO DAILY, #30 TAB Prov:SMITA ORTEGA NP 05/02/18 Carvedilol* (Carvedilol*) 6.25 Mg Tablet, 6.25 MG PO BID, #60 TAB Prov:SMITA ORTEGA NP 05/02/18 Atorvastatin Calcium (Atorvastatin Calcium) 20 Mg Tablet, 20 MG PO HS, #30 TAB Prov:SMITA ORTEGA NP 05/02/18 Reported Medications Mirtazapine* (Mirtazapine*) 7.5 Mg Tablet, 7.5 MG PO HS, TAB 09/22/18 Tamsulosin Hcl* (Flomax*) 0.4 Mg Cap.er.24h, 0.4 MG PO HS, CAP 09/22/18 Atorvastatin Calcium* (Atorvastatin Calcium*) 20 Mg Tablet, 20 MG PO QHS, #30 TAB 09/22/18 Fluvoxamine Maleate* (Luvox*) 50 Mg Tab, 50 MG PO TID, TAB 09/22/18 Insulin Glargine* (Lantus*) 100 Unit/Ml Soln, 22 UNIT SC DAILY, #1 VIAL 09/22/18 Glipizide* (Glipizide*) 10 Mg Tablet, 10 MG PO BID, TAB 11/24/14 Primary Care Provider Shelton Oliver Pending Labs Laboratory Tests Test 09/30/18 17:14 09/30/18 20:43 10/01/18 08:10 10/01/18 12:04 Bedside 134 139 93 112 Glucose mg/dL (70-220) mg/dL (70-220) mg/dL (70-220) mg/dL (70-220) PETEY CARVAJAL MD Oct 01, 2018 13:01
[2018-10-01 14:39] VITALS: BP 118/66; PULSE 73; RESP 18
--- NOTE | 2018-10-01 14:43 | PN ---
Date/Time of Note Date/Time of Note DATE: 10/01/18 TIME: 14:42 Assessment/Plan VTE Prophylaxis Risk score (from Ns)>0 risk: 2 SCD applied (from Ns): No SCD contraindicated: other Pharmacological prophylaxis: NA/contraindicated Pharm contraindication: low risk/ambulating Lines/Catheters IV Catheter Type (from [facility]): [facility] Urinary Cath still in place: No Assessment/Plan Hospital Course SUBJECTIVE: For discharge today. No acute distress. OBJECTIVE: Vital signs-see below PHYSICAL EXAM: Constitutional: Well-developed, adequately built, lying in bed comfortably. Psych: nl mood/affect, no complaints Head: atraumatic, normocephalic Eyes: nl conjunctiva, nl sclera ENMT: mucosa pink and moist, nl external ears & nose Neck: non-tender, supple Respiratory: clear to auscultation, normal air movement Cardiovascular: nl pulses, regular rate and rhythm Gastrointestinal: non-tender, soft, bowel sounds active in all 4 quadrants. Musculoskeletal/extremities: nl extremities to inspection, motor strength equal bilaterally, no focal deficit. Normal pulses,no cyanosis, no edema. Neurological: Alert oriented 3,nl speech, nl strength Skin: nl turgor ASSESSMENT/PLAN: 68-year-old male with benign positional vertigo, hypertension, dyslipidemia, psychiatric disorders, diabetes, transferred to acute rehabilitation unit for further physical therapy following BPV. 1. Benign positional vertigo -Resolved -continue PRN meclizine. -PT eval and treat-good participation and tolerance. 2. Depression -continue home meds 3. DMII -Stable glycemic trends - Continue insulin regimen 4. HTN -Controlled -Continue antihypertensives 5. Dyslipidemia - on statin 6. Chronic anemia, mild -Stable H&H. DVT prophylaxis: SCDs PUD prophylaxis: Not indicated CODE STATUS: Full code Carbohydrate controlled diet. Agree with discharge plan. Patient was seen in collaboration with Dr. HARO Result Diagram: 09/30/18 1043 Results 24hrs Laboratory Tests Test 09/30/18 17:14 09/30/18 20:43 10/01/18 08:10 10/01/18 12:04 Bedside Glucose 134 139 93 112 Exam/Review of Systems Exam Vitals Vital Signs Date Temp Pulse Resp B/P (MAP) Pulse Ox O2 O2 Flow FiO2 Time Delivery Rate 4/3/19 97.7 70 18 110/58 95 Room Air 07:30 (75) Intake and Output 09/30/18 09/30/18 10/01/18 1414:59 22:59 06:59 IntakeIntake Total 1460 ml 350 ml OutputOutput Total 720 ml 1800 ml BalanceBalance 740 ml -1450 ml Results Results 24hrs Laboratory Tests Test 09/30/18 17:14 09/30/18 20:43 10/01/18 08:10 10/01/18 12:04 Bedside Glucose 134 139 93 112 Medications Medication Current Medications Diagnostic Test (Pha) (Accu-Chek) XX ; Start 09/26/18 at 02:00 Acetaminophen (Tylenol Tab) 650 mg Q6H PRN PO .PAIN 1-3 OR TEMP Last administered on 10/01/18 08:49; Admin Dose 650 MG; Start 09/25/18 at 20:30 Aspirin (Aspirin) 81 mg DAILY PO Last administered on 10/01/18 08:47; Admin Dose 81 MG; Start 09/26/18 at 09:00 Atorvastatin Calcium (Lipitor) 20 mg QHS PO Last administered on 09/30/18 20:47; Admin Dose 20 MG; Start 09/25/18 at 21:00 Carvedilol (Coreg) 6.25 mg BID PO Last administered on 10/01/18 08:46; Admin Dose 6.25 MG; Start 09/25/18 at 21:00 Docusate Sodium (Colace) 100 mg Q12H PRN PO .CONSTIPATION; Start 09/25/18 at 20:30 Fluvoxamine Maleate (Luvox) 50 mg TID PO Last administered on 10/01/18 13:54; Admin Dose 50 MG; Start 09/25/18 at 21:00 Insulin Aspart (Novolog Insulin Pen) NOVOLOG *MILD* ALGORITHM WITH MEALS BEDTIME SC Last administered on 09/28/18 17:31; Admin Dose 1 UNIT; Start 09/25/18 at 21:00 Insulin Aspart (Novolog Insulin Pen) 8 unit WITH MEALS SC Last administered on 10/01/18 12:07; Admin Dose 8 UNIT; Start 09/26/18 at 07:35 Insulin Glargine (Lantus) 22 units DAILY SC Last administered on 4/3/19at 08:17; Admin Dose 22 UNITS; Start 09/26/18 at 09:00 Meclizine HCl (Antivert) 25 mg TID PRN PO DIZZINESS Last administered on 08/31 20:11; Admin Dose 25 MG; Start 09/25/18 at 20:30 Mirtazapine (Remeron) 7.5 mg HS PO Last administered on 09/30/18 20:46; Admin Dose 7.5 MG; Start 09/25/18 at 21:00 Tamsulosin HCl (Flomax) 0.4 mg HS PO Last administered on 09/30/18 20:47; Admin Dose 0.4 MG; Start 09/25/18 at 21:00 Miscellaneous Information 1 ea NOTE XX ; Start 09/25/18 at 20:30 Glucose (Glutose) 15 gm Q15M PRN PO DECREASED GLUCOSE; Start 09/25/18 at 20:30 Glucose (Glutose) 22.5 gm Q15M PRN PO DECREASED GLUCOSE; Start 09/25/18 at 20:30 Dextrose (D50w Syringe) 25 ml Q15M PRN IV DECREASED GLUCOSE; Start 09/25/18 at 20:30 Dextrose (D50w Syringe) 50 ml Q15M PRN IV DECREASED GLUCOSE; Start 09/25/18 at 20:30 Glucagon (Glucagen) 1 mg Q15M PRN IM DECREASED GLUCOSE; Start 09/25/18 at 20:30 Glucose (Glutose) 15 gm Q15M PRN BUCCAL DECREASED GLUCOSE; Start 09/25/18 at 20:30 Docusate Sodium (Colace) 100 mg BID PO Last administered on 10/01/18 08:46; Admin Dose 100 MG; Start 09/25/18 at 21:00 Senna (Senokot) 1 tab HS PO Last administered on 09/25/18at 21:33; Admin Dose 1 TAB; Start 09/25/18 at 21:00 Magnesium Hydroxide (Milk Of Mag) 30 ml BID PRN PO CONSTIPATION Last administered on 09/26/18 08:08; Admin Dose 30 ML; Start 09/25/18 at 21:00 Lactulose (Enulose) 20 gm DAILY PRN PO CONSTIPATION; Start 09/25/18 at 21:00 Bisacodyl (Dulcolax Supp) 10 mg DAILY PRN [place] CONSTIPATION Last administered on 3/29/19at 17:50; Admin Dose 10 MG; Start 09/25/18 at 21:00 Glipizide (Glucotrol) 10 mg AC BREAKFAST DINNER PO Last administered on 10/01/18at 08:11; Admin Dose 10 MG; Start 09/27/18 at 07:05 Docusate Sodium/ Ferrous Fumarate (Kevan-Sequels) 1 tab DAILY PO Last administered on 10/01/18at 08:46; Admin Dose 1 TAB; Start 09/28/18 at 11:00; Stop 10/28/18 at 10:59 Neomycin/ Polymyxin/ Bacitracin (Neosporin Topical Oint) 1 applic BID TOP Last administered on 10/01/18at 08:47; Admin Dose 1 APPLIC; Start 09/29/18 at 13:30 Cephalexin (Keflex) 250 mg Q8 PO Last administered on 10/01/18at 13:54; Admin Dose 250 MG; Start 09/30/18 at 14:00 JAVIER ARORA NP Oct 01, 2018 14:43
--- NOTE | 2018-10-01 21:39 | CONS ---
Assessment/Plan Assessment/Plan Hospital Course (Demo Recall) Dizziness, resolved Hypertension Preserved ejection fraction Diabetes Psychiatric disorder Nuclear cardiac perfusion study small infarct no ischemia in May 2018 -Patient feeling better and denies any further dizziness with activity -Blood pressure trend overall stable. -Continue therapy as tolerated -DC planning Consultation Date/Type/Reason Admit Date/Time Sep 25, 2018 at 18:57 Initial Consult Date Type of Consult Cardiology Date/Time of Note DATE: 10/01/18 TIME: 21:38 24 HR Interval Summary Free Text/Dictation no dizziness, sob, cp Exam/Review of Systems Vital Signs Vitals Vital Signs Date Temp Pulse Resp B/P (MAP) Pulse Ox O2 O2 Flow FiO2 Time Delivery Rate 10/01/18 98.0 73 18 118/66 96 Room Air 14:39 (83) Intake and Output 09/30/18 09/30/18 10/01/18 1515:00 23:00 07:00 IntakeIntake Total 1460 ml 350 ml OutputOutput Total 720 ml 1800 ml BalanceBalance 740 ml -1450 ml Exam Constitutional: alert, oriented (nad) Head: normocephalic Respiratory: clear to auscultation, normal air movement Cardiovascular: regular rate and rhythm (s1s2) Gastrointestinal: soft, non-tender, bowel sounds Extremities: other (no edema) Labs Result Diagram: 09/30/18 1043 Results 24hrs Laboratory Tests Test 10/01/18 08:10 10/01/18 12:04 Bedside Glucose 93 112 Obi Haji DO Oct 01, 2018 21:39
--- NOTE | 2018-10-01 22:22 | CONS ---
DATE OF ADMISSION: 09/25/2018 DATE OF CONSULTATION: 10/01/2018 TYPE OF CONSULTATION: Psychological. REFERRING PHYSICIAN: Petey Sanders MD CONSULTING PSYCHOLOGIST: Neida Rios, PhD REASON FOR CONSULTATION: This consultation was requested by Dr. Marybeth Sanders in order to evaluate the cognitive and emotional functioning of this patient related to his present medical condition checking his emotional condition prior to discharge. HISTORY OF PRESENT ILLNESS: The patient is a 68-year-old male. He was admitted after some severe dizziness and difficulty in mobility and self-care. The patient was sent to the acute rehabilitation unit for acute multidisciplinary rehabilitation. The patient lives alone in a home with steps to enter. The patient does want to return home upon discharge. The patient does have a long history of depression. The patient reports that he has had 3 different episodes of extreme clinical depression. The patient also has obsessive compulsive disorder. He has constant ruminative racing thought. The patient prior to entering the acute rehabilitation unit did have some auditory hallucinations. The patient reports that he is not presently hallucinating. The patient is in slight pain. The patient does feel like he has made progress while he has been in the program. The patient is motivated to continue to work on himself and get better. The patient does see a psychiatrist, Dr. Baum and has an appointment set up for this Saturday. The patient is being discharged today and the evaluation is set up to evaluate his overall emotional state at this time. FAMILY AND SOCIAL HISTORY: The patient does live alone in a house by himself. He does want to return there after discharge. MEDICATIONS: The patient is currently on Remeron 7.5 mg at bedtime and Luvox 50 mg t.i.d. The patient reports that the Luvox should help him with his ruminative thoughts and both Luvox and Remeron to help him sleep. SUBSTANCE USE: The patient reports that he does not smoke. The patient reports that he does not use alcohol or other drugs. MENTAL STATUS EXAMINATION: APPEARANCE: The patient was seen sitting on the side of his bed. He appears to be of average height, overweight. The patient is left-handed. BEHAVIOR: The patient was cooperative during the consultation. The patient did attempt to answer all questions presented to him by the interviewer. MOOD AND AFFECT: The patient's mood appears to be slightly depressed. The patient does say that he is depressed but is dealing with it. Affect does appear to be slightly anxious. PERCEPTION: The patient reports no hallucinations or delusions at the present time. The patient reports that he has auditory hallucinations prior to entering the program. The patient was alert to person, place, situation and time. MEMORY AND COGNITION: The patient's memory and cognition appear to be intact. He was able to remember recent and remote events. He was able to state the name of the hospital, the month, date and year. The patient was able to say who the President of [facility] is, the governor of the [facility], and the mayor of the [facility], also able to spell "world" backwards on the second try. He was able to do 5 serial-7 subtractions from 100. INTELLIGENCE: Intelligence appears to fall in the average to above-average range. INSIGHT: Fair. JUDGMENT: Fair. The patient is concerned about his present medical condition. The patient wants to go back to his previous level of functioning. The patient states that he works 2 days a week and wants to go back and do that again. The patient does want to return home and be functional. DISCUSSION: The patient can likely benefit from some ongoing psychotherapy. The patient was advised that he should follow up with his psychiatrist and possibly outpatient psychotherapy as well. The patient does have an appointment on Saturday with his psychiatrist and continuing on to see the psychiatrist and stay on his medications. DIAGNOSTIC IMPRESSION: F33.2, major depressive disorder, recurrent, without psychotic features. Thank you very much, Dr. Marybeth Sanders, for referring this individual. Please do not hesitate to call if you have any additional questions. Dictated By: NEIDA RIOS PHD RK/REBECA Conf#: [id number] DID#: [id number] CC: PETEY SANDERS MD; EULALIO PELAEZ NP; NOLA HARO MD;*EndCC* MTDD
== END 2018-10-01 15:00 | disposition home health service (06) | DRG 149 ==
LOC: VRC 18:57
PROVIDERS: ADMIT Physical Medicine & Rehabilitation; ATTEND Internal Medicine Pulmonary Disease
PROC: F07Z5ZZ Bed Mobility Treatment (ICD-10-PCS; principal; 2018-09-25)
PROC: F08Z2ZZ Grooming/Personal Hygiene Treatment (ICD-10-PCS; 2018-09-25)
DX: H81.49 Vertigo of central origin, unspecified ear (principal); F33.2 Major depressive disorder, recurrent severe without psychotic features; L03.119 Cellulitis of unspecified part of limb; I10 Essential (primary) hypertension; E11.9 Type 2 diabetes mellitus without complications; F99 Mental disorder, not otherwise specified; E78.5 Hyperlipidemia, unspecified; Z79.4 Long term (current) use of insulin; H93.19 Tinnitus, unspecified ear; D50.9 Iron deficiency anemia, unspecified; E66.9 Obesity, unspecified; Z68.33 Body mass index [BMI] 33.0-33.9, adult
CPT/HCPCS: 80053; 81003; 82607; 82962; 83540; 85025; 87081; 87086; 97110; 97112; 97116; 97163; 97530; 97535; J1815